=== PATIENT | female | born 1950 | race Caucasian/White ===

== ENCOUNTER → 2017-06-11 | Outpatient (CLI) | payer OTHER ==
[~2017-06-11] MED LIST: BNZ10T PO; CHOL2000 PO; FELO2.5T17 PO; HYDR-3583 PO; INSU100I10 SQ; INSU100I23 SQ; IRON1CAP25 PO; LEVO750T24 PO; LOVA40TA2 PO; LVT.1T PO; METR500T PO; MTF500T PO
--- NOTE | 2017-06-11 19:23 | Diagnostic Imaging Report ---
INDICATION: Routine screening. The current study was also evaluated with a Computer Aided Detection (CAD) system. Comparison is made with prior exams from 02/16/2015 and 02/14/2011. FINDINGS: Moderate parenchymal heterogeneity and increased density is noted, limiting the sensitivity of mammography. There are diffuse bilateral parenchymal and vascular calcifications. No dominant mass or malignant-appearing microcalcifications are seen. The axillae are unremarkable. IMPRESSION: No mammographic features suspicious for malignancy are identified. ACR BI-RADS Category 2: Benign findings. Result letter will be mailed to the patient. Note: At least 10% of breast cancer is not imaged by mammography. Dictated by: Dictated on workstation # [id number]
== END ==
LOC: RAD 13:31
PROVIDERS: ATTEND Internal Medicine
DX: Z12.31 Encounter for screening mammogram for malignant neoplasm of breast (principal)
CPT/HCPCS: 77067

== ENCOUNTER 2018-03-11 06:26 | Outpatient (CLI) | payer MEDICARE ==
[~2018-03-11] VITALS: Ht 160 cm; Wt 113.4 kg
[2018-03-11] MEDS ORDERED: BENA20TA7 PO (13:55)
[2018-03-11] MEDS ORDERED: LEVO125T6 PO (13:55)
[2018-03-11] MEDS ORDERED: IRON150C13 PO (13:55)
[2018-03-11] MEDS ORDERED: CHOL500044 PO (13:55)
[2018-03-11] MEDS ORDERED: ATOR40TA70 PO (13:55)
[2018-03-11] MEDS ORDERED: FELO5TAB3 PO (13:55)
[2018-03-11] MEDS ORDERED: INSU100I10 SQ (13:55)
== END 2018-03-11 13:59 | disposition home or self-care (01) ==
LOC: PREOP 06:26
PROVIDERS: ATTEND Specialist
DX: Z01.818 Encounter for other preprocedural examination (principal)

== ENCOUNTER 2018-03-12 08:49 | Day surgery (SDC) | payer MEDICARE, OTHER ==
[~2018-03-12] VITALS: Ht 160 cm; Wt 113.4 kg
[~2018-03-12 08:49] MED LIST changes: +ATOR40TA70 PO; +BENA20TA7 PO; +CHOL500044 PO; +FELO5TAB3 PO; +IRON150C13 PO; +LEVO125T6 PO
--- OUTSIDE RECORDS SUMMARY | 2018-03-12 08:53 | XMS REPORT | Clinical Summary ---
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 2012 Ariana Quarles Other nondiabetic proliferative retinopathy DIABETES MELLITUS, NONINSULIN DEPENDENT (NIDDM) 250.02 Active Ariana Quarles Diabetes mellitus without mention of complication, type II or unspecified type, uncontrolled HYPERTENSION 401.1 Active Ariana Quarles Benign essential hypertension PROTEINURIA 791.0 Resolved Ariana Quarles Proteinuria HYPERTRIGLYCERIDEMIA 272.1 Active Ariana Quarles Pure hyperglyceridemia HYPOTHYROIDISM, PRIMARY 244.9 Active Ariana Quarles Unspecified hypothyroidism RETINOPATHY OF PREMATURITY STAGE 3 362.25 Resolved Ariana Quarles Retinopathy of prematurity, stage 3 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 Ariana Quarles Proteinuria DIABETIC RETINOPATHY 250.50 Active Ariana Quarles Diabetes mellitus with ophthalmic manifestations, type II or unspecified type, not stated as uncontrolled ABDOMINAL PAIN, RIGHT UPPER QUADRANT 789.01 Resolved Ariana Quarles Abdominal pain, right upper quadrant ANEMIA NOS 285.9 Correction Ariana Quarles Anemia, unspecified ANEMIA, IRON DEFICIENCY NEC 280.8 Active Ariana Quarles Other specified iron deficiency anemias HEALTH SCREENING V70.0 Resolved Ariana Quarles Routine general medical examination at a health care facility HEALTH SCREENING V70.0 Resolved Ariana Quarles Routine general medical examination at a health care facility HEALTH SCREENING V70.0 Active Ariana Quarles Routine general medical examination at a health care facility Medication List Medication Instructions Start Date Stop Date Generic Name NDC Status Provider Patient Instruction FERREX 150 150 MG CAPS 1 PO bid POLYSACCHARIDE IRON COMPLEX 11384998283 Active Chitra Newman SYNTHROID 125 MCG TABS 1 PO daily LEVOTHYROXINE SODIUM 62138066107 Active Chitra Newman FELODIPINE ER 5 MG [id number] 1 PO daily FELODIPINE 71286859593 Active Chitra Newman HUMALOG KWIKPEN 100 UNIT/ML SOLN 5 units SQ before breakfast 2012 INSULIN LISPRO (HUMAN) 26552238686 No Longer Active Ariana Quarles DIALYVITE VITAMIN D 5000 CAPS 1 po daily CHOLECALCIFEROL CAPS 47261001912 Active Ariana Quarles LIPITOR 40 MG TABS 1 PO daily ATORVASTATIN CALCIUM 32014634970 Active Chitra Newman VITAMIN D (ERGOCALCIFEROL) 50032 UNIT CAPS 1 PO daily ERGOCALCIFEROL 43526509331 No Longer Active Ariana Quarles FERROUS SULFATE CR 325 MG TBCR 1 PO daily FERROUS SULFATE No Longer Active Ariana Quarles NORVASC 2.5 MG TAB 1 PO daily AMLODIPINE BESYLATE 60583614447 No Longer Active Chitra Newman VITAMIN D 2000 UNIT TABS 2 PO daily CHOLECALCIFEROL 28112402111 No Longer Active Ariana Quarles LOVASTATIN 40 MG TABS 1 PO daily LOVASTATIN 96179074248 No Longer Active Chitra Newman METFORMIN HCL 500 MG TABS 2 PO BID METFORMIN HCL 40725885308 Active Chitra Newman LOTENSIN 10 MG TAB 1 PO daily to protect kidneys and eyes BENAZEPRIL HCL 26975606985 Active Chitra Newman LANTUS SOLOSTAR 100 UNIT/ML SOLN 17 units SQ QHS INSULIN GLARGINE 93804100036 Active Chitra Newman METANX TABS 1 po BID [id number] TABS 06277209070 No Longer Active Ariana Quarles PEN NEEDLES 08/28" 31G X 8 MM MISC as directed Dx: diabetes INSULIN PEN NEEDLE 00023033361 Active Ariana Quarles FELODIPINE 2.5 MG TB24 1 PO daily for BP FELODIPINE 45599739114 No Longer Active Ariana Quarles Immunizations Vaccine Administration Date Value Standard Description Influenza vaccine given done influenza virus vaccine, unspecified formulation Influenza vaccine given DONE influenza virus vaccine, unspecified formulation Influenza vaccine given Done influenza virus vaccine, unspecified formulation Vital Signs Date Name Value Unit Range Description blood pressure, diastolic - 8462-4 80 mm[Hg] BP santana blood pressure, systolic - 8480-6 135 mm[Hg] BP sys pulse rate E&M - 8867-4 84 /min Heart rate respiratory rate E&M - 9279-1 14 /min Resp rate weight E&M - 3141-9 261 [lb_av] Weight Measured blood pressure, diastolic - 8462-4 84 mm[Hg] BP santana blood pressure, systolic - 8480-6 164 mm[Hg] BP sys pulse rate E&M - 8867-4 80 /min Heart rate respiratory rate E&M - 9279-1 12 /min Resp rate weight E&M - 3141-9 279 [lb_av] Weight Measured blood pressure, diastolic - 8462-4 70 mm[Hg] BP santana blood pressure, systolic - 8480-6 130 mm[Hg] BP sys pulse rate E&M - 8867-4 90 /min Heart rate respiratory rate E&M - 9279-1 14 /min Resp rate temperature E&M 98.6 [degF] Body temperature weight E&M - 3141-9 275 [lb_av] Weight Measured Diagnostic Results Date Name Value Unit Range Description Clinical Lists Update: CBC,CMP,Chol,Trig,Ferritin,TSH,Free T4,HgA1c - Chemistry Estimated Glomerular Filtration Rate (calc) 79 mL/min/1.73m2 thyroxine, serum, free 1.08 ng/dL glucose, plasma fasting 132 mg/dL alkaline phosphatase, serum 84 U/L urea nitrogen, blood 20 mg/dL anion gap, serum 15 calcium, serum 9.5 mg/dL sodium, serum 137 mmol/L chloride, serum 100 mmol/L triglyceride, serum, fasting 202 mg/dL cholesterol, serum 163 mg/dL bilirubin, serum, total 0.4 mg/dL alanine aminotransferase (SGPT), serum 14 U/L aspartate aminotransferase (SGOT), serum 13 U/L protein, total, serum 6.4 g/dL potassium, serum 4.3 mmol/L carbon dioxide, venous blood 26.0 mmol/L creatinine, serum 0.8 mg/dL thyroid stimulating hormone, serum 7.37 u[iU]/mL ferritin, serum 73.9 ng/mL hemoglobin A1C, blood, as % of total hemoglobin 6.0 % albumin, serum 3.9 g/dL Clinical Lists Update: CBC,CMP,Chol,Trig,Ferritin,TSH,Free T4,HgA1c - Hematology hematocrit, blood 37 % hemoglobin, blood 11.1 g/dL platelet count 312 10*3/mm3 erythrocyte (RBC) count 4.06 10*6/mm3 leukocyte count, blood 6.9 10*3/mm3 mean corpuscular volume, RBC 90 fL red blood cell distribution width 17.0 % Clinical Lists Update: CBC,CMP,FLP,HGA1C,FERRITIN,TSH,FREE T4 - Chemistry carbon dioxide, venous blood 26.0 mmol/L HDL cholesterol, serum 43.0 mg/dL cholesterol, serum 153 mg/dL sodium, serum 137 mmol/L chloride, serum 102 mmol/L anion gap, serum 13 calcium, serum 9.2 mg/dL cholesterol/HDL ratio, serum, percent 3.6 urea nitrogen, blood 17 mg/dL glucose, plasma fasting 131 mg/dL Estimated Glomerular Filtration Rate (calc) 82 mL/min/1.73m2 triglyceride, serum, fasting 142 mg/dL thyroxine, serum, free 1.07 ng/dL thyroid stimulating hormone, serum 5.01 u[iU]/mL ferritin, serum 75.6 ng/mL LDL cholesterol, serum 82 mg/dL creatinine, serum 0.8 mg/dL potassium, serum 4.3 mmol/L Clinical Lists Update: CBC,CMP,FLP,HGA1C,FERRITIN,TSH,FREE T4 - Hematology hematocrit, blood 36 % leukocyte count, blood 7.2 10*3/mm3 platelet count 317 10*3/mm3 mean corpuscular volume, RBC 89 fL hemoglobin, blood 10.9 g/dL red blood cell distribution width 16.5 % erythrocyte (RBC) count 4.05 10*6/mm3 Office Visit: Dr Quarles's Check Up: Established Patient Visit - Chemistry Estimated Glomerular Filtration Rate (calc) 86 mL/min/1.73m2 glucose, plasma fasting 120 mg/dL cholesterol/HDL ratio, serum, percent 3.6 anion gap, serum 12 sodium, serum 140 mmol/L triglyceride, serum, fasting 131 mg/dL bilirubin, serum, total 0.4 mg/dL alanine aminotransferase (SGPT), serum 13 U/L aspartate aminotransferase (SGOT), serum 13 U/L protein, total, serum 5.9 g/dL potassium, serum 4.3 mmol/L LDL cholesterol, serum 80 mg/dL thyroid stimulating hormone, serum 3.80 u[iU]/mL hemoglobin A1C, blood, as % of total hemoglobin 5.9 % HDL cholesterol, serum 41.0 mg/dL thyroxine, serum, free 1.13 ng/dL ferritin, serum 68.9 ng/mL creatinine, serum 0.7 mg/dL carbon dioxide, venous blood 28.0 mmol/L cholesterol, serum 147 mg/dL chloride, serum 104 mmol/L calcium, serum 9.5 mg/dL urea nitrogen, blood 14 mg/dL alkaline phosphatase, serum 65 U/L albumin, serum 4.0 g/dL Office Visit: Dr Quarles's Check Up: Established Patient Visit - Hematology red blood cell distribution width 17.6 % mean corpuscular volume, RBC 90 fL leukocyte count, blood 5.5 10*3/mm3 erythrocyte (RBC) count 3.87 10*6/mm3 platelet count 271 10*3/mm3 hemoglobin, blood 10.5 g/dL hematocrit, blood 35 % Office Visit: Dr Quarles's Check Up: Established Patient Visit - Urinalysis microalbumin, urine, semiquantitative 38.3 mg/dL Encounters Code Encounter Date Provider Facility CPT-81215 Ofc Vst, Est Level IV 20:29:48 CDT Arianamarcus Quarles, DO, FACP CPT-67457 Ofc Vst, Est Level IV 16:28:57 CDT Ariana Siria Quarles, DO, FACP CPT-30788 Ofc Vst, Est Level IV 14:47:38 CDT Ariana Quarles, DO, FACP CPT-01284 Ofc Vst, Est Level III 13:43:09 [employer] Ariana Quarles, DO, FACP CPT-30150 Ofc Vst, Est Level IV 13:45:33 CDT Arianamarcus Quarles, DO, FACP CPT-40281 Ofc Vst, Est Level IV 10:19:14 CDT Ariana Quarles, DO, FACP CPT-09421 Ofc Vst, Est Level IV 10:52:40 [employer] Ariana Quarles, DO, FACP CPT-12866 Ofc Vst, Est Level IV 15:52:35 CDT Ariana Quarles, DO, FACP CPT-74259 Ofc Vst, Est Level IV 14:06:04 CDT Ariana Quarles, DO, FACP CPT-56490 Ofc Vst, Est Level IV 10:32:03 [employer] Ariana Quarles, DO, FACP CPT-28488 Ofc Vst, Est Level IV 16:32:36 CDT [facility] CPT-74990 Ofc Vst, Est Level IV 09:43:53 CDT Ariana Ozuna Robina, DO, FACP CPT-63555 Ofc Vst, Est Level IV 10:06:42 [employer] Ariana Ozuna Robina, DO, FACP CPT-22711 Ofc Vst, Est Level V 09:50:31 CDT Arianamarcus Ozuna Robina, DO, FACP CPT-75155 Ofc Vst, Est Level IV 14:59:36 CDT Ariana Ozuna Robina, DO, FACP CPT-37128 Ofc Vst, Est Level V 12:29:58 CDT Ariana Ozuna Robina, DO, FACP CPT-96263 Ofc Vst, Est Level V 11:22:18 CDT Ariana Ozuna Robina, DO, FACP CPT-94718 Ofc Vst, New Level IV 19:50:46 CDT Ariana Ozuna Robina, DO, FACP Procedures Code Procedure Name Date Entry Date Standard Description CPT-73962 Preventive, Est, (40-64) 16:45:15 MO[employer] CPT-91678 Preventive, Est, (40-64) 20:21:37 MO[employer] CPT-61492 Preventive, Est, (40-64) 16:40:52 CDT
--- OUTSIDE RECORDS SUMMARY | 2018-03-12 08:53 | XMS REPORT | Clinical Summary ---
Author Author User, [employer] Organization Ariana Quarles DO, FACP Address Unknown [...] CAPS 1 PO bid POLYSACCHARIDE IRON COMPLEX 25197089872 Active Chitra Newman SYNTHROID 125 MCG TABS 1 PO daily LEVOTHYROXINE SODIUM 29525648153 Active Chitra Newman FELODIPINE ER 5 MG [id number] 1 PO daily FELODIPINE 89138442980 Active Chitra Newman HUMALOG KWIKPEN 100 UNIT/ML SOLN 5 units SQ before breakfast 2012 INSULIN LISPRO (HUMAN) 54454097447 No Longer Active Ariana Quarles DIALYVITE VITAMIN D 5000 CAPS 1 po daily CHOLECALCIFEROL CAPS 42835218579 Active Ariana Quarles LIPITOR 40 MG TABS 1 PO daily ATORVASTATIN CALCIUM 61304578743 Active Chitra Newman VITAMIN D (ERGOCALCIFEROL) 17192 UNIT CAPS 1 PO daily ERGOCALCIFEROL 18397022111 No Longer Active Ariana Quarles FERROUS SULFATE CR 325 MG TBCR 1 PO daily FERROUS SULFATE No Longer Active Ariana Quarles NORVASC 2.5 MG TAB 1 PO daily AMLODIPINE BESYLATE 80304105258 No Longer Active Chitra Newman VITAMIN D 2000 UNIT TABS 2 PO daily CHOLECALCIFEROL 24065179648 No Longer Active Ariana Quarles LOVASTATIN 40 MG TABS 1 PO daily LOVASTATIN 88286244671 No Longer Active Chitra Newman METFORMIN HCL 500 MG TABS 2 PO BID METFORMIN HCL 47454046174 Active Chitra Newman LOTENSIN 10 MG TAB 1 PO daily to protect kidneys and eyes BENAZEPRIL HCL 91464695328 Active Chitra Newman LANTUS SOLOSTAR 100 UNIT/ML SOLN 17 units SQ QHS INSULIN GLARGINE 62600782472 Active Chitra Newman METANX TABS 1 po BID [id number] TABS 30856533824 No Longer Active Ariana Quarles PEN NEEDLES 08/28" 31G X 8 MM MISC as directed Dx: diabetes INSULIN PEN NEEDLE 21266733927 Active Ariana Quarles FELODIPINE 2.5 MG TB24 1 PO daily for BP FELODIPINE 67328417010 No Longer Active Ariana Quarles Immunizations Vaccine [...] mg/dL Encounters Code Encounter Date Provider Facility CPT-02673 Ofc Vst, Est Level IV 20:29:48 CDT Arianamarcus Quarles, DO, FACP CPT-18981 Ofc Vst, Est Level IV 16:28:57 CDT Ariana Siria Quarles, DO, FACP CPT-79701 Ofc Vst, Est Level IV 14:47:38 CDT Ariana Quarles, DO, FACP CPT-13851 Ofc Vst, Est Level III 13:43:09 BULB P[employer] Ariana Quarles, DO, FACP CPT-90143 Ofc Vst, Est Level IV 13:45:33 CDT Arianamarcus Quarles, DO, FACP CPT-61706 Ofc Vst, Est Level IV 10:19:14 CDT Ariana Quarles, DO, FACP CPT-19973 Ofc Vst, Est Level IV 10:52:40 BULB PACKER Ariana Quarles, DO, FACP CPT-35524 Ofc Vst, Est Level IV 15:52:35 CDT Ariana Quarles, DO, FACP CPT-34239 Ofc Vst, Est Level IV 14:06:04 CDT Ariana Quarles, DO, FACP CPT-74691 Ofc Vst, Est Level IV 10:32:03 BULB PACKER Ariana Quarles, DO, FACP CPT-03220 Ofc Vst, Est Level IV 16:32:36 CDT [facility] CPT-27835 Ofc Vst, Est Level IV 09:43:53 CDT Ariana Ozuna Robina, DO, FACP CPT-10844 Ofc Vst, Est Level IV 10:06:42 BULB PACKER Ariana Ozuna Robina, DO, FACP CPT-95897 Ofc Vst, Est Level V 09:50:31 CDT Arianamarcus Ozuna Robina, DO, FACP CPT-33591 Ofc Vst, Est Level IV 14:59:36 CDT Ariana Ozuna Robina, DO, FACP CPT-42205 Ofc Vst, Est Level V 12:29:58 CDT Ariana Ozuna Robina, DO, FACP CPT-39700 Ofc Vst, Est Level V 11:22:18 CDT Ariana Ozuna Robina, DO, FACP CPT-67561 Ofc Vst, New Level IV 19:50:46 CDT Ariana Ozuna Robina, DO, FACP Procedures Code Procedure Name Date Entry Date Standard Description CPT-88128 Preventive, Est, (40-64) 16:45:15 BULB PACKER CPT-10135 Preventive, Est, (40-64) 20:21:37 BULB PACKER CPT-31848 Preventive, Est, (40-64) 16:40:52 CDT
--- OUTSIDE RECORDS SUMMARY | 2018-03-12 08:54 | XMS REPORT | Clinical Summary ---
Author Author User, [employer] Organization Ariana Quarles DO, FACP Address Unknown [...] CAPS 1 PO bid POLYSACCHARIDE IRON COMPLEX 77795505581 Active Chitra Newman SYNTHROID 125 MCG TABS 1 PO daily LEVOTHYROXINE SODIUM 36389411724 Active Chitra Newman FELODIPINE ER 5 MG [id number] 1 PO daily FELODIPINE 85576478175 Active Chitra Newman HUMALOG KWIKPEN 100 UNIT/ML SOLN 5 units SQ before breakfast 2012 INSULIN LISPRO (HUMAN) 29540418351 No Longer Active Ariana Quarles DIALYVITE VITAMIN D 5000 CAPS 1 po daily CHOLECALCIFEROL CAPS 21815224302 Active Ariana Quarles LIPITOR 40 MG TABS 1 PO daily ATORVASTATIN CALCIUM 61479194708 Active Chitra Newman VITAMIN D (ERGOCALCIFEROL) 44445 UNIT CAPS 1 PO daily ERGOCALCIFEROL 78510776037 No Longer Active Ariana Quarles FERROUS SULFATE CR 325 MG TBCR 1 PO daily FERROUS SULFATE No Longer Active Ariana Quarles NORVASC 2.5 MG TAB 1 PO daily AMLODIPINE BESYLATE 48850810600 No Longer Active Chitra Newman VITAMIN D 2000 UNIT TABS 2 PO daily CHOLECALCIFEROL 35286418309 No Longer Active Ariana Quarles LOVASTATIN 40 MG TABS 1 PO daily LOVASTATIN 33120166427 No Longer Active Chitra Newman METFORMIN HCL 500 MG TABS 2 PO BID METFORMIN HCL 88885854653 Active Chitra Newman LOTENSIN 10 MG TAB 1 PO daily to protect kidneys and eyes BENAZEPRIL HCL 85135209681 Active Chitra Newman LANTUS SOLOSTAR 100 UNIT/ML SOLN 17 units SQ QHS INSULIN GLARGINE 57176996269 Active Chitra Newman METANX TABS 1 po BID [id number] TABS 21173831043 No Longer Active Ariana Quarles PEN NEEDLES 08/28" 31G X 8 MM MISC as directed Dx: diabetes INSULIN PEN NEEDLE 84307539495 Active Ariana Quarles FELODIPINE 2.5 MG TB24 1 PO daily for BP FELODIPINE 89227535054 No Longer Active Ariana Quarles Immunizations Vaccine Administration Date Value Standard Description Influenza vaccine given done influenza virus vaccine, unspecified formulation Influenza vaccine given DONE influenza virus vaccine, unspecified formulation Influenza vaccine given Done influenza virus vaccine, unspecified formulation Vital Signs Date Name Value Unit Range Description blood pressure, diastolic - 8462-4 80 mm[Hg] BP santana blood pressure, systolic - 8480-6 140 mm[Hg] BP sys pulse rate E&M - 8867-4 94 /min Heart rate respiratory rate E&M - 9279-1 14 /min Resp rate temperature E&M 98.6 [degF] Body temperature weight E&M - 3141-9 270 [lb_av] Weight Measured blood pressure, diastolic - 8462-4 80 mm[Hg] [...] E&M - 3141-9 279 [lb_av] Weight Measured Diagnostic Results Date Name Value Unit Range Description Clinical Lists Update: CBC,CMP,Chol,Trig,Ferritin,TSH,Free T4,HgA1c - Chemistry albumin, serum 3.9 g/dL sodium, serum 137 mmol/L urea nitrogen, blood 20 mg/dL calcium, serum 9.5 mg/dL chloride, serum 100 mmol/L cholesterol, serum 163 mg/dL carbon dioxide, venous blood 26.0 mmol/L creatinine, serum 0.8 mg/dL ferritin, serum 73.9 ng/mL thyroxine, serum, free 1.08 ng/dL hemoglobin A1C, blood, as % of total hemoglobin 6.0 % thyroid stimulating hormone, serum 7.37 u[iU]/mL potassium, serum 4.3 mmol/L protein, total, serum 6.4 g/dL aspartate aminotransferase (SGOT), serum 13 U/L alanine aminotransferase (SGPT), serum 14 U/L bilirubin, serum, total 0.4 mg/dL triglyceride, serum, fasting 202 mg/dL Estimated Glomerular Filtration Rate (calc) 79 mL/min/1.73m2 glucose, plasma fasting 132 mg/dL anion gap, serum 15 alkaline phosphatase, serum 84 U/L Clinical Lists Update: CBC,CMP,Chol,Trig,Ferritin,TSH,Free T4,HgA1c - Hematology hemoglobin, blood 11.1 g/dL hematocrit, blood 37 % platelet count 312 10*3/mm3 erythrocyte (RBC) count 4.06 10*6/mm3 leukocyte count, blood 6.9 10*3/mm3 mean corpuscular volume, RBC 90 fL red blood cell distribution width 17.0 % Clinical Lists Update: CBC,CMP,FLP,HGA1C,FERRITIN,TSH,FREE T4 - Chemistry thyroxine, serum, free 1.07 ng/dL urea nitrogen, blood 17 mg/dL thyroid stimulating hormone, serum 5.01 u[iU]/mL LDL cholesterol, serum 82 mg/dL potassium, serum 4.3 mmol/L triglyceride, serum, fasting 142 mg/dL sodium, serum 137 mmol/L anion gap, serum 13 cholesterol/HDL ratio, serum, percent 3.6 glucose, plasma fasting 131 mg/dL Estimated Glomerular Filtration Rate (calc) 82 mL/min/1.73m2 HDL cholesterol, serum 43.0 mg/dL calcium, serum 9.2 mg/dL chloride, serum 102 mmol/L cholesterol, serum 153 mg/dL carbon dioxide, venous blood 26.0 mmol/L creatinine, serum 0.8 mg/dL ferritin, serum 75.6 ng/mL Clinical Lists Update: CBC,CMP,FLP,HGA1C,FERRITIN,TSH,FREE T4 - Hematology hematocrit, blood 36 % hemoglobin, blood 10.9 g/dL platelet count 317 10*3/mm3 erythrocyte (RBC) count 4.05 10*6/mm3 leukocyte count, blood 7.2 10*3/mm3 mean corpuscular volume, RBC 89 fL red blood cell distribution width 16.5 % Clinical Lists Update: CBC,CMP,FLP,TSH,FREE T4,HGA1C,FERRITIN,MICROALBUMIN - Chemistry Estimated Glomerular Filtration Rate (calc) 102 mL/min/1.73m2 glucose, plasma fasting 0.6 mg/dL cholesterol/HDL ratio, serum, percent 3.3 anion gap, serum 13 sodium, serum 138 mmol/L triglyceride, serum, fasting 182 mg/dL bilirubin, serum, total 0.4 mg/dL alanine aminotransferase (SGPT), serum 14 U/L aspartate aminotransferase (SGOT), serum 14 U/L protein, total, serum 6.3 g/dL potassium, serum 4.7 mmol/L LDL cholesterol, serum 59 mg/dL thyroid stimulating hormone, serum 3.92 u[iU]/mL hemoglobin A1C, blood, as % of total hemoglobin 5.9 % HDL cholesterol, serum 42.0 mg/dL thyroxine, serum, free 1.14 ng/dL ferritin, serum 63.7 ng/mL creatinine, serum 17 mg/dL carbon dioxide, venous blood 27.0 mmol/L cholesterol, serum 137 mg/dL chloride, serum 103 mmol/L calcium, serum 9.2 mg/dL alkaline phosphatase, serum 85 U/L albumin, serum 3.8 g/dL Clinical Lists Update: CBC,CMP,FLP,TSH,FREE T4,HGA1C,FERRITIN,MICROALBUMIN - Hematology red blood cell distribution width 17.8 % mean corpuscular volume, RBC 87 fL leukocyte count, blood 6.7 10*3/mm3 erythrocyte (RBC) count 4.08 10*6/mm3 platelet count 282 10*3/mm3 hemoglobin, blood 11.0 g/dL hematocrit, blood 35.3 % Clinical Lists Update: CBC,CMP,FLP,TSH,FREE T4,HGA1C,FERRITIN,MICROALBUMIN - Urinalysis microalbumin, urine, semiquantitative 13.3 mg/dL Encounters Code Encounter Date Provider Facility CPT-22008 Ofc Vst, Est Level IV 16:50:06 CDT Ariana Siria Quarles, DO, FACP CPT-93341 Ofc Vst, Est Level IV 20:29:48 CDT Ariana Siria Quarles, DO, FACP CPT-07814 Ofc Vst, Est Level IV 16:28:57 CDT Ariana Siria Quarles, DO, FACP CPT-11282 Ofc Vst, Est Level IV 14:47:38 CDT Ariana Siria Quarles, DO, FACP CPT-88092 Ofc Vst, Est Level III 13:43:09 CARDIOTHORACIC ICU RN Ariana Quarles, DO, FACP CPT-43108 Ofc Vst, Est Level IV 13:45:33 CDT Ariana Quarles, DO, FACP CPT-99892 Ofc Vst, Est Level IV 10:19:14 CDT Arianamarcus Quarles, DO, FACP CPT-52249 Ofc Vst, Est Level IV 10:52:40 CARDIOTHORACIC ICU RN Ariana Quarles, DO, FACP CPT-49293 Ofc Vst, Est Level IV 15:52:35 CDT Ariana Quarles, DO, FACP CPT-56371 Ofc Vst, Est Level IV 14:06:04 CDT Arianamarcus Quarles, DO, FACP CPT-51159 Ofc Vst, Est Level IV 10:32:03 CARDIOTHORACIC ICU RN Ariana Ozuna Quarles, DO, FACP CPT-46846 Ofc Vst, Est Level IV 16:32:36 CDT [facility] CPT-33768 Ofc Vst, Est Level IV 09:43:53 CDT Ariana Ozuna Quarles, DO, FACP CPT-65254 Ofc Vst, Est Level IV 10:06:42 CARDIOTHORACIC ICU RN Ariana Ozuna Quarles, DO, FACP CPT-93723 Ofc Vst, Est Level V 09:50:31 CDT Ariana Ozuna Robina, DO, FACP CPT-81431 Ofc Vst, Est Level IV 14:59:36 CDT Ariana Ozuna Robina, DO, FACP CPT-73488 Ofc Vst, Est Level V 12:29:58 CDT Ariana Ozuna Quarles, DO, FACP CPT-97653 Ofc Vst, Est Level V 11:22:18 CDT Ariana Ozuna Quarles, DO, FACP CPT-51937 Ofc Vst, New Level IV 19:50:46 CDT Ariana Ozuna Quarles, DO, FACP Procedures Code Procedure Name Date Entry Date Standard Description CPT-27029 Preventive, Est, (40-64) 16:45:15 CARDIOTHORACIC ICU RN CPT-97056 Preventive, Est, (40-64) 20:21:37 CARDIOTHORACIC ICU RN CPT-36653 Preventive, Est, (40-64) 16:40:52 CDT
--- OUTSIDE RECORDS SUMMARY | 2018-03-12 08:54 | XMS REPORT | Clinical Summary ---
Author Author User, [employer] Organization Ariana Quarles DO, FACP Address Unknown [...] CAPS 1 PO bid POLYSACCHARIDE IRON COMPLEX 08528783268 Active Chitra Newman SYNTHROID 125 MCG TABS 1 PO daily LEVOTHYROXINE SODIUM 49581042556 Active Chitra Newman FELODIPINE ER 5 MG [id number] 1 PO daily FELODIPINE 35458282296 Active Chitra Newman HUMALOG KWIKPEN 100 UNIT/ML SOLN 5 units SQ before breakfast 2012 INSULIN LISPRO (HUMAN) 46852186979 No Longer Active Ariana Quarles DIALYVITE VITAMIN D 5000 CAPS 1 po daily CHOLECALCIFEROL CAPS 63611528552 Active Ariana Quarles LIPITOR 40 MG TABS 1 PO daily ATORVASTATIN CALCIUM 54747758380 Active Chitra Newman VITAMIN D (ERGOCALCIFEROL) 22333 UNIT CAPS 1 PO daily ERGOCALCIFEROL 59060674601 No Longer Active Ariana Quarles FERROUS SULFATE CR 325 MG TBCR 1 PO daily FERROUS SULFATE No Longer Active Ariana Quarles NORVASC 2.5 MG TAB 1 PO daily AMLODIPINE BESYLATE 03562019269 No Longer Active Chitra Newman VITAMIN D 2000 UNIT TABS 2 PO daily CHOLECALCIFEROL 58264665808 No Longer Active Ariana Quarles LOVASTATIN 40 MG TABS 1 PO daily LOVASTATIN 74843001501 No Longer Active Chitra Newman METFORMIN HCL 500 MG TABS 2 PO BID METFORMIN HCL 53117329991 Active Chitra Newman LOTENSIN 10 MG TAB 1 PO daily to protect kidneys and eyes BENAZEPRIL HCL 14400606223 Active Chitra Newman LANTUS SOLOSTAR 100 UNIT/ML SOLN 17 units SQ QHS INSULIN GLARGINE 45833920638 Active Chitra Newman METANX TABS 1 po BID [id number] TABS 62075838845 No Longer Active Ariana Quarles PEN NEEDLES 08/28" 31G X 8 MM MISC as directed Dx: diabetes INSULIN PEN NEEDLE 64074680040 Active Ariana Quarles FELODIPINE 2.5 MG TB24 1 PO daily for BP FELODIPINE 51095057462 No Longer Active Ariana Quarles Immunizations Vaccine [...] mg/dL Encounters Code Encounter Date Provider Facility CPT-42432 Ofc Vst, Est Level IV 16:50:06 CDT Ariana Siria Quarles, DO, FACP CPT-39960 Ofc Vst, Est Level IV 20:29:48 CDT Ariana Siria Quarles, DO, FACP CPT-09151 Ofc Vst, Est Level IV 16:28:57 CDT Ariana Siria Quarles, DO, FACP CPT-05466 Ofc Vst, Est Level IV 14:47:38 CDT Ariana Siria Quarles, DO, FACP CPT-99396 Ofc Vst, Est Level III 13:43:09 SPINNING LATHE OPERATOR HYDRAULIC Ariana Quarles, DO, FACP CPT-58880 Ofc Vst, Est Level IV 13:45:33 CDT Ariana Quarles, DO, FACP CPT-60826 Ofc Vst, Est Level IV 10:19:14 CDT Arianamarcus Quarles, DO, FACP CPT-55440 Ofc Vst, Est Level IV 10:52:40 SPINNING LATHE OPERATOR HYDRAULIC Ariana Quarles, DO, FACP CPT-94485 Ofc Vst, Est Level IV 15:52:35 CDT Ariana Quarles, DO, FACP CPT-77026 Ofc Vst, Est Level IV 14:06:04 CDT Arianamarcus Quarles, DO, FACP CPT-03729 Ofc Vst, Est Level IV 10:32:03 SPINNING LATHE OPERATOR HYDRAULIC Ariana Ozuna Quarles, DO, FACP CPT-73516 Ofc Vst, Est Level IV 16:32:36 CDT Ariana [facility] OFFICE CPT-79056 Ofc Vst, Est Level IV 09:43:53 CDT Ariana Ozuna Quarles, DO, FACP CPT-89987 Ofc Vst, Est Level IV 10:06:42 SPINNING LATHE OPERATOR HYDRAULIC Ariana Ozuna Quarles, DO, FACP CPT-73578 Ofc Vst, Est Level V 09:50:31 CDT Ariana Ozuna Robina, DO, FACP CPT-03371 Ofc Vst, Est Level IV 14:59:36 CDT Ariana Ozuna Robina, DO, FACP CPT-94567 Ofc Vst, Est Level V 12:29:58 CDT Ariana Ozuna Quarles, DO, FACP CPT-91736 Ofc Vst, Est Level V 11:22:18 CDT Ariana Ozuna Quarles, DO, FACP CPT-00770 Ofc Vst, New Level IV 19:50:46 CDT Ariana Ozuna Quarles, DO, FACP Procedures Code Procedure Name Date Entry Date Standard Description CPT-57252 Preventive, Est, (40-64) 16:45:15 SPINNING LATHE OPERATOR HYDRAULIC CPT-24659 Preventive, Est, (40-64) 20:21:37 SPINNING LATHE OPERATOR HYDRAULIC CPT-24719 Preventive, Est, (40-64) 16:40:52 CDT
--- OUTSIDE RECORDS SUMMARY | 2018-03-12 08:55 | XMS REPORT | Clinical Summary ---
Author Author User, [employer] Organization Ariana Quarles DO, FACP Address Unknown [...] CAPS 1 PO bid POLYSACCHARIDE IRON COMPLEX 91711633615 Active Chitra Newman SYNTHROID 125 MCG TABS 1 PO daily LEVOTHYROXINE SODIUM 18873203682 Active Chitra Newman FELODIPINE ER 5 MG [id number] 1 PO daily FELODIPINE 62241330444 Active Chitra Newman HUMALOG KWIKPEN 100 UNIT/ML SOLN 5 units SQ before breakfast 2012 INSULIN LISPRO (HUMAN) 21208567279 No Longer Active Ariana Quarles DIALYVITE VITAMIN D 5000 CAPS 1 po daily CHOLECALCIFEROL CAPS 01771326141 Active Ariana Quarles LIPITOR 40 MG TABS 1 PO daily ATORVASTATIN CALCIUM 22488316214 Active Chitra Newman VITAMIN D (ERGOCALCIFEROL) 66433 UNIT CAPS 1 PO daily ERGOCALCIFEROL 40098634983 No Longer Active Ariana Quarles FERROUS SULFATE CR 325 MG TBCR 1 PO daily FERROUS SULFATE No Longer Active Ariana Quarles NORVASC 2.5 MG TAB 1 PO daily AMLODIPINE BESYLATE 72352135853 No Longer Active Chitra Newman VITAMIN D 2000 UNIT TABS 2 PO daily CHOLECALCIFEROL 09406659190 No Longer Active Ariana Quarles LOVASTATIN 40 MG TABS 1 PO daily LOVASTATIN 06616486103 No Longer Active Chitra Newman METFORMIN HCL 500 MG TABS 2 PO BID METFORMIN HCL 10657253251 Active Chitra Newman LOTENSIN 10 MG TAB 1 PO daily to protect kidneys and eyes BENAZEPRIL HCL 28332818954 Active Chitra Newman LANTUS SOLOSTAR 100 UNIT/ML SOLN 17 units SQ QHS INSULIN GLARGINE 67431809151 Active Chitra Newman METANX TABS 1 po BID [id number] TABS 23070840040 No Longer Active Ariana Quarles PEN NEEDLES 08/28" 31G X 8 MM MISC as directed Dx: diabetes INSULIN PEN NEEDLE 60096920339 Active Ariana Quarles FELODIPINE 2.5 MG TB24 1 PO daily for BP FELODIPINE 63383094320 No Longer Active Ariana Quarles Immunizations Vaccine [...] fasting 132 mg/dL anion gap, serum 15 sodium, serum 137 mmol/L triglyceride, serum, fasting 202 mg/dL bilirubin, serum, total 0.4 mg/dL alanine aminotransferase (SGPT), serum 14 U/L aspartate aminotransferase (SGOT), serum 13 U/L protein, total, serum 6.4 g/dL potassium, serum 4.3 mmol/L thyroid stimulating hormone, serum 7.37 u[iU]/mL hemoglobin A1C, blood, as % of total hemoglobin 6.0 % thyroxine, serum, free 1.08 ng/dL ferritin, serum 73.9 ng/mL creatinine, serum 0.8 mg/dL carbon dioxide, venous blood 26.0 mmol/L cholesterol, serum 163 mg/dL chloride, serum 100 mmol/L calcium, serum 9.5 mg/dL urea nitrogen, blood 20 mg/dL alkaline phosphatase, serum 84 U/L albumin, serum 3.9 g/dL Clinical Lists Update: CBC,CMP,Chol,Trig,Ferritin,TSH,Free T4,HgA1c - Hematology platelet count 312 10*3/mm3 red blood cell distribution width 17.0 % hematocrit, blood 37 % erythrocyte (RBC) count 4.06 10*6/mm3 hemoglobin, blood 11.1 g/dL mean corpuscular volume, RBC 90 fL leukocyte count, blood 6.9 10*3/mm3 Clinical Lists Update: CBC,CMP,FLP,HGA1C,FERRITIN,TSH,FREE T4 - Chemistry urea nitrogen, blood 17 mg/dL potassium, serum 4.3 mmol/L creatinine, serum 0.8 mg/dL sodium, serum 137 mmol/L ferritin, serum 75.6 ng/mL glucose, plasma fasting 131 mg/dL thyroxine, serum, free 1.07 ng/dL cholesterol/HDL ratio, serum, percent 3.6 carbon dioxide, venous blood 26.0 mmol/L thyroid stimulating hormone, serum 5.01 u[iU]/mL calcium, serum 9.2 mg/dL triglyceride, serum, fasting 142 mg/dL chloride, serum 102 mmol/L LDL cholesterol, serum 82 mg/dL cholesterol, serum 153 mg/dL Estimated Glomerular Filtration Rate (calc) 82 mL/min/1.73m2 HDL cholesterol, serum 43.0 mg/dL anion gap, serum 13 Clinical Lists Update: CBC,CMP,FLP,HGA1C,FERRITIN,TSH,FREE T4 - Hematology hematocrit, blood 36 % platelet count 317 10*3/mm3 red blood cell distribution width 16.5 % erythrocyte (RBC) count 4.05 10*6/mm3 leukocyte count, blood 7.2 10*3/mm3 mean corpuscular volume, RBC 89 fL hemoglobin, blood 10.9 g/dL Clinical Lists Update: CBC,CMP,FLP,TSH,FREE T4,HGA1C,FERRITIN,MICROALBUMIN - Chemistry albumin, serum 3.8 g/dL alkaline phosphatase, serum 85 U/L calcium, serum 9.2 mg/dL chloride, serum 103 mmol/L cholesterol, serum 137 mg/dL carbon dioxide, venous blood 27.0 mmol/L creatinine, serum 17 mg/dL ferritin, serum 63.7 ng/mL thyroxine, serum, free 1.14 ng/dL HDL cholesterol, serum 42.0 mg/dL hemoglobin A1C, blood, as % of total hemoglobin 5.9 % thyroid stimulating hormone, serum 3.92 u[iU]/mL LDL cholesterol, serum 59 mg/dL potassium, serum 4.7 mmol/L protein, total, serum 6.3 g/dL aspartate aminotransferase (SGOT), serum 14 U/L alanine aminotransferase (SGPT), serum 14 U/L bilirubin, serum, total 0.4 mg/dL triglyceride, serum, fasting 182 mg/dL sodium, serum 138 mmol/L anion gap, serum 13 cholesterol/HDL ratio, serum, percent 3.3 glucose, plasma fasting 0.6 mg/dL Estimated Glomerular Filtration Rate (calc) 102 mL/min/1.73m2 Clinical Lists Update: CBC,CMP,FLP,TSH,FREE T4,HGA1C,FERRITIN,MICROALBUMIN - Hematology platelet count 282 10*3/mm3 leukocyte count, blood 6.7 10*3/mm3 mean corpuscular volume, RBC 87 fL hemoglobin, blood 11.0 g/dL red blood cell distribution width 17.8 % hematocrit, blood 35.3 % erythrocyte (RBC) count 4.08 10*6/mm3 Clinical Lists Update: CBC,CMP,FLP,TSH,FREE T4,HGA1C,FERRITIN,MICROALBUMIN - Urinalysis microalbumin, urine, semiquantitative 13.3 mg/dL Encounters Code Encounter Date Provider Facility CPT-93126 Ofc Vst, Est Level IV 16:50:06 CDT Ariana Siria Quarles, DO, FACP CPT-38160 Ofc Vst, Est Level IV 20:29:48 CDT Ariana Siria Quarles, DO, FACP CPT-72954 Ofc Vst, Est Level IV 16:28:57 CDT Ariana Siria Quarles, DO, FACP CPT-90544 Ofc Vst, Est Level IV 14:47:38 CDT Ariana Siria Quarles, DO, FACP CPT-74636 Ofc Vst, Est Level III 13:43:09 PRINTED CIRCUIT BOARDS CONTACT PRINTER Ariana Quarles, DO, FACP CPT-39975 Ofc Vst, Est Level IV 13:45:33 CDT Ariana Quarles, DO, FACP CPT-20535 Ofc Vst, Est Level IV 10:19:14 CDT Arianamarcus Quarles, DO, FACP CPT-20794 Ofc Vst, Est Level IV 10:52:40 PR[employer]ED CIRCUIT BOAR[employer] CONTACT PRINTER Ariana Quarles, DO, FACP CPT-86783 Ofc Vst, Est Level IV 15:52:35 CDT Ariana Quarles, DO, FACP CPT-16130 Ofc Vst, Est Level IV 14:06:04 CDT Arianamarcus Quarles, DO, FACP CPT-75548 Ofc Vst, Est Level IV 10:32:03 PRINTED CIRCUIT BOAR[employer] CONTACT PRINTER Ariana Ozuna Quarles, DO, FACP CPT-45789 Ofc Vst, Est Level IV 16:32:36 CDT Ariana [facility] OFFICE CPT-51492 Ofc Vst, Est Level IV 09:43:53 CDT Ariana Ozuna Quarles, DO, FACP CPT-36951 Ofc Vst, Est Level IV 10:06:42 PRINTED CIRCUIT BOAR[employer] CONTACT PRINTER Ariana Ozuna Quarles, DO, FACP CPT-53444 Ofc Vst, Est Level V 09:50:31 CDT Ariana Ozuna Robina, DO, FACP CPT-28275 Ofc Vst, Est Level IV 14:59:36 CDT Ariana Ozuna Robina, DO, FACP CPT-50040 Ofc Vst, Est Level V 12:29:58 CDT Ariana Ozuna Quarles, DO, FACP CPT-95251 Ofc Vst, Est Level V 11:22:18 CDT Ariana Ozuna Quarles, DO, FACP CPT-41095 Ofc Vst, New Level IV 19:50:46 CDT Ariana Ozuna Quarles, DO, FACP Procedures Code Procedure Name Date Entry Date Standard Description CPT-76513 Preventive, Est, (40-64) 16:45:15 PRINTED CIRCUIT BOARDS CONTACT PRINTER CPT-48295 Preventive, Est, (40-64) 20:21:37 PRINTED CIRCUIT BOARDS CONTACT PRINTER CPT-80444 Preventive, Est, (40-64) 16:40:52 CDT
--- OUTSIDE RECORDS SUMMARY | 2018-03-12 08:55 | XMS REPORT | Clinical Summary ---
Author Author User, [employer] Organization Ariana Quarles DO, FACP Address Unknown [...] right upper quadrant ANEMIA NOS 285.9 Correction Ariaan Quarles Anemia, unspecified ANEMIA, IRON DEFICIENCY NEC [...] CAPS 1 PO bid POLYSACCHARIDE IRON COMPLEX 99952625426 Active Chitra Newman SYNTHROID 125 MCG TABS 1 PO daily LEVOTHYROXINE SODIUM 39411289794 Active Chitra Newman FELODIPINE ER 5 MG [id number] 1 PO daily FELODIPINE 15525416722 Active Chitra Newman HUMALOG KWIKPEN 100 UNIT/ML SOLN 5 units SQ before breakfast 2012 INSULIN LISPRO (HUMAN) 28563838431 No Longer Active Ariana Quarles DIALYVITE VITAMIN D 5000 CAPS 1 po daily CHOLECALCIFEROL CAPS 88684228657 Active Ariana Quarles LIPITOR 40 MG TABS 1 PO daily ATORVASTATIN CALCIUM 02285663847 Active Chitra Newman VITAMIN D (ERGOCALCIFEROL) 54057 UNIT CAPS 1 PO daily ERGOCALCIFEROL 77383646071 No Longer Active Ariana Quarles FERROUS SULFATE CR 325 MG TBCR 1 PO daily FERROUS SULFATE No Longer Active Ariana Quarles NORVASC 2.5 MG TAB 1 PO daily AMLODIPINE BESYLATE 12846178537 No Longer Active Chitra Newman VITAMIN D 2000 UNIT TABS 2 PO daily CHOLECALCIFEROL 41607824368 No Longer Active Ariana Quarles LOVASTATIN 40 MG TABS 1 PO daily LOVASTATIN 42370681307 No Longer Active Chitra Newman METFORMIN HCL 500 MG TABS 2 PO BID METFORMIN HCL 93918904185 Active Chitra Newman LOTENSIN 10 MG TAB 1 PO daily to protect kidneys and eyes BENAZEPRIL HCL 22337952209 Active Chitra Newman LANTUS SOLOSTAR 100 UNIT/ML SOLN 17 units SQ QHS INSULIN GLARGINE 28383999005 Active Chitra Newman METANX TABS 1 po BID [id number] TABS 72203183085 No Longer Active Ariana Quarles PEN NEEDLES 08/28" 31G X 8 MM MISC as directed Dx: diabetes INSULIN PEN NEEDLE 95846553285 Active Ariana Quarles FELODIPINE 2.5 MG TB24 1 PO daily for BP FELODIPINE 54331964571 No Longer Active Ariana Quarles Immunizations Vaccine [...] mg/dL Encounters Code Encounter Date Provider Facility CPT-37964 Ofc Vst, Est Level IV 16:50:06 CDT Ariana Siria Quarles, DO, FACP CPT-92010 Ofc Vst, Est Level IV 20:29:48 CDT Ariana Siria Quarles, DO, FACP CPT-31877 Ofc Vst, Est Level IV 16:28:57 CDT Ariana Siria Quarles, DO, FACP CPT-44157 Ofc Vst, Est Level IV 14:47:38 CDT Ariana Siria Quarles, DO, FACP CPT-29506 Ofc Vst, Est Level III 13:43:09 CUSTOMER COUNTER REPRESENTATIVE Ariana Quarles, DO, FACP CPT-06959 Ofc Vst, Est Level IV 13:45:33 CDT Ariana Quarles, DO, FACP CPT-04859 Ofc Vst, Est Level IV 10:19:14 CDT Arianamarcus Quarles, DO, FACP CPT-50080 Ofc Vst, Est Level IV 10:52:40 CUSTOMER COUNTER REPRESENTATIVE Ariana Quarles, DO, FACP CPT-29911 Ofc Vst, Est Level IV 15:52:35 CDT Ariana Quarles, DO, FACP CPT-74256 Ofc Vst, Est Level IV 14:06:04 CDT Arianamarcus Quarles, DO, FACP CPT-80201 Ofc Vst, Est Level IV 10:32:03 CUSTOMER COUNTER REPRESENTATIVE Ariana Ozuna Quarles, DO, FACP CPT-65051 Ofc Vst, Est Level IV 16:32:36 CDT Ariana [facility] OFFICE CPT-27601 Ofc Vst, Est Level IV 09:43:53 CDT Ariana Ozuna Quarles, DO, FACP CPT-91306 Ofc Vst, Est Level IV 10:06:42 CUSTOMER COUNTER REPRESENTATIVE Ariana Ozuna Quarles, DO, FACP CPT-12620 Ofc Vst, Est Level V 09:50:31 CDT Ariana Ozuna Robina, DO, FACP CPT-77075 Ofc Vst, Est Level IV 14:59:36 CDT Ariana Ozuna Robina, DO, FACP CPT-48428 Ofc Vst, Est Level V 12:29:58 CDT Ariana Ozuna Quarles, DO, FACP CPT-69437 Ofc Vst, Est Level V 11:22:18 CDT Ariana Ozuna Quarles, DO, FACP CPT-53210 Ofc Vst, New Level IV 19:50:46 CDT Ariana Ozuna Quarles, DO, FACP Procedures Code Procedure Name Date Entry Date Standard Description CPT-45494 Preventive, Est, (40-64) 16:45:15 CUSTOMER COUNTER REPRESENTATIVE CPT-10466 Preventive, Est, (40-64) 20:21:37 CUSTOMER COUNTER REPRESENTATIVE CPT-99218 Preventive, Est, (40-64) 16:40:52 CDT
--- OUTSIDE RECORDS SUMMARY | 2018-03-12 08:56 | XMS REPORT | Clinical Summary ---
Author Author jossy wesley [place], [place] [address] Phone Unavailable Allergies, Adverse Reactions, Alerts Allergy Name Reaction Description Start Date Severity Status Provider No Known Allergies Bree Yanez Conditions or Problems Problem Name Problem Code Onset Date Status Entry Date Provider Comment Standard Description Annotate HYPERCHOLESTEROLEMIA 272.0 Active Ariana Quarles PURE HYPERCHOLESTEROLEMIA DIABETES MELLITUS, NONINSULIN DEPENDENT (NIDDM) 250.02 Active Ariana Quarles DIABETES MELLITUS WITHOUT MENTION OF COMPLICATION, TYPE II OR UNSPECIFIED TYPE, UNCONTROLLED HYPERTENSION 401.1 Active Ariana Quarles ESSENTIAL HYPERTENSION, BENIGN HYPERTRIGLYCERIDEMIA 272.1 Active Ariana Quarles PURE HYPERGLYCERIDEMIA HYPOTHYROIDISM, PRIMARY 244.9 Active Ariana Quarles UNSPECIFIED HYPOTHYROIDISM 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 Ariana Quarles PROTEINURIA DIABETIC RETINOPATHY 250.50 Active Ariana Quarles DIABETES WITH OPHTHALMIC MANIFESTATIONS, TYPE II OR UNSPECIFIED TYPE , NOT STATED UNCONTROLLED ANEMIA, IRON DEFICIENCY NEC 280.8 Active Ariana Quarles OTHER SPECIFIED IRON DEFICIENCY ANEMIAS Medication List Medication Instructions Start Date Stop Date Generic Name NDC Status Provider Patient Instruction PEN NEEDLES 5/16" 31G X 8 MM MISC as directed Dx: diabetes INSULIN PEN NEEDLE 09542265324 Active Ariana Quarles LANTUS SOLOSTAR 100 UNIT/ML SOLN 17 units SQ QHS INSULIN GLARGINE 25712364674 Active Chitra Newman LOTENSIN 10 MG TAB 1 PO daily to protect kidneys and eyes BE[place]PR[place] HCL 83421969719 Active Chitra Newman METFORMIN HCL 500 MG TABS 2 PO BID METFORMIN HCL 99603699874 Active Chitra Newman LIPITOR 40 MG TABS 1 PO daily ATORVASTATIN CALCIUM 28310698417 Active Chitra G[place]is DIALYVITE VITAMIN D 5000 CAPS 1 po daily CHOLECALCIFEROL CAPS 74799513854 Active Ariana Quarles FERREX 150 150 MG CAPS 1 PO daily POLYSACCHARIDE IRON COMPLEX 85178614598 Active Chitra Trent FELODIPINE ER 5 MG [id number] 1 PO daily FELODIPINE 57767596581 Active Ariana Quarles SYNTHROID 125 MCG TABS 1 PO daily LEVOTHYROXINE SODIUM 37513563072 Active Ariana Quarles Immunizations Vaccine Administration Date Value Standard Description Influenza vaccine DONE influenza virus vaccine, unspecified formulation Influenza vaccine Done influenza virus vaccine, unspecified formulation Vital Signs Date Name Value Unit Range Description blood pressure, diastolic 84 mm[Hg] BP santana blood pressure, systolic 164 mm[Hg] BP sys pulse rate E&M 80 /min Heart rate respiratory rate E&M 12 /min Resp rate weight E&M 279 [lb_av] Weight Measured blood pressure, diastolic 70 mm[Hg] BP santana blood pressure, systolic 130 mm[Hg] BP sys pulse rate E&M 90 /min Heart rate respiratory rate E&M 14 /min Resp rate temperature E&M 98.6 [degF] Body temperature weight E&M 275 [lb_av] Weight Measured blood pressure, diastolic 90 mm[Hg] BP santana blood pressure, systolic 160 mm[Hg] BP sys pulse rate E&M 80 /min Heart rate respiratory rate E&M 16 /min Resp rate weight E&M 277 [lb_av] Weight Measured Diagnostic Results Date Name Value Unit Range Description Clinical Lists Update: CBC,CMP,Chol,Trig,Ferritin,TSH,Free T4,HgA1c - Chemistry albumin, serum 3.9 g/dL thyroid stimulating hormone, serum 7.37 u[iU]/mL alkaline phosphatase, serum 84 U/L glucose, plasma fasting 132 mg/dL urea nitrogen, blood 20 mg/dL calcium, serum 9.5 mg/dL anion gap, serum 15 chloride, serum 100 mmol/L sodium, serum 137 mmol/L cholesterol, serum 163 mg/dL triglyceride, serum, fasting 202 mg/dL carbon dioxide, venous blood 26.0 mmol/L bilirubin, serum, total 0.4 mg/dL creatinine, serum 0.8 mg/dL alanine aminotransferase (SGPT), serum 14 U/L ferritin, serum 73.9 ng/mL aspartate aminotransferase (SGOT), serum 13 U/L thyroxine, serum, free 1.08 ng/dL protein, total, serum 6.4 g/dL hemoglobin A1C, blood, as % of total hemoglobin 6.0 % potassium, serum 4.3 mmol/L Estimated Glomerular Filtration Rate (calc) 79 mL/min/1.73m2 Clinical Lists Update: CBC,CMP,Chol,Trig,Ferritin,TSH,Free T4,HgA1c - Hematology hemoglobin, blood 11.1 g/dL hematocrit, blood 37 % platelet count 312 10*3/mm3 erythrocyte (RBC) count 4.06 10*6/mm3 leukocyte count, blood 6.9 10*3/mm3 mean corpuscular volume, RBC 90 fL red blood cell distribution width 17.0 % Clinical Lists Update: CMP,FLP,TSH,Free T4,HgA1c - Chemistry aspartate aminotransferase (SGOT), serum 14 U/L thyroid stimulating hormone, serum 2.88 u[iU]/mL alanine aminotransferase (SGPT), serum 14 U/L carbon dioxide, venous blood 23.0 mmol/L bilirubin, serum, total 0.4 mg/dL cholesterol, serum 152 mg/dL triglyceride, serum, fasting 177 mg/dL chloride, serum 105 mmol/L sodium, serum 139 mmol/L calcium, serum 9.2 mg/dL anion gap, serum 16 urea nitrogen, blood 22 mg/dL cholesterol/HDL ratio, serum 3.9 alkaline phosphatase, serum 73 U/L glucose, plasma fasting 136 mg/dL albumin, serum 4.0 g/dL Estimated Glomerular Filtration Rate (calc) 75 mL/min/1.73m2 protein, total, serum 6.4 g/dL thyroxine, serum, free 1.14 ng/dL HDL cholesterol, serum 39.0 mg/dL potassium, serum 4.8 mmol/L hemoglobin A1C, blood, as % of total hemoglobin 5.8 % LDL cholesterol, serum 78 mg/dL creatinine, serum 0.8 mg/dL Office Visit: Dr Quarles's Check Up: Established Patient Visit - Chemistry Estimated Glomerular Filtration Rate (calc) 86 mL/min/1.73m2 glucose, plasma fasting 120 mg/dL cholesterol/HDL ratio, serum 3.6 anion gap, serum 12 sodium, serum [...] hematocrit, blood 35 % Office Visit: Dr Quarles'josefina Check Up: Established Patient Visit - Urinalysis microalbumin, urine, semiquantitative 38.3 mg/dL
--- OUTSIDE RECORDS SUMMARY | 2018-03-12 08:56 | XMS REPORT | Clinical Summary ---
Author Author User, [employer] Organization Ariana Quarles DO, FACP Address Unknown [...] CAPS 1 PO bid POLYSACCHARIDE IRON COMPLEX 83760255488 Active Chitra Newman SYNTHROID 125 MCG TABS 1 PO daily LEVOTHYROXINE SODIUM 49233007018 Active Chitra Newman FELODIPINE ER 5 MG [id number] 1 PO daily FELODIPINE 05003726029 Active Chitra Newman HUMALOG KWIKPEN 100 UNIT/ML SOLN 5 units SQ before breakfast 2012 INSULIN LISPRO (HUMAN) 74168365365 No Longer Active Ariana Quarles DIALYVITE VITAMIN D 5000 CAPS 1 po daily CHOLECALCIFEROL CAPS 49036490638 Active Ariana Quarles LIPITOR 40 MG TABS 1 PO daily ATORVASTATIN CALCIUM 51673877005 Active Chitra Newman VITAMIN D (ERGOCALCIFEROL) 26299 UNIT CAPS 1 PO daily ERGOCALCIFEROL 40733937301 No Longer Active Ariana Quarles FERROUS SULFATE CR 325 MG TBCR 1 PO daily FERROUS SULFATE No Longer Active Ariana Quarles NORVASC 2.5 MG TAB 1 PO daily AMLODIPINE BESYLATE 30767327135 No Longer Active Chitra Newman VITAMIN D 2000 UNIT TABS 2 PO daily CHOLECALCIFEROL 82538646151 No Longer Active Ariana Quarles LOVASTATIN 40 MG TABS 1 PO daily LOVASTATIN 54614555422 No Longer Active Chitra Newman METFORMIN HCL 500 MG TABS 2 PO BID METFORMIN HCL 05584265896 Active Chitra Newman LOTENSIN 10 MG TAB 1 PO daily to protect kidneys and eyes BE[place]PR[place] HCL 93137424987 Active Chitra Newman LANTUS SOLOSTAR 100 UNIT/ML SOLN 17 units SQ QHS INSULIN GLARGINE 72576820235 Active Chitra Newman METANX TABS 1 po BID [id number] TABS 22722261058 No Longer Active Ariana Quarles PEN NEEDLES 08/28" 31G X 8 MM MISC as directed Dx: diabetes INSULIN PEN NEEDLE 40027733553 Active Ariana Quarles FELODIPINE 2.5 MG TB24 1 PO daily for BP FELODIPINE 31425395280 No Longer Active Ariana Quarles Immunizations Vaccine [...] mg/dL Encounters Code Encounter Date Provider Facility CPT-33508 Ofc Vst, Est Level IV 16:50:06 CDT Ariana Siria Quarles, DO, FACP CPT-17447 Ofc Vst, Est Level IV 20:29:48 CDT Ariana Siria Quarles, DO, FACP CPT-69108 Ofc Vst, Est Level IV 16:28:57 CDT Ariana Siria Quarles, DO, FACP CPT-96958 Ofc Vst, Est Level IV 14:47:38 CDT Ariana Siria Quarles, DO, FACP CPT-39447 Ofc Vst, Est Level III 13:43:09 CARDIAC REHAB NURSE Ariana Quarles, DO, FACP CPT-52562 Ofc Vst, Est Level IV 13:45:33 CDT Ariana Quarles, DO, FACP CPT-37593 Ofc Vst, Est Level IV 10:19:14 CDT Arianamarcus Quarles, DO, FACP CPT-51948 Ofc Vst, Est Level IV 10:52:40 CARDIAC REHAB NURSE Ariana Quarles, DO, FACP CPT-70911 Ofc Vst, Est Level IV 15:52:35 CDT Ariana Quarles, DO, FACP CPT-34677 Ofc Vst, Est Level IV 14:06:04 CDT Arianamarcus Quarles, DO, FACP CPT-94395 Ofc Vst, Est Level IV 10:32:03 CARDIAC REHAB NURSE Ariana Ozuna Quarles, DO, FACP CPT-59898 Ofc Vst, Est Level IV 16:32:36 CDT Ariana [facility] OFFICE CPT-84908 Ofc Vst, Est Level IV 09:43:53 CDT Ariana Ozuna Quarles, DO, FACP CPT-51257 Ofc Vst, Est Level IV 10:06:42 CARDIAC REHAB NURSE Ariana Ozuna Quarles, DO, FACP CPT-35910 Ofc Vst, Est Level V 09:50:31 CDT Ariana Ozuna Robina, DO, FACP CPT-12098 Ofc Vst, Est Level IV 14:59:36 CDT Ariana Ozuna Robina, DO, FACP CPT-09823 Ofc Vst, Est Level V 12:29:58 CDT Ariana Ozuna Quarles, DO, FACP CPT-87500 Ofc Vst, Est Level V 11:22:18 CDT Ariana Ozuna Quarles, DO, FACP CPT-11314 Ofc Vst, New Level IV 19:50:46 CDT Ariana Ozuna Quarles, DO, FACP Procedures Code Procedure Name Date Entry Date Standard Description CPT-46784 Preventive, Est, (40-64) 16:45:15 CARDIAC REHAB NURSE CPT-83745 Preventive, Est, (40-64) 20:21:37 CARDIAC REHAB NURSE CPT-64798 Preventive, Est, (40-64) 16:40:52 CDT
--- OUTSIDE RECORDS SUMMARY | 2018-03-12 08:56 | XMS REPORT | Clinical Summary ---
Author Author User, [employer] Organization Ariana Quarles DO, FACP Address Unknown [...] ABDOMINAL PAIN, RIGHT UPPER QUADRANT 789.01 Resolved rAiana Quarles Abdominal pain, right upper quadrant ANEMIA [...] CAPS 1 PO bid POLYSACCHARIDE IRON COMPLEX 39892444271 Active Chitra Newman SYNTHROID 125 MCG TABS 1 PO daily LEVOTHYROXINE SODIUM 46626331272 Active Chitra Newman FELODIPINE ER 5 MG [id number] 1 PO daily FELODIPINE 13301279454 Active Chitra Newman HUMALOG KWIKPEN 100 UNIT/ML SOLN 5 units SQ before breakfast 2012 INSULIN LISPRO (HUMAN) 43611700958 No Longer Active Ariana Quarles DIALYVITE VITAMIN D 5000 CAPS 1 po daily CHOLECALCIFEROL CAPS 79091632516 Active Ariana Quarles LIPITOR 40 MG TABS 1 PO daily ATORVASTATIN CALCIUM 32793777722 Active Chitra Newman VITAMIN D (ERGOCALCIFEROL) 31030 UNIT CAPS 1 PO daily ERGOCALCIFEROL 01081948806 No Longer Active Ariana Quarles FERROUS SULFATE CR 325 MG TBCR 1 PO daily FERROUS SULFATE No Longer Active Ariana Quarles NORVASC 2.5 MG TAB 1 PO daily AMLODIPINE BESYLATE 54526279065 No Longer Active Chitra Newman VITAMIN D 2000 UNIT TABS 2 PO daily CHOLECALCIFEROL 90329013681 No Longer Active Ariana Quarles LOVASTATIN 40 MG TABS 1 PO daily LOVASTATIN 38943695904 No Longer Active Chitra Newman METFORMIN HCL 500 MG TABS 2 PO BID METFORMIN HCL 03275848141 Active Chitra Newman LOTENSIN 10 MG TAB 1 PO daily to protect kidneys and eyes BENAZEPRIL HCL 02586262693 Active Chitra Newman LANTUS SOLOSTAR 100 UNIT/ML SOLN 17 units SQ QHS INSULIN GLARGINE 70269486283 Active Chitra Newman METANX TABS 1 po BID [id number] TABS 57601184667 No Longer Active Ariana Quarles PEN NEEDLES 08/28" 31G X 8 MM MISC as directed Dx: diabetes INSULIN PEN NEEDLE 19905869729 Active Ariana Quarles FELODIPINE 2.5 MG TB24 1 PO daily for BP FELODIPINE 17798201061 No Longer Active Ariana Quarles Immunizations Vaccine [...] mg/dL Encounters Code Encounter Date Provider Facility CPT-64308 Ofc Vst, Est Level IV 16:50:06 CDT Ariana Siria Quarles, DO, FACP CPT-77720 Ofc Vst, Est Level IV 20:29:48 CDT Ariana Siria Quarles, DO, FACP CPT-41356 Ofc Vst, Est Level IV 16:28:57 CDT Ariana Siria Quarles, DO, FACP CPT-11724 Ofc Vst, Est Level IV 14:47:38 CDT Ariana Siria Quarles, DO, FACP CPT-22230 Ofc Vst, Est Level III 13:43:09 NURSING SERVICE DIRECTOR Ariana Quarles, DO, FACP CPT-37532 Ofc Vst, Est Level IV 13:45:33 CDT Ariana Quarles, DO, FACP CPT-45970 Ofc Vst, Est Level IV 10:19:14 CDT Arianamarcus Quarles, DO, FACP CPT-65326 Ofc Vst, Est Level IV 10:52:40 NURSING SERVICE DIRECTOR Ariana Quarles, DO, FACP CPT-24236 Ofc Vst, Est Level IV 15:52:35 CDT Ariana Quarles, DO, FACP CPT-90937 Ofc Vst, Est Level IV 14:06:04 CDT Arianamarcus Quarles, DO, FACP CPT-36835 Ofc Vst, Est Level IV 10:32:03 NURSING SERVICE DIRECTOR Ariana Ozuna Quarles, DO, FACP CPT-93927 Ofc Vst, Est Level IV 16:32:36 CDT Ariana ARTHUR OFFICE CPT-63965 Ofc Vst, Est Level IV 09:43:53 CDT Ariana Ozuna Quarles, DO, FACP CPT-57396 Ofc Vst, Est Level IV 10:06:42 NURSING SERVICE DIRECTOR Ariana Ozuna Quarles, DO, FACP CPT-42575 Ofc Vst, Est Level V 09:50:31 CDT Ariana Ozuna Robina, DO, FACP CPT-48370 Ofc Vst, Est Level IV 14:59:36 CDT Ariana Ozuna Robina, DO, FACP CPT-23923 Ofc Vst, Est Level V 12:29:58 CDT Ariana Ozuna Quarles, DO, FACP CPT-00148 Ofc Vst, Est Level V 11:22:18 CDT Ariana Ozuna Quarles, DO, FACP CPT-44861 Ofc Vst, New Level IV 19:50:46 CDT Ariana Ozuna Quarles, DO, FACP Procedures Code Procedure Name Date Entry Date Standard Description CPT-20116 Preventive, Est, (40-64) 16:45:15 NURSING SERVICE DIRECTOR CPT-88314 Preventive, Est, (40-64) 20:21:37 NURSING SERVICE DIRECTOR CPT-03031 Preventive, Est, (40-64) 16:40:52 CDT
--- OUTSIDE RECORDS SUMMARY | 2018-03-12 08:57 | XMS REPORT | Clinical Summary ---
Author Author jossy wesley DO, [place] [id number] Phone Unavailable Allergies, Adverse Reactions, Alerts Allergy [...] as directed Dx: diabetes INSULIN PEN NEEDLE 63259809030 Active Ariana Quarles LANTUS SOLOSTAR 100 UNIT/ML SOLN 17 units SQ QHS INSULIN GLARGINE 35840050619 Active Chitra Newman LOTENSIN 10 MG TAB 1 PO daily to protect kidneys and eyes BENAZEPRIL HCL 47665729082 Active Chitra Newman METFORMIN HCL 500 MG TABS 2 PO BID METFORMIN HCL 27049683082 Active Chitra Newman LIPITOR 40 MG TABS 1 PO daily ATORVASTATIN CALCIUM 51326554668 Active Chitra Gipsontis DIALYVITE VITAMIN D 5000 CAPS 1 po daily CHOLECALCIFEROL CAPS 97665908252 Active Ariana Quarles FERREX 150 150 MG CAPS 1 PO daily POLYSACCHARIDE IRON COMPLEX 38821810569 Active Chitra Trent FELODIPINE ER 5 MG [id number] 1 PO daily FELODIPINE 88864147014 Active Ariana Quarles SYNTHROID 125 MCG TABS 1 PO daily LEVOTHYROXINE SODIUM 54708763655 Active Ariana Quarles Immunizations Vaccine Administration Date [...]
--- OUTSIDE RECORDS SUMMARY | 2018-03-12 08:57 | XMS REPORT | Clinical Summary ---
Author Author jossy wesley DO, [place] [address] Phone Unavailable Allergies, Adverse Reactions, Alerts Allergy [...] OR UNSPECIFIED TYPE , NOT STATED UNCONTROLLED ANEMIA NOS 285.9 Active Ariana Quarles UNSPECIFIED ANEMIA HEALTH SCREENING V70.0 Active Ariana Quarles ROUTINE GENERAL MEDICAL EXAMINATION AT HEALTH CARE FACILITY Medication List Medication Instructions Start Date Stop Date Generic Name NDC Status Provider Patient Instruction PEN NEEDLES /16" 31G X 8 MM MISC as directed Dx: diabetes INSULIN PEN NEEDLE 92547312678 Active Chitra Newman LANTUS SOLOSTAR 100 UNIT/ML SOLN 17 units SQ Q INSULIN GLARGINE 60487221262 Active Chitra Newman LOTENSIN 10 MG TAB 1 PO daily to protect kidneys and eyes BENAZEPRIL HCL 58339714933 Active Chitra Newman METFORMIN HCL 500 MG TABS 2 PO BID METFORMIN HCL 48616039492 Active Chitra Newman FELODIPINE 2.5 MG [id number] 1 po daily FELODIPINE 26307311611 Active Arianamarcus Quarles SYNTHROID 0.112 MG TAB 1 PO daily LEVOTHYROXINE SODIUM 84872080958 Active Chitra Newman FERROUS SULFATE CR 325 MG TBCR 1 PO daily FERROUS SULFATE Active Ariana Quarles LIPITOR 40 MG TABS 1 PO daily ATORVASTATIN CALCIUM 38336783765 Active Chitra Newman DIALYVITE VITAMIN D 5000 CAPS 1 po daily CHOLECALCIFEROL CAPS 60816287582 Active Ariana Quarles Immunizations Vaccine Administration Date Value Standard Description Influenza vaccine DONE influenza virus vaccine, unspecified formulation Influenza vaccine Done influenza virus vaccine, unspecified formulation Vital Signs Date Name Value Unit Range Description blood pressure, diastolic 90 mm[Hg] BP santana blood pressure, systolic 160 mm[Hg] BP sys pulse rate E&M 80 /min Heart rate respiratory rate E&M 16 /min Respiratory rate weight E&M 277 [lb_av] Weight Measured blood pressure, diastolic 70 mm[Hg] BP santana blood pressure, systolic 110 mm[Hg] BP sys pulse rate E&M 84 /min Heart rate respiratory rate E&M 14 /min Respiratory rate temperature E&M 98.6 [degF] Bdy temp weight E&M 270 [lb_av] Weight Measured Diagnostic Results Date Name Value Unit Range Description Clinical Lists Update: CMP,FLP,TSH,Free T4,HgA1c - Chemistry Estimated Glomerular Filtration Rate (calc) 75 mL/min/1.73m2 triglyceride, serum, fasting 177 mg/dL potassium, serum 4.8 mmol/L urea nitrogen, blood 22 mg/dL sodium, serum 139 mmol/L calcium, serum 9.2 mg/dL protein, total, serum 6.4 g/dL chloride, serum 105 mmol/L glucose, plasma fasting 136 mg/dL cholesterol, serum 152 mg/dL aspartate aminotransferase (SGOT), serum 14 U/L carbon dioxide, venous blood 23.0 mmol/L anion gap, serum 16 creatinine, serum 0.8 mg/dL alanine aminotransferase (SGPT), serum 14 U/L thyroxine, serum, free 1.14 ng/dL albumin, serum 4.0 g/dL HDL cholesterol, serum 39.0 mg/dL bilirubin, serum, total 0.4 mg/dL hemoglobin A1C, blood, as % of total hemoglobin 5.8 % cholesterol/HDL ratio, serum 3.9 thyroid stimulating hormone, serum 2.88 u[iU]/mL LDL cholesterol, serum 78 mg/dL alkaline phosphatase, serum 73 U/L Office Visit: Dr Quarles's Check Up: Established Patient Visit - Chemistry albumin, serum 3.9 g/dL alkaline phosphatase, serum 85 U/L urea nitrogen, blood 16 mg/dL calcium, serum 9.0 mg/dL chloride, serum 110 mmol/L cholesterol, serum 144 mg/dL carbon dioxide, venous blood 23.0 mmol/L creatinine, serum 0.6 mg/dL thyroxine, serum, free 1.03 ng/dL HDL cholesterol, serum 38.0 mg/dL hemoglobin A1C, blood, as % of total hemoglobin 5.7 % thyroid stimulating hormone, serum 3.08 u[iU]/mL LDL cholesterol, serum 72 mg/dL potassium, serum 4.6 mmol/L protein, total, serum 6.4 g/dL aspartate aminotransferase (SGOT), serum 14 U/L alanine aminotransferase (SGPT), serum 14 U/L bilirubin, serum, total 0.4 mg/dL triglyceride, serum, fasting 172 mg/dL sodium, serum 142 mmol/L anion gap, serum 14 cholesterol/HDL ratio, serum 3.8 glucose, plasma fasting 99 mg/dL Office Visit: Dr Quarles's Check Up: Established Patient Visit - Hematology red blood cell distribution width 17.2 % mean corpuscular volume, RBC 89 fL leukocyte count, blood 5.8 10*3/mm3 erythrocyte (RBC) count 4.24 10*6/mm3 platelet count 244 10*3/mm3 hemoglobin, blood 11.5 g/dL hematocrit, blood 38 %
--- OUTSIDE RECORDS SUMMARY | 2018-03-12 08:57 | XMS REPORT | Clinical Summary ---
Author Author jossy wesley DO, [place] [address] Phone Unavailable Allergies, Adverse Reactions, Alerts Allergy [...] NOS 285.9 Active Ariana Quarles UNSPECIFIED ANEMIA Medication List Medication Instructions Start Date Stop Date Generic Name NDC Status Provider Patient Instruction PEN NEEDLES 08/28" 31G X 8 MM MISC as directed Dx: diabetes INSULIN PEN NEEDLE 21750319161 Active Chitra Newman LANTUS SOLOSTAR 100 UNIT/ML SOLN 17 units SQ QHS INSULIN GLARGINE 74013947247 Active Chitra Newman LOTENSIN 10 MG TAB 1 PO daily to protect kidneys and eyes BENAZEPRIL HCL 54480838294 Active Chitra Trent METFORMIN HCL 500 MG TABS 2 PO BID METFORMIN HCL 26113043859 Active Chitra Gipsontis FELODIPINE 2.5 MG [id number] 1 po daily FELODIPINE 78446563024 Active Ariana Quarles SYNTHROID 0.112 MG TAB 1 PO daily LEVOTHYROXINE SODIUM 38092407525 Active Chitra Trent LIPITOR 40 MG TABS 1 PO daily ATORVASTATIN CALCIUM 33790879916 Active Chitragene Newman DIALYVITE VITAMIN D 5000 CAPS 1 po daily CHOLECALCIFEROL CAPS 79364789291 Active Ariana Quarles FERREX 150 150 MG CAPS 1 PO daily POLYSACCHARIDE IRON COMPLEX 79152266403 Active Ariana Quarles Immunizations Vaccine Administration Date Value Standard Description Influenza vaccine DONE influenza virus vaccine, unspecified formulation Influenza vaccine Done influenza virus vaccine, unspecified formulation Vital Signs Date Name Value Unit Range Description blood pressure, diastolic 70 mm[Hg] BP santana blood pressure, systolic 130 mm[Hg] BP sys pulse rate E&M 90 /min Heart rate respiratory rate E&M 14 /min Respiratory rate temperature E&M 98.6 [degF] Bdy temp weight E&M 275 [lb_av] Weight Measured blood [...] Estimated Glomerular Filtration Rate (calc) 75 mL/min/1.73m2 albumin, serum 4.0 g/dL cholesterol/HDL ratio, serum 3.9 anion gap, serum 16 sodium, serum 139 mmol/L triglyceride, serum, fasting 177 mg/dL bilirubin, serum, total 0.4 mg/dL alanine aminotransferase (SGPT), serum 14 U/L aspartate aminotransferase (SGOT), serum 14 U/L protein, total, serum 6.4 g/dL potassium, serum 4.8 mmol/L LDL cholesterol, serum 78 mg/dL thyroid stimulating hormone, serum 2.88 u[iU]/mL hemoglobin A1C, blood, as % of total hemoglobin 5.8 % HDL cholesterol, serum 39.0 mg/dL thyroxine, serum, free 1.14 ng/dL creatinine, serum 0.8 mg/dL carbon dioxide, venous blood 23.0 mmol/L cholesterol, serum 152 mg/dL chloride, serum 105 mmol/L calcium, serum 9.2 mg/dL urea nitrogen, blood 22 mg/dL alkaline phosphatase, serum 73 U/L glucose, plasma fasting 136 mg/dL Office Visit: Dr Quarles's Check Up: Established Patient Visit - Chemistry Estimated Glomerular Filtration Rate (calc) 86 mL/min/1.73m2 glucose, plasma fasting 99 mg/dL glucose, plasma fasting 120 mg/dL cholesterol/HDL ratio, serum 3.8 cholesterol/HDL ratio, serum 3.6 anion gap, serum 14 anion gap, serum 12 sodium, serum 142 mmol/L sodium, serum 140 mmol/L triglyceride, serum, fasting 172 mg/dL triglyceride, serum, fasting 131 mg/dL bilirubin, serum, total 0.4 mg/dL bilirubin, serum, total 0.4 mg/dL alanine aminotransferase (SGPT), serum 14 U/L alanine aminotransferase (SGPT), serum 13 U/L aspartate aminotransferase (SGOT), serum 14 U/L aspartate aminotransferase (SGOT), serum 13 U/L protein, total, serum 6.4 g/dL protein, total, serum 5.9 g/dL potassium, serum 4.6 mmol/L potassium, serum 4.3 mmol/L LDL cholesterol, serum 72 mg/dL LDL cholesterol, serum 80 mg/dL thyroid stimulating hormone, serum 3.08 u[iU]/mL thyroid stimulating hormone, serum 3.80 u[iU]/mL hemoglobin A1C, blood, as % of total hemoglobin 5.7 % hemoglobin A1C, blood, as % of total hemoglobin 5.9 % HDL cholesterol, serum 38.0 mg/dL HDL cholesterol, serum 41.0 mg/dL thyroxine, serum, free 1.03 ng/dL thyroxine, serum, free 1.13 ng/dL ferritin, serum 68.9 ng/mL creatinine, serum 0.6 mg/dL creatinine, serum 0.7 mg/dL carbon dioxide, venous blood 23.0 mmol/L carbon dioxide, venous blood 28.0 mmol/L cholesterol, serum 144 mg/dL cholesterol, serum 147 mg/dL chloride, serum 110 mmol/L chloride, serum 104 mmol/L calcium, serum 9.0 mg/dL calcium, serum 9.5 mg/dL urea nitrogen, blood 16 mg/dL urea nitrogen, blood 14 mg/dL alkaline phosphatase, serum 85 U/L alkaline phosphatase, serum 65 U/L albumin, serum 3.9 g/dL albumin, serum 4.0 g/dL Office Visit: Dr Quarles's Check Up: Established Patient Visit - Hematology red blood cell distribution width 17.2 % red blood cell distribution width 17.6 % mean corpuscular volume, RBC 89 fL mean corpuscular volume, RBC 90 fL leukocyte count, blood 5.8 10*3/mm3 leukocyte count, blood 5.5 10*3/mm3 erythrocyte (RBC) count 4.24 10*6/mm3 erythrocyte (RBC) count 3.87 10*6/mm3 platelet count 244 10*3/mm3 platelet count 271 10*3/mm3 hemoglobin, blood 11.5 g/dL hemoglobin, blood 10.5 g/dL hematocrit, blood 38 % hematocrit, blood 35 % Office Visit: Dr Quarles's Check Up: Established Patient Visit - Urinalysis microalbumin, urine, semiquantitative 38.3 mg/dL
--- OUTSIDE RECORDS SUMMARY | 2018-03-12 08:57 | XMS REPORT | Continuity of Care Document ---
Author Author [facility] Organization [facility] Address Unknown Phone Unavailable Allergies Active Description Code Type Severity Reaction Onset Reported/Identified Relationship to Patient Clinical Status Yes No Known Drug Allergies [id number] Drug Allergy Mild N/A 08/06/2008 Medications There is no data. Problems Date Dx Coded Attending Type Code Diagnosis Diagnosed By 04/12/2015 BHAVYA BABB DOI Ot Z12.31 04/28/2015 HOLLEY SMITH SHANTEL Ot Z12.31 02/08/2017 HOLLEY SMITH SHANTEL Ot Z12.31 ENCNTR SCREEN MAMMOGRAM FOR MALIGNANT NE 06/11/2017 HOLLEY SMITH SHANTEL Ot Z12.31 ENCNTR SCREEN MAMMOGRAM FOR MALIGNANT NE 06/12/2017 HOLLEY SMITH SHANTEL Ot Z12.31 ENCNTR SCREEN MAMMOGRAM FOR MALIGNANT NE 03/05/2018 HOLLEY SMITH SHANTEL Ot Z12.31 ENCNTR SCREEN MAMMOGRAM FOR MALIGNANT NE 03/05/2018 HOLLEY SMITH SHANTEL Ot Z12.31 ENCNTR SCREEN MAMMOGRAM FOR MALIGNANT NE Procedures There is no data. Results There is no data. Encounters ACCT No. Visit Date/Time Discharge Status Pt. Type Provider Facility Loc./Unit Complaint [id number] 06/11/2017 13:31:00 06/11/2017 23:59:59 CLS Outpatient BABB DO, SHANTEL [facility] RAD SCREENING [id number] 02/13/2017 15:30:00 02/13/2017 23:59:59 CLS Preadmit BABB DO, SHANTEL [facility] RAD Z12.31 [id number] 02/16/2015 09:22:00 02/16/2015 23:59:59 CLS Outpatient BABB DO, SHANTEL [facility] RAD SCREENING [id number] 03/12/2018 12:00:00 PEN Preadmit JARRED SHARP MD [facility] CATARACT LEFT EYE
[2018-03-12] MEDS ORDERED: MOXIFLOXACIN OPHTH SOLN 5 MG/ML 0.3 ML SYRINGE OP ONE (09:15)
[2018-03-12] MEDS ORDERED: LIDOCAINE PF 1% 2 ML AMP IR PRN (09:15)
[2018-03-12] MEDS ORDERED: TIMOLOL MALEATE 0.5% 5 ML (TIMOPTIC) BTL OU PRN (09:15)
[2018-03-12] MEDS ORDERED: POVIDONE (BETADINE) OPHTH SOLN 5% 30 ML OP ONE (09:15)
[2018-03-12 09:19] VITALS: BP 148/68
[2018-03-12] MEDS: TETRACAINE 0.5% OPHTH SOLN 4 ML BTL (SINGLE DOSE ONLY) OU PRN ×4 (09:23→09:52)
[2018-03-12] MEDS: CYCLOPENTOLATE 1% (CYCLOGYL) 2 ML DROPS OP SCH ×3 (09:34→09:52)
[2018-03-12] MEDS: PHENYLEPHRINE 10% OPHTH (NEO-SYN) 5 ML BTL OU SCH ×3 (09:34→09:52)
[2018-03-12] MEDS ORDERED: MIDAZOLAM 2 MG/2 ML (VERSED) VIAL ONE (10:03)
[2018-03-12] MEDS ORDERED: acetaZOLAMIDE ER 500 MG CAP (DIAMOX SEQUELS) PO ONE (10:30)
--- NOTE | 2018-03-12 10:37 | Ophthalmologist Pre-Op Note ---
Pre-Operative Progress Note H&P Reviewed The H&P was reviewed, patient examined and no changes noted. Date H&P Reviewed: Mar 12, 2018 Time H&P Reviewed: 10:15 Pre-Op Dx Cataract, Left Eye JARRED SHARP MD Mar 12, 2018 10:37
--- NOTE | 2018-03-12 10:37 | Ophthalmology Operative Report ---
Cataract removal/placement IOL PREOPERATIVE DIAGNOSIS: Cataract Left Eye POSTOPERATIVE DIAGNOSIS: Cataract Left Eye PROCEDURE: Cataract removal and placement of posterior chamber implant, left eye SURGEON: Vimal Sharp ANESTHESIA: Topical with sedation COMPLICATIONS: None ESTIMATED BLOOD LOSS: Minimal DESCRIPTION OF PROCEDURE: After proper informed consent was obtained, the patient, a 67 female, was taken to the Operating Room and the left eye was anesthetized with tetracaine. The left eye was then prepped and draped in the usual manner. A wire lid speculum was placed. A paracentesis was made at the left hand position. Preservative free lidocaine was injected into the anterior chamber followed by viscoelastic. A clear corneal incision was made in the temporal position. A capsulorrhexis was preformed and the central nuclear and cortical material were removed. The posterior capsule was polished and an Shahriar [id number] 27.0was placed into the capsular bag. The residual viscoelastic was aspirated and balanced saline solution was injected into the anterior chamber. Moxifloxacin was injected into the anterior chamber. The wound was checked and found to be water tight. The patient tolerated the procedure well without complications. VIMAL SHARP MD Mar 12, 2018 10:37
[2018-03-12 10:47] VITALS: BP 143/67
--- NOTE | 2018-03-12 10:48 | Anesthesia-General Post-Op ---
MAC Patient Condition Mental Status/LOC: Same as Preop Cardiovascular: Satisfactory Nausea/Vomiting: Absent Respiratory: Satisfactory Pain: Controlled Complications: Absent Post Op Complications Complications None Follow Up Care/Instructions Patient Instructions None needed. Anesthesiology Discharge Order Discharge Order Patient is doing well, no complaints, stable vital signs, no apparent adverse anesthesia problems. No complications reported per nursing. JACKSON DELONG CRNA Mar 12, 2018 10:48
== END 2018-03-12 10:47 | disposition home or self-care (01) ==
LOC: SDC 08:49
PROVIDERS: ATTEND Specialist
DX: H25.12 Age-related nuclear cataract, left eye (principal); I10 Essential (primary) hypertension; E11.9 Type 2 diabetes mellitus without complications; E78.00 Pure hypercholesterolemia, unspecified; E66.01 Morbid (severe) obesity due to excess calories; Z87.891 Personal history of nicotine dependence; Z79.4 Long term (current) use of insulin; Z79.899 Other long term (current) drug therapy; Z68.41 Body mass index [BMI] 40.0-44.9, adult
CPT/HCPCS: 82962

== ENCOUNTER 2018-03-17 05:42 | Outpatient (CLI) | payer MEDICARE | END 2018-03-17 12:54 | disposition home or self-care (01) | LOC: PREOP 05:42 | PROVIDERS: ATTEND Specialist | DX: Z01.818 Encounter for other preprocedural examination (principal) ==

== ENCOUNTER 2018-03-19 09:55 | Day surgery (SDC) | payer MEDICARE ==
[~2018-03-19] VITALS: Ht 160 cm; Wt 113.4 kg
[2018-03-19 10:00] VITALS: BP 172/89
[2018-03-19] MEDS ORDERED: POVIDONE (BETADINE) OPHTH SOLN 5% 30 ML OP ONE (10:15)
[2018-03-19] MEDS ORDERED: TIMOLOL MALEATE 0.5% 5 ML (TIMOPTIC) BTL OU PRN (10:15)
[2018-03-19] MEDS ORDERED: LIDOCAINE PF 1% 2 ML AMP IR PRN (10:15)
[2018-03-19] MEDS ORDERED: MOXIFLOXACIN OPHTH SOLN 5 MG/ML 0.3 ML SYRINGE OP ONE (10:15)
[2018-03-19] MEDS: TETRACAINE 0.5% OPHTH SOLN 4 ML BTL (SINGLE DOSE ONLY) OU PRN ×4 (10:20→10:48)
[2018-03-19] MEDS: CYCLOPENTOLATE 1% (CYCLOGYL) 2 ML DROPS OP SCH ×3 (10:34→10:48)
[2018-03-19] MEDS: PHENYLEPHRINE 10% OPHTH (NEO-SYN) 5 ML BTL OU SCH ×3 (10:34→10:48)
[2018-03-19] MEDS ORDERED: MIDAZOLAM 2 MG/2 ML (VERSED) VIAL ONE (10:50)
--- NOTE | 2018-03-19 11:01 | Ophthalmologist Pre-Op Note ---
Pre-Operative Progress Note H&P Reviewed The H&P was reviewed, patient examined and no changes noted. Date H&P Reviewed: Mar 19, 2018 Time H&P Reviewed: 11:01 Pre-Op Dx Cataract, Right Eye JARRED SHARP MD Mar 19, 2018 11:01
--- NOTE | 2018-03-19 11:29 | Ophthalmology Operative Report ---
Cataract removal/placement IOL PREOPERATIVE DIAGNOSIS: Cataract Right Eye POSTOPERATIVE DIAGNOSIS: Cataract Right Eye PROCEDURE: Cataract removal and placement of posterior chamber implant, right eye SURGEON: Vimal Sharp ANESTHESIA: Topical with sedation COMPLICATIONS: None ESTIMATED BLOOD LOSS: Minimal DESCRIPTION OF PROCEDURE: After proper informed consent was obtained, the patient, a 67 female, was taken to the Operating Room and the right eye was anesthetized with tetracaine. The right eye was then prepped and draped in the usual manner. A wire lid speculum was placed. A paracentesis was made at the left hand position. Preservative free lidocaine was injected into the anterior chamber followed by viscoelastic. A clear corneal incision was made in the temporal position. A capsulorrhexis was preformed and the central nuclear and cortical material were removed. The posterior capsule was polished and Shahriar AU00T0 27.0 IOL was placed into the capsular bag. The residual viscoelastic was aspirated and balanced saline solution was injected into the anterior chamber. Moxifloxacin was injected into the anterior chamber. The wound was checked and found to be water tight. The patient tolerated the procedure well without complications. VIMAL SHARP MD Mar 19, 2018 11:29
[2018-03-19] MEDS ORDERED: acetaZOLAMIDE ER 500 MG CAP (DIAMOX SEQUELS) PO ONE (11:30)
--- OUTSIDE RECORDS SUMMARY | 2018-03-19 11:33 | XMS REPORT | Continuity of Care Document ---
Author Author [facility] Organization [facility] Address Unknown Phone Unavailable Allergies Active Description Code Type Severity Reaction Onset Reported/Identified Relationship to Patient Clinical Status Yes No Known Drug Allergies [id number] Drug Allergy Mild N/A 08/06/2008 Medications There is no data. Problems Date Dx Coded Attending Type Code Diagnosis Diagnosed By 04/12/2015 SHANTEL BABB DO Ot Z12.31 04/28/2015 BHAVYA BABB DOI Ot Z12.31 02/08/2017 BHAVYA BABB DOI Ot Z12.31 ENCNTR SCREEN MAMMOGRAM FOR MALIGNANT NE 06/11/2017 BHAVYA BABB DOI Ot Z12.31 ENCNTR SCREEN MAMMOGRAM FOR MALIGNANT NE 06/12/2017 BHAVYA BABB DOI Ot Z12.31 ENCNTR SCREEN MAMMOGRAM FOR MALIGNANT NE 03/05/2018 HOLLEY SMITH SHANTEL Ot Z12.31 ENCNTR SCREEN MAMMOGRAM FOR MALIGNANT NE 03/05/2018 HOLLEY SMITH SHANTEL Ot Z12.31 ENCNTR SCREEN MAMMOGRAM FOR MALIGNANT NE 03/11/2018 HOLLEY SMITH SHANTEL Ot Z12.31 ENCNTR SCREEN MAMMOGRAM FOR MALIGNANT NE 03/11/2018 BHAVYA BABB DOI Ot Z12.31 ENCNTR SCREEN MAMMOGRAM FOR MALIGNANT NE 03/11/2018 JARRED SHARP MD Ot Z01.818 ENCOUNTER FOR OTHER PREPROCEDURAL EXAMIN 03/12/2018 JARRED SHARP MD Ot Z01.818 ENCOUNTER FOR OTHER PREPROCEDURAL EXAMIN 03/12/2018 HOLLEY SMITH SHANTEL Ot Z12.31 ENCNTR SCREEN MAMMOGRAM FOR MALIGNANT NE 03/12/2018 HOLLEY SMITH SHANTEL Ot Z12.31 ENCNTR SCREEN MAMMOGRAM FOR MALIGNANT NE 03/13/2018 HOLLEY SMITH SHANTEL Ot Z12.31 ENCNTR SCREEN MAMMOGRAM FOR MALIGNANT NE 03/13/2018 HOLLEY SMITH SHANTEL Ot Z12.31 ENCNTR SCREEN MAMMOGRAM FOR MALIGNANT NE 03/13/2018 JARRED SHARP MD Ot E11.9 TYPE 2 DIABETES MELLITUS WITHOUT COMPLIC 03/13/2018 JARRED SHARP MD Ot E66.01 MORBID (SEVERE) OBESITY DUE TO EXCESS CA 03/13/2018 JARRED SHARP MD, Ot E78.00 PURE HYPERCHOLESTEROLEMIA, UNSPECIFIED 03/13/2018 JARRED SHARP MD, Ot H25.12 AGE-RELATED NUCLEAR CATARACT, LEFT EYE 03/13/2018 JARRED SHARP MD, Ot I10 ESSENTIAL (PRIMARY) HYPERTENSION 03/13/2018 JARRED SHARP MD, Ot Z68.41 BODY MASS INDEX (BMI) 40.0-44.9, ADULT 03/13/2018 JARRED SHARP MD, Ot Z79.4 SENIOR CARE (CURRENT) USE OF INSULIN 03/13/2018 JARRED SHARP MD, Ot 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 Results Test Result Range Capillary blood glucose measurement by glucometer (mass/volume) - 03/12/18 09: 14 Capillary blood glucose measurement by glucometer (mass/volume) 200 mg/dL 70-110 Capillary blood glucose measurement by glucometer (mass/volume) - 03/19/18 10: 12 Capillary blood glucose measurement by glucometer (mass/volume) 189 mg/dL 70-110 Encounters ACCT No. Visit Date/Time Discharge Status Pt. Type Provider Facility Loc./Unit Complaint [id number] 03/17/2018 05:42:00 03/17/2018 12:54:00 DIS Outpatient JARRED SHARP MD [facility] PREOP CATARACT RIGHT EYE [id number] 03/12/2018 08:49:00 03/12/2018 10:47:00 DIS Outpatient JARRED SHARP MD [facility] SDC CATARACT LEFT EYE [id number] 03/11/2018 06:26:00 03/11/2018 13:59:00 DIS Outpatient JARRED SHARP MD [facility] PREOP CATARACT LEFT [id number] 06/11/2017 13:31:00 06/11/2017 23:59:59 CLS Outpatient BABB DO, SHANTEL [facility] RAD SCREENING [id number] 02/13/2017 15:30:00 02/13/2017 23:59:59 CLS Preadmit BABB DO, SHANTEL [facility] RAD Z12.31 [id number] 02/16/2015 09:22:00 02/16/2015 23:59:59 CLS Outpatient BABB DO, SHANTEL [facility] RAD SCREENING [id number] 03/19/2018 10:00:00 PEN Preadmit JARRED SHARP MD [facility] SD CATARACT RIGHT EYE
[2018-03-19 11:35] VITALS: BP 145/83
--- NOTE | 2018-03-19 13:34 | Anesthesia-General Post-Op ---
MAC Patient Condition Mental Status/LOC: Same as Preop Cardiovascular: Satisfactory Nausea/Vomiting: Absent Respiratory: Satisfactory Pain: Controlled Complications: Absent Post Op Complications Complications None Follow Up Care/Instructions Patient Instructions None needed. Anesthesiology Discharge Order Discharge Order Patient is doing well, no complaints, stable vital signs, no apparent adverse anesthesia problems. JUAN C IGLESIAS DO Mar 19, 2018 13:34
== END 2018-03-19 11:40 | disposition home or self-care (01) ==
LOC: SDC 09:55
PROVIDERS: ATTEND Specialist
DX: H25.11 Age-related nuclear cataract, right eye (principal); E11.36 Type 2 diabetes mellitus with diabetic cataract; I10 Essential (primary) hypertension; E78.00 Pure hypercholesterolemia, unspecified; E66.01 Morbid (severe) obesity due to excess calories; Z68.41 Body mass index [BMI] 40.0-44.9, adult; Z79.4 Long term (current) use of insulin; Z79.899 Other long term (current) drug therapy
CPT/HCPCS: 82962

== ENCOUNTER 2018-12-24 14:48 | Inpatient (IN) | payer MEDICARE ==
[~2018-12-24] VITALS: Ht 160 cm; Wt 127.0 kg
[2018-12-24] VITALS (7 sets, daily range): BP systolic 127–183; BP diastolic 82–115
[2018-12-24] MEDS ORDERED: ASPIRIN 81 MG CHEW (CHILDREN'S ASA) PO ONE (15:45)
--- NOTE | 2018-12-24 16:43 | NUR ---
IV ATTEMPT X 2, UNSUCCESSFUL
--- NOTE | 2018-12-24 16:59 | ED Respiratory ---
General Chief Complaint: Respiratory Problems Stated Complaint: SOA Nursing Triage Note: HAS BEEN HAVING SOB WITH EXERTION, SEEN HER PCP YESTERDAY, COMES TO ED TODAY WITH CONCERNS OF THE SOB AND NEEDS IT RESOLVED BEFORE GOING ON VACATION History of Present Illness Date Seen by Provider: Dec 24, 2018 Time Seen by Provider: 15:15 Initial Comments 68 year old female reports for the last week she's been having intermittent shortness of air. Approximately 2 weeks ago she had an episode of vomiting that lasted 2 days and she associated the chest and abdominal discomfort from multiple vomiting and wretching episodes. She denies chest pain at this time. However she has persistent shortness of air, worsening with exertion. She has no previous history of respiratory or cardiac health problems. She is not on anticoagulants or aspirin. She has persistent left knee pain, no injuries. She is diabetic and sees her primary care provider every 3-4 months. She last saw Dr. Babb in mid November for her DM follow up. She has no known risk factors for DVT or PE, no hx of taking Hormones, extensive bed rest, recent surgeries, or coagulopathies. Timing/Duration: intermittent Prior Episodes/Possible Cause: no prior episodes Modifying Factors: Improves With Rest Associated Symptoms: No chest pain/soreness; cough; No fever/chills, No headache, No lightheadedness, No nasal congestion, No nasal drainage; shortness of breath; No sinus infection, No sore throat, No wheezing Allergies and Home Medications Allergies Coded Allergies: No Known Drug Allergies (Unverified , 08/06/08) Home Medications Atorvastatin Calcium 40 Mg Tablet, 40 MG PO DAILY, (Reported) Benazepril HCl 20 Mg Tablet, 20 MG PO DAILY, (Reported) Cholecalciferol (Vitamin D3) 5,000 Unit Tablet, 5,000 UNIT PO DAILY, (Reported) Felodipine 5 Mg Tab.er.24h, 5 MG PO DAILY, (Reported) Insulin Glargine,Hum.rec.anlog 100 Unit/1 Ml Insuln.pen, 17 UNIT SQ HS, (Reported) Iron Polysaccharide Complex 150 Mg Capsule, 150 MG PO BID, (Reported) Levothyroxine Sodium 125 Mcg Tablet, 125 MCG PO DAILY, (Reported) Patient Home Medication List Home Medication List Reviewed: Yes Review of Systems Review of Systems Constitutional: no symptoms reported Respiratory: see HPI, short of breath Cardiovascular: no symptoms reported, see HPI; No chest pain Gastrointestinal: no symptoms reported, see HPI; No diarrhea, No nausea, No vomiting Genitourinary: no symptoms reported, see HPI Musculoskeletal: see HPI, joint pain (left knee, chronic) Skin: no symptoms reported, see HPI All Other Systems Reviewed Negative Unless Noted: Yes Past Jpowrkz-Rlopbb-Bgdoxi Hx Past Med/Social Hx: Reviewed Nursing Past Med/Soc Hx Patient Social History Alcohol Use: Denies Use Recreational Drug Use: No 2nd Hand Smoke Exposure: No Recent Foreign Travel: No Contact w/Someone Who Travel: No Recent Infectious Disease Expo: No Physical Abuse: No Sexual Abuse: No Mistreated: No Fear: No Past Medical History Reproductive Disorders: No Physical Exam Vital Signs - First Documented 12/24/18 15:00 Temp 37.4 Pulse 103 Resp 18 B/P (MAP) 168/96 (120) Capillary Refill : Less Than 3 Seconds Height: 5'3.00" Weight: 250lbs. 0.0oz. 113.481585to; 46.00 BMI Method: General Appearance: WD/WN, no apparent distress Eyes: Bilateral Eye Normal Inspection, Bilateral Eye PERRL, Bilateral Eye EOMI HEENT: PERRL/EOMI, normal ENT inspection, TMs normal, pharynx normal Neck: non-tender, full range of motion, supple, normal inspection Respiratory: chest non-tender, lungs clear, normal breath sounds Cardiovascular: normal peripheral pulses, regular rate, rhythm Gastrointestinal: normal bowel sounds, non tender, soft Extremities: normal range of motion, non-tender, normal capillary refill, other (trace effusion left knee, no instability and full range of motion.) Neurologic/Psychiatric: no motor/sensory deficits, alert, normal mood/affect, oriented x 3 Skin: normal color, warm/dry Lymphatic: no adenopathy Progress/Results/Core Measures Suspected Sepsis Recent Fever Within 48 Hours: No Infection Criteria Present: None New/Unexplained Altered Menta: No Sepsis Screen: No Definite Risk SIRS Temperature: Pulse: 103 Respiratory Rate: 18 Laboratory Tests 12/24/18 17:02: White Blood Count 8.3 Blood Pressure 168 /96 Mean: 120 Laboratory Tests 12/24/18 17:02: Creatinine 1.05, INR Comment 1.0, Platelet Count 303, Total Bilirubin 0.4 Results/Orders Lab Results Laboratory Tests Test 12/24/18 16:39 12/24/18 17:02 Range/Units Urine Color YELLOW Urine Clarity CLEAR Urine pH 6 5-9 Urine Specific Mallie 1.010 L 1.016-1.022 Urine Protein 2+ H NEGATIVE Urine Glucose (UA) NEGATIVE NEGATIVE Urine Ketones NEGATIVE NEGATIVE Urine Nitrite NEGATIVE NEGATIVE Urine Bilirubin NEGATIVE NEGATIVE Urine Urobilinogen NORMAL NORMAL MG/DL Urine Leukocyte Esterase NEGATIVE NEGATIVE Urine RBC (Auto) 1+ H NEGATIVE Urine RBC RARE /HPF Urine WBC NONE /HPF Urine Squamous Epithelial Cells 5-10 /HPF Urine Crystals NONE /LPF Urine Bacteria TRACE /HPF Urine Casts NONE /LPF Urine Mucus NEGATIVE /LPF Urine Culture Indicated NO White Blood Count 8.3 4.3-11.0 10^3/uL Red Blood Count 3.51 L 4.35-5.85 10^6/uL Hemoglobin 9.7 L 11.5-16.0 G/DL Hematocrit 32 L 35-52 % Mean Corpuscular Volume 91 80-99 FL Mean Corpuscular Hemoglobin 28 25-34 PG Mean Corpuscular Hemoglobin Concent 31 L 32-36 G/DL Red Cell Distribution Width 15.9 H 10.0-14.5 % Platelet Count 303 130-400 10^3/uL Mean Platelet Volume 9.8 7.4-10.4 FL Neutrophils (%) (Auto) 72 42-75 % Lymphocytes (%) (Auto) 21 12-44 % Monocytes (%) (Auto) 6 0-12 % Eosinophils (%) (Auto) 1 0-10 % Basophils (%) (Auto) 0 0-10 % Neutrophils # (Auto) 6.0 1.8-7.8 X 10^3 Lymphocytes # (Auto) 1.7 1.0-4.0 X 10^3 Monocytes # (Auto) 0.5 0.0-1.0 X 10^3 Eosinophils # (Auto) 0.1 0.0-0.3 10^3/uL Basophils # (Auto) 0.0 0.0-0.1 10^3/uL Prothrombin Time 14.0 12.2-14.7 SEC INR Comment 1.0 0.8-1.4 Activated Partial Thromboplast Time 28 24-35 SEC D-Dimer 2.95 H 0.00-0.49 UG/ML Sodium Level 139 135-145 MMOL/L Potassium Level 4.5 3.6-5.0 MMOL/L Chloride Level 103 98-107 MMOL/L Carbon Dioxide Level 25 21-32 MMOL/L Anion Gap 11 5-14 MMOL/L Blood Urea Nitrogen 12 7-18 MG/DL Creatinine 1.05 0.60-1.30 MG/DL Estimat Glomerular Filtration Rate 52 BUN/Creatinine Ratio 11 Glucose Level 133 H 70-105 MG/DL Calcium Level 9.6 8.5-10.1 MG/DL Corrected Calcium 9.7 8.5-10.1 MG/DL Total Bilirubin 0.4 0.1-1.0 MG/DL Aspartate Amino Transf (AST/SGOT) 13 5-34 U/L Alanine Aminotransferase (ALT/SGPT) 13 0-55 U/L Alkaline Phosphatase 100 40-136 U/L Total Protein 7.1 6.4-8.2 GM/DL Albumin 3.9 3.2-4.5 GM/DL Micro Results Microbiology 12/24/18 Influenza Types A,B Antigen (PRABHU) - Final, Complete My Orders Orders - AMALIA MENDEZ Ct Angio Chest W (12/24/18 15:56) Cbc With Automated Diff (12/24/18 15:56) Comprehensive Metabolic Panel (12/24/18 15:56) Fibrin Degradation Products (12/24/18 15:56) Protime With Inr (12/24/18 15:56) Partial Thromboplastin Time (12/24/18 15:56) Ua Culture If Indicated (12/24/18 15:56) Ed Iv/Invasive Line Start (12/24/18 16:00) Ekg Tracing (12/24/18 17:12) Influenza A And B Antigens (12/24/18 17:12) Iohexol Injection (Omnipaque 350 Mg/Ml 1 (12/24/18 18:15) Received Contrast (Hold Metformin- Contr (12/24/18 18:15) Ns (Ivpb) (Sodium Chloride 0.9% Ivpb Bag (12/24/18 18:15) Accucheck Stat ONCE (12/24/18 19:47) Ed Iv/Invasive Line Start (12/24/18 19:47) Ns Iv 1000 Ml (Sodium Chloride 0.9%) (12/24/18 19:47) Medications Given in ED Current Medications Medications Dose Ordered Sig/Geo Route Start Time Stop Time Status Last Admin Dose Admin Iohexol 100 ml ONCE ONCE IV 12/24/18 18:15 12/24/18 18:16 DC 12/24/18 19:29 100 ML Sodium Chloride 100 ml ONCE ONCE IV 12/24/18 18:15 12/24/18 18:16 DC 12/24/18 19:30 100 ML Vital Signs/I&O 12/24/18 15:00 Temp 37.4 Pulse 103 Resp 18 B/P (MAP) 168/96 (120) Capillary Refill : Less Than 3 Seconds Blood Pressure Mean: 120 Progress Note : Time: 15:15 Progress Note Patient seen and evaluated, will obtain labs and reevaluate. 1600 reviewed lab results, discussed with the patient the need for a CT angios. They've had difficulty obtaining venous access. We'll attempt to secure an IV for the CT study. 164 continuing having difficulty obtaining IV access, patient frustrated with process, explained to her with an elevated d-dimer and her symptoms a CT angiography is indicated. He will have anesthesia come in for IV access. 1744 anesthesia here, will await IV access for CT. she has no complaints at this time. 1829 IV access obtained, awaiting CT for trauma patient. Patient eating peanut butter and crackers. 1944 CT positive for extensive bilateral PEs. Discussed with patient.Accucheck [address] Simmons, for additional coagulopathy studies and starting patient on Xarelto. Spoke to Dr. De La Rosa, agreed with admission. Will consult Dr. Green in the morning, let message for him. Will hold metformin and she had dye study, will give Levemir this evening. Diagnostic Imaging Diagonstic Imaging: CT Plain Films/CT/US/NM/MRI: chest Comments NAME: [facility] REC#: [id number] PT STATUS: REG ER : 1950 PHYSICIAN: AMALIA MENDEZ ADMIT DATE: 12/24/18/ER Signed Date of Exam: 12/24/18 CT ANGIO CHEST W PROCEDURE: CT angiography of the chest with contrast. TECHNIQUE: Multiple contiguous axial images were obtained through the chest after uneventful bolus administration of intravenous contrast. 3D reconstructed CTA MIP acquisitions were also performed. Auto Exposure Controls were utilized during the CT exam to meet ALARA standards for radiation dose reduction. INDICATION: Shortness of air, elevated d-dimer. COMPARISON: None available. FINDINGS: Vasculature: Large burden of acute bilateral PE. The dominant burden is within the distal right main pulmonary artery extending into the right upper and lower lobe lobar and segmental arteries. Emboli are also present within the left upper and lower lobe segmental bronchi. The pulmonary trunk is dilated measuring 4.0 cm. There is also flattening of the intraventricular septum. Thoracic aorta is normal in caliber. No aortic dissection or pseudoaneurysm. Heart and mediastinum: Visualized thyroid is normal. No supraclavicular, axillary, or intra-thoracic lymphadenopathy. No pericardial effusion. Pleura: No pleural effusion or pneumothorax. Lungs and airway: No endoluminal lesion in the trachea or central bronchi. No pulmonary mass, nodule or consolidation. Upper abdomen: Allowing for the phase of contrast, no acute abnormality in the upper abdomen is seen. Cholecystectomy. Musculoskeletal: No concerning osseous lesion. IMPRESSION: 1. Large burden of extensive bilateral pulmonary emboli. There are features of pulmonary hypertension and potential right ventricular strain. 2. Findings were called to Amalia in the emergency department at 7:39 PM on 12/24/2018. Dictated by: Dictated on workstation # [id number] Reviewed: Reviewed by Me, Discussed w/Radiologist Departure Impression Primary Impression: Bilateral pulmonary embolism Disposition: ADMITTED INPATIENT Condition: Stable Admissions Decision to Admit Reason: Admit from ER (General) Decision to Admit/Date: Dec 24, 2018 Time/Decision to Admit Time: 20:30 Departure-Patient Inst. Referrals: SHANTEL BABB DO (PCP/Family) Primary Care Physician AMALIA MENDEZ Dec 24, 2018 16:59
[2018-12-24 17:01] LABS: BILIRUBIN,URINE NEGATIVE (NEGATIVE); CLARITY,URINE CLEAR; COLOR,URINE YELLOW; GLUCOSE, URINE (UA) NEGATIVE (NEGATIVE); KETONES,URINE NEGATIVE (NEGATIVE); LEUKOCYTE ESTERASE ,URINE NEGATIVE (NEGATIVE); NITRITE,URINE NEGATIVE (NEGATIVE); PH,URINE 6 (5-9); PROTEIN,URINE 2+ (NEGATIVE); UROBILINOGEN,URINE NORMAL (NORMAL)
[2018-12-24 17:13] LABS: BACTERIA,URINE TRACE /HPF; RBC,URINE RARE /HPF
[2018-12-24 17:22] LABS: FIBRIN DEGRADATION PRODUCTS 2.95 UG/ML (0.00-0.49)
[2018-12-24 17:24] LABS: BASOPHILS % (AUTO) 0 % (0-10); EOSINOPHILS # (AUTO) 0.1 10^3/uL (0.0-0.3); EOSINOPHILS % (AUTO) 1 % (0-10); HEMATOCRIT 32 % (35-52); HEMOGLOBIN 9.7 G/DL (11.5-16.0); LYMPHOCYTES # (AUTO) 1.7 X 10^3 (1.0-4.0); LYMPHOCYTES % (AUTO) 21 % (12-44); MEAN CORPUSCULAR HEMOGLOBIN 28 PG (25-34); MEAN CORPUSCULAR HGB CONC 31 G/DL (32-36); MEAN CORPUSCULAR VOLUME 91 FL (80-99); MEAN PLATELET VOLUME 9.8 FL (7.4-10.4); MONOCYTES # (AUTO) 0.5 X 10^3 (0.0-1.0); MONOCYTES % (AUTO) 6 % (0-12); NEUTROPHILS % (AUTO) 72 % (42-75); PLATELET COUNT 303 10^3/uL (130-400); RED CELL DISTRIBUTION WIDTH 15.9 % (10.0-14.5); WHITE BLOOD COUNT 8.3 10^3/uL (4.3-11.0)
--- NOTE | 2018-12-24 17:30 | NUR ---
pt sitting in ED bed quietly with family at side, pt shows no s/s of distress, pt denies any needs or c/o at this time, will continue to monitor
[2018-12-24 17:38] LABS: ALBUMIN 3.9 GM/DL (3.2-4.5); BILIRUBIN,TOTAL 0.4 MG/DL (0.1-1.0); CALCIUM 9.6 MG/DL (8.5-10.1); CREATININE SERUM 1.05 MG/DL (0.60-1.30); POTASSIUM 4.5 MMOL/L (3.6-5.0); TOTAL PROTEIN 7.1 GM/DL (6.4-8.2)
[2018-12-24] MEDS ORDERED: HOLD METFORMIN - RECEIVED CONTRAST 20 ML VIAL IV SCH (18:15)
[2018-12-24] MEDS ORDERED: NS 100 ML (IVPB) BAG IV ONE (18:15)
[2018-12-24] MEDS ORDERED: IOHEXOL 350 MG/ML 100 ML (OMNIPAQUE 350) VIAL IV ONE (18:15)
--- NOTE | 2018-12-24 18:54 | NUR ---
CELL TENDER HELPER in room to attempt IV placement
--- NOTE | 2018-12-24 19:06 | Anesthesia-Procedure Note ---
Procedures/Interventions Procedure Start/Stop/Diagnosis Date of Procedure: Dec 24, 2018 Start Time: 18:35 Referring Physician: Munira Preprocedural Diagnosis: JESSE Brief History Called by warehouse administrator for difficult IV start. Pt was stuck multiple times in ER without success. I attempted 3 times and was able to place 22g Rt forearm with good blood return flushing easily. U/S guided attempted left AC without success. Report to RN. Pt needs CT angiogram. ASA 3 Stop Time: 19:00 Postprocedural Diagnosis: SHIRLENE VEGA CRNA Dec 24, 2018 19:06
[2018-12-24] MEDS ORDERED: NS IV 1000 ML 1,000 ML IV SCH ×2 (19:47→21:45)
--- NOTE | 2018-12-24 19:50 | Diagnostic Imaging Report ---
PROCEDURE: CT angiography of the chest with contrast. TECHNIQUE: Multiple contiguous axial images were obtained through the chest after uneventful bolus administration of intravenous contrast. 3D reconstructed CTA MIP acquisitions were also performed. Auto Exposure Controls were utilized during the CT exam to meet ALARA standards for radiation dose reduction. INDICATION: Shortness of air, elevated d-dimer. COMPARISON: None available. FINDINGS: Vasculature: Large burden of acute bilateral PE. The dominant burden is within the distal right main pulmonary artery extending into the right upper and lower lobe lobar and segmental arteries. Emboli are also present within the left upper and lower lobe segmental bronchi. The pulmonary trunk is dilated measuring 4.0 cm. There is also flattening of the intraventricular septum. Thoracic aorta is normal in caliber. No aortic dissection or pseudoaneurysm. Heart and mediastinum: Visualized thyroid is normal. No supraclavicular, axillary, or intra-thoracic lymphadenopathy. No pericardial effusion. Pleura: No pleural effusion or pneumothorax. Lungs and airway: No endoluminal lesion in the trachea or central bronchi. No pulmonary mass, nodule or consolidation. Upper abdomen: Allowing for the phase of contrast, no acute abnormality in the upper abdomen is seen. Cholecystectomy. Musculoskeletal: No concerning osseous lesion. IMPRESSION: 1. Large burden of extensive bilateral pulmonary emboli. There are features of pulmonary hypertension and potential right ventricular strain. 2. Findings were called to Amalia in the emergency department at 7:39 PM on 12/24/2018. Dictated by: Dictated on workstation # [id number]
[2018-12-24] MEDS ORDERED: RIVAROXABAN 15 MG TABLET (XARELTO) PO ONE (20:30)
[2018-12-24] MEDS ORDERED: ONDANSETRON 4 MG/2 ML (SDV) Z0FRAN IV PRN (21:45)
[2018-12-24] MEDS ORDERED: ACETAMINOPHEN 325 MG TABLET PO PRN (21:45)
[2018-12-24] MEDS ORDERED: HEParin DRIP 25000 UNIT/500ML 500 ML IV SCH (23:05)
--- NOTE | 2018-12-24 23:08 | NUR ---
orders received from dr. hardin to stop oral anticoagulant and begin full heparin protocol
[2018-12-24] MEDS ORDERED: RT-ALBUTEROL SULF 2.5 MG/3 ML PRE-MIX VIAL INH PRN (23:15)
[2018-12-24] MEDS ORDERED: HEParin 1000 UNIT/ML (10ML VIAL) FOR BOLUS IV SCH (23:15)
[2018-12-24 23:27] LABS: HEMOGLOBIN 9.6 G/DL (11.5-16.0); MEAN PLATELET VOLUME 9.3 FL (7.4-10.4); RED CELL DISTRIBUTION WIDTH 15.9 % (10.0-14.5); WHITE BLOOD COUNT 8.4 10^3/uL (4.3-11.0)
[2018-12-24 23:41] LABS: INR 1.7 (0.8-1.4)
[2018-12-25] VITALS (22 sets, daily range): BP systolic 133–189; BP diastolic 65–109
[2018-12-25 04:03] LABS: BASOPHILS % (AUTO) 0 % (0-10); EOSINOPHILS # (AUTO) 0.1 10^3/uL (0.0-0.3); EOSINOPHILS % (AUTO) 2 % (0-10); HEMATOCRIT 29 % (35-52); HEMOGLOBIN 8.6 G/DL (11.5-16.0); LYMPHOCYTES # (AUTO) 1.9 X 10^3 (1.0-4.0); LYMPHOCYTES % (AUTO) 25 % (12-44); MEAN CORPUSCULAR HEMOGLOBIN 27 PG (25-34); MEAN CORPUSCULAR HGB CONC 30 G/DL (32-36); MEAN CORPUSCULAR VOLUME 91 FL (80-99); MEAN PLATELET VOLUME 8.8 FL (7.4-10.4); MONOCYTES # (AUTO) 0.5 X 10^3 (0.0-1.0); MONOCYTES % (AUTO) 7 % (0-12); NEUTROPHILS # (AUTO) 4.9 X 10^3 (1.8-7.8); NEUTROPHILS % (AUTO) 66 % (42-75); PLATELET COUNT 269 10^3/uL (130-400); RED CELL DISTRIBUTION WIDTH 15.8 % (10.0-14.5); WHITE BLOOD COUNT 7.4 10^3/uL (4.3-11.0)
[2018-12-25 04:23] LABS: ALANINE AMINOTRANSFERASE 8 U/L (0-55); ALBUMIN 3.3 GM/DL (3.2-4.5); ALKALINE PHOSPHATASE 96 U/L (40-136); BILIRUBIN,TOTAL 0.3 MG/DL (0.1-1.0); BUN/CREATININE RATIO 9; CALCIUM 8.6 MG/DL (8.5-10.1); CARBON DIOXIDE 23 MMOL/L (21-32); CHLORIDE 106 MMOL/L (98-107); CREATININE SERUM 0.88 MG/DL (0.60-1.30); GFR ESTIMATED > 60; GLUCOSE 134 MG/DL (70-105); MAGNESIUM 1.6 MG/DL (1.6-2.4); PHOSPHORUS 3.6 MG/DL (2.3-4.7); POTASSIUM 3.9 MMOL/L (3.6-5.0); SODIUM 140 MMOL/L (135-145); TOTAL PROTEIN 6.1 GM/DL (6.4-8.2)
[2018-12-25] MEDS ORDERED: hydrALAZINE (APESOLINE) 20 MG/ML VIAL IV PRN (05:00)
[2018-12-25] MEDS: lisINopril 20 MG (PRINIVIL) TABLET PO SCH (05:01)
[2018-12-25] MEDS: meTOprolol TARTRATE 25 MG (LOPRESSOR) TABLET PO SCH ×2 (05:01→20:13)
[2018-12-25] MEDS: POTASSIUM CL 10MEQ/50ML IVPB 50 ML IV SCH (06:13)
[2018-12-25] MEDS: MAGNESIUM 1 GM/100 ML IVPB 100 ML IV SCH (06:14)
[2018-12-25] MEDS: KCL 20 MEQ TAB (K-DUR) PO SCH (06:14)
[2018-12-25] MEDS: RIVAROXABAN 15 MG TABLET (XARELTO) PO SCH ×2 (06:18→20:13)
--- NOTE | 2018-12-25 06:23 | Pulmonary Consultation ---
MATEO PÉREZ,MED STUDENT 12/25/18 0623: History of Present Illness History of Present Illness Date of Consultation 12/25/18 06:07 Time Seen by Provider: 06:07 Date of Admission Reason for Visit: progressive worsening of SOB History of Present Illness Patient is a 68 y/o female that presented the ED with intermittent SOB for the past week that has not improved. She says that she was sick (nausea, vomiting, fever, chills, malaise, dizziness, sternal chest pain) approximately 2wks ago. At time of admission she admitted to having SOB that worsened with exertion, malaise, dizziness, chest pain, cough, and numbness in her Left foot. She denies nausea, vomiting, headache, stomach pain, changes in vision or hearing, fever, chills, and tingling. She has no history of respiratory or cardiac problems but does have HTN, high cholesterol, diabetes (IDDMII), and hypothyroidism. She denies being on anticoagulants, aspirin, hormonal therapies, EtOH use in the past 10yrs, and smoking. She mentioned that her left leg is swollen and hurts when walking, and persistent pain in the back of her Left knee when she stands. Allergies and Home Medications Allergies Coded Allergies: No Known Drug Allergies (Unverified , 08/06/08) Home Medications Amlodipine Besylate 5 Mg Tablet, 5 MG PO DAILY, (Reported) Atorvastatin Calcium 40 Mg Tablet, 40 MG PO DAILY, (Reported) Benazepril HCl 20 Mg Tablet, 20 MG PO DAILY, (Reported) Cholecalciferol (Vitamin D3) 5,000 Unit Tablet, 5,000 UNIT PO DAILY, (Reported) Insulin Detemir 100 Unit/1 Ml Insuln.pen, 30 UNITS SC HS, (Reported) Iron Polysaccharide Complex 150 Mg Capsule, 150 MG PO BID, (Reported) Levothyroxine Sodium 125 Mcg Tablet, 125 MCG PO DAILY, (Reported) Metformin HCl 500 Mg Tablet, 500 MG PO BID, (Reported) Past Cqvaajl-Tggvkt-Pizlkd Hx Past Med/Social Hx: Reviewed Nursing Past Med/Soc Hx Patient Social History Alcohol Use: Denies Use Recreational Drug Use: No 2nd Hand Smoke Exposure: No Recent Foreign Travel: No Contact w/Someone Who Travel: No Recent Infectious Disease Expo: No Physical Abuse: No Sexual Abuse: No Mistreated: No Fear: No Past Medical History Bowel Surgery, Eye Surgery, Gallbladder Heart Murmur, High Cholesterol, Hypertension Reproductive Disorders: No Review of Systems Date Seen by Provider: Dec 25, 2018 Time Seen by Provider: 06:07 Constitutional: Weakness; No: Fever, Chills Eyes: No: Vision change ENT: No: Ear pain Respiratory: Cough, Dry, Shortness of breath, SOB with excertion Cardiovascular: Chest Pain, Edema; No: Palpitations Gastrointestinal: No: Nausea, Vomiting, Abdominal Pain Musculoskeletal: leg pain (L leg) Neurological: Numbness (L foot ) Sepsis Event Evaluation Height, Weight, BMI Height: 5'3.00" Weight: 250lbs. 0.0oz. 113.294511oq; 46.00 BMI Method: Exam Exam Vital Signs Date Time Temp Pulse Resp B/P (MAP) Pulse Ox O2 Delivery O2 Flow Rate FiO2 12/25/18 05:00 84 20 189/89 (122) 97 Nasal Cannula 2.00 12/25/18 04:00 Nasal Cannula 2.00 12/25/18 04:00 36.7 12/25/18 04:00 85 165/94 (117) 96 Nasal Cannula 2.00 12/25/18 03:00 80 23 150/79 (102) 97 Nasal Cannula 2.00 12/25/18 02:00 82 18 158/85 (109) 98 Nasal Cannula 2.00 12/25/18 01:00 86 12/25/18 01:00 86 21 175/109 (131) 99 Nasal Cannula 2.00 12/25/18 00:33 Nasal Cannula 2.00 12/25/18 00:00 92 21 163/71 (101) 92 Room Air 12/25/18 00:00 Nasal Cannula 2.00 12/24/18 23:03 Nasal Cannula 2.00 12/24/18 23:00 90 22 160/82 (108) 93 Room Air 12/24/18 22:54 36.4 93 93 21 12/24/18 22:15 93 22 154/84 (107) 93 Room Air 12/24/18 22:00 96 14 167/89 (115) 95 Room Air 12/24/18 21:45 95 19 172/85 (114) 95 Room Air 12/24/18 21:30 93 20 127/115 (119) 95 Room Air 12/24/18 21:18 102 12/24/18 21:17 36.4 98 18 183/98 (126) 97 Room Air 12/24/18 21:17 97 Room Air 12/24/18 21:10 37.4 95 18 162/82 (120) 97 12/24/18 15:00 37.4 103 18 168/96 (120) I & O 12/25/18 07:00 Intake Total 1270 ml Balance 1270 ml Height & Weight Height: 5'3.00" Weight: 250lbs. 0.0oz. 113.425128lp; 46.00 BMI Method: General Appearance: No Apparent Distress, WD/WN, Obese Respiratory: Chest Non Tender, Lungs Clear, Normal Breath Sounds, No Accessory Muscle Use, No Respiratory Distress Cardiovascular: Regular Rate, Rhythm, No Gallop, No JVD, Normal Peripheral Pulses, Diastolic Murmur Capillary Refill: Less Than 3 Seconds Peripheral Pulses: 2+ Dorsalis Pedis (R), 2+ Left Dors-Pedis (L), 2+ Radial Pulses (R), 2+ Radial Pulses (L) Gastrointestinal: normal bowel sounds, non tender, soft Extremity: Pedal Edema (L foot ), Swelling (L leg) Neurologic/Psychiatric: Alert, Oriented x3, Normal Mood/Affect Skin: Normal Color, Warm/Dry Lymphatic: No Adenopathy Results Lab Laboratory Tests 12/24/18 17:02 12/24/18 23:20 12/25/18 04:01 Assessment/Plan Assessment/Plan Acute respiratory distress - likely d/t unprovoked PEs - Chest CT with contrast = showed b/l PEs - Xarelto - strongly recommend life time anticoagulation b/c patient's hx suggests unprovoked PEs - DC Heparin drip - b/l Doppler US of Lower extremities - Place on 2L O2 - stats in mid to high 90s - consult cardiology about - IS CHANA - follow with outpatient sleep study IDDMII HTN - given metoprolol, hydralazine, and lisinopril high cholesterol hypothyroidism FENGIPPx - D/C fluids - diabetic diet KHANG GREEN DO 12/26/18 0544: History of Present Illness History of Present Illness Time Seen by Provider: 05:27 Allergies and Home Medications Allergies Coded Allergies: No Known Drug Allergies (Unverified , 08/06/08) Home Medications Amlodipine Besylate 5 Mg Tablet, 5 MG PO DAILY, (Reported) Atorvastatin Calcium 40 Mg Tablet, 40 MG PO DAILY, (Reported) Benazepril HCl 20 Mg Tablet, 20 MG PO DAILY, (Reported) Cholecalciferol (Vitamin D3) 5,000 Unit Tablet, 5,000 UNIT PO DAILY, (Reported) Insulin Detemir 100 Unit/1 Ml Insuln.pen, 30 UNITS SC HS, (Reported) Iron Polysaccharide Complex 150 Mg Capsule, 150 MG PO BID, (Reported) Levothyroxine Sodium 125 Mcg Tablet, 125 MCG PO DAILY, (Reported) Metformin HCl 500 Mg Tablet, 500 MG PO BID, (Reported) Exam Exam General Appearance: No Apparent Distress, WD/WN, Obese Respiratory: Chest Non Tender, Normal Breath Sounds, No Accessory Muscle Use, No Respiratory Distress Cardiovascular: Regular Rate, Rhythm, No Gallop, No JVD, Normal Peripheral Pulses, Diastolic Murmur Extremity: Pedal Edema (L foot ), Swelling (L leg) Neurologic/Psychiatric: Alert, Oriented x3, Normal Mood/Affect Skin: Normal Color, Warm/Dry Lymphatic: No Adenopathy Assessment/Plan Assessment/Plan Acute respiratory distress - likely d/t unprovoked PEs - Xarelto - Unprovoked PEs - At least 6 mo of treatment and strong recommendation for life long anticoagulation unless contraindicated. - DC Heparin drip - b/l Doppler US of Lower extremities - Place on 2L O2 - stats in mid to high 90s - consult cardiology about - IS probable CHANA - out pt PSG HTN - given metoprolol, hydralazine, and lisinopril high cholesterol hypothyroidism Supervisory-Addendum Brief Verification & Attestation Participated in pt care: history Personally performed: exam, history Care discussed with: Medical Student Procedures: n/a Verification and Attestation of Medical Student E/M Service A medical student performed and documented this service in my presence. I reviewed and verified all information documented by the medical student and made modifications to such information, when appropriate. I personally performed the physical exam and medical decision making. Khang Green, Dec 26, 2018,05:45 MATEO PÉREZ,MED STUDENT Dec 25, 2018 06:23 KHANG GREEN DO Dec 26, 2018 05:44
--- NOTE | 2018-12-25 07:00 | NUR ---
pt will not have scd they are contraindicated until bilateral lower extremity Doppler is completed. pt currently has bilateral PE.
--- NOTE | 2018-12-25 08:38 | History & Physical-Hospitalist ---
History of Present Illness HPI/Chief Complaint Pt is a 68yoCF with a PMH of HTN, IDDMII, HLD who presented to the ER with a CC of shortness of breath. She states her symptoms started 1 1/2 weeks ago when she awoke in the night with chest pain, diaphoretic, and vomited. She states since then she has had dyspnea on exertion and chest soreness. She attributed the sore ness to vomited. She called was seen by urgent care on 12/23 and they advised her to seek care in the ER to evaluate her heart. She went home and then presented the next day (yesterday) when symptoms did not improve as she has a scheduled vacation for 12/28. D-dimer was found to be elevated and she underwent CTA which revealed massive bilateral pulmonary emboli. She was admitted to the ICU on a heparin gtt. This morning she states she is feeling well. She has noticed bilateral leg swelling with left worse than right. Otherwise she denies any complaints. She denies a history of cancer, she does not smoke or take hormones. She has no history of VTE nor any family history of VTE. Source: patient Date Seen 12/25/18 Time Seen by a Provider: 08:10 Attending Physician Ariana Quarles DO PCP Ariana Quarles DO Referring Physician Date of Admission Dec 24, 2018 at 8:20 pm Home Medications & Allergies Home Medications Reviewed patient Home Medication Reconciliation performed by pharmacy medication reconciliations filter changing technician and/or nursing. Patients Allergies have been reviewed. Allergies Allergies Coded Allergies No Known Drug Allergies (Unverified08/06/08) Past Qippwwi-Nmcnyl-Htaqjb Hx Past Med/Social Hx: Reviewed Nursing Past Med/Soc Hx Patient Social History Alcohol Use: Denies Use Recreational Drug Use: No Smoking Status: Never a Smoker 2nd Hand Smoke Exposure: No Recent Foreign Travel: No Contact w/other who traveled: No Recent Infectious Disease Expo: No Past Medical History Surgeries: Bowel Surgery, Eye Surgery, Gallbladder Cardiac: Heart Murmur, High Cholesterol, Hypertension Reproductive: No Endocrine: Diabetes, Insulin dep, Hypothyroidsim Family History Reviewed Nursing Family Hx Diabetes Review of Systems Constitutional: diaphoresis EENTM: no symptoms reported Respiratory: see HPI, cough (slight), dyspnea on exertion; No hemoptysis, No phlegm; short of breath Cardiovascular: chest pain; No Hx of Intervention Gastrointestinal: see HPI; No abdominal pain, No constipation, No diarrhea, No hematemesis; nausea, vomiting Genitourinary: no symptoms reported Musculoskeletal: no symptoms reported Skin: no symptoms reported Psychiatric/Neurological: No Symptoms Reported Physical Exam Physical Exam Vital Signs Vital Signs - First Documented 12/24/18 12/24/18 12/24/18 12/24/18 15:00 21:10 22:54 23:03 Temp 37.4 Pulse 103 Resp 18 B/P (MAP) 168/96 (120) Pulse Ox 97 O2 Flow Rate 2.00 FiO2 21 Capillary Refill : Less Than 3 Seconds Height, Weight, BMI Height: 5'3.00" Weight: 280lbs. 0.0oz. [id number]; 46.00 BMI Method: General Appearance: No Apparent Distress, WD/WN, Obese HEENT: Moist Mucous Membranes; No Scleral Icterus (L), No Scleral Icterus (R) Neck: Supple; No JVD, No Thyromegaly Respiratory: Lungs Clear, No Accessory Muscle Use, No Respiratory Distress Cardiovascular: Regular Rate, Rhythm, No Murmur Gastrointestinal: Normal Bowel Sounds, Non Tender, Soft Extremity: Calf Tenderness (mild on left), Swelling (L>R, non pitting) Neurologic/Psychiatric: Alert, Oriented x3, Normal Mood/Affect; No Aphasia, No Facial Droop Skin: Normal Color, Warm/Dry Results Results/Procedures Labs Laboratory Tests 12/24/18 17:02 12/24/18 23:20 12/25/18 04:01 Patient resulted labs reviewed. Imaging: Reviewed Imaging Report Assessment/Plan Admission Diagnosis Bilateral PE Admission Status: Inpatient Order (span 2 midnights) Reason for Inpatient Admission: On heparin gtt, evidence of right heart strain Assessment and Plan Bilateral Pulmonary Emboli Possible Right heart Strain Started on heparin gtt overnight Transitioned to Xarelto this AM Discussed with Dr Green- given no hypotension or significant oxygen requirement no indication for TPA Hematology consulted, appreciate recs HTN Elevated overnight but improving this AM with hydralazine Trend IDDMII Hold metformin due to contrast Continue Levemir Diagnosis/Problems Diagnosis/Problems (1) Bilateral pulmonary embolism Status: Acute (2) Essential (primary) hypertension Status: Chronic (3) Pulmonary hypertension Status: Acute (4) Diabetes mellitus Status: Chronic Qualifiers: Diabetes mellitus type: type 2 Diabetes mellitus long-term insulin use: with long-term use Diabetes mellitus complication status: with ophthalmic complications Diabetes mellitus complication detail: with cataract Qualified Codes: E11.36 - Type 2 diabetes mellitus with diabetic cataract; Z79.4 - middle or intermediate school principal (current) use of insulin Clinical Quality Measures DVT/VTE Risk/Contraindication: Risk Factor Score Per Nursin RFS Level Per Nursing on Admit: 4+=Very High JANNETH MURPHY MD Dec 25, 2018 08:38
--- NOTE | 2018-12-25 08:45 | NUR ---
Report received from Loraine POOL. patient sitting in chair in room, call light within reach. Patient oriented to room and call light. Patient verbalizes understanding. Denies any pain or discomfort at this time. Will assume care of patient at this time.
--- NOTE | 2018-12-25 08:50 | NUR ---
pt to room 424 via wheel chair. introduced to room and call system. bedside report given to Lisset POOL.
[2018-12-25] MEDS ORDERED: RIVAROXABAN 15 MG TABLET (XARELTO) PO SCH (09:00)
[2018-12-25] MEDS ORDERED: AMLO5TAB9 PO (09:49)
[2018-12-25] MEDS ORDERED: INSU100I29 SC (09:49)
[2018-12-25] MEDS ORDERED: METF-397 PO (09:49)
[2018-12-25] MEDS ORDERED: IRON150C13 PO (09:52)
--- NOTE | 2018-12-25 10:03 | NUR ---
SPOKE WITH THE PATIENT ABOUT HER MEDICATIONS. WE WENT OVER THE EXT MED HX AND SHE VERIFIED HOW SHE TAKES HER MEDICATIONS. SHE STATES SHE TAKES VITAMIN D 5,000 UNITS DAILY AND POLY IRON BID OTC. HER LEVEMIR WAS FILLED 20 UNITS HS BUT SHE STATES IT HAS SINCE BEEN INCREASED TO 30 UNITS HS.
--- NOTE | 2018-12-25 10:31 | Diagnostic Imaging Report ---
Portable erect AP chest AT 3:06. Indication: Respiratory distress. There are no prior plain film examinations of the chest available for comparison. CT chest exam performed on 12/24/2018 did note large bilateral pulmonary emboli. On this study the heart is enlarged but stable when compared to prior exam. The right hilum is prominent but similar to the previous study. The lungs are generally clear. There is no evidence for failure, pneumonia or for pleural effusion. The mediastinum is not widened. The osseous structures are intact. Impression: The heart is enlarged but stable when compared to the prior exam. There is no acute cardiopulmonary abnormality evident. Dictated by: Dictated on workstation # [id number]
--- NOTE | 2018-12-25 11:57 | Diagnostic Imaging Report ---
PROCEDURE: US Venous Lower Ext Huan. TECHNIQUE: Multiple real-time grayscale images were obtained over the lower extremities in various projections, bilaterally. Additional duplex Doppler and color Doppler images were also obtained. INDICATION: Leg pain and swelling. Pulmonary emboli. COMPARISON: There are no prior studies available for comparison. FINDINGS: There is generally good blood flow and compressibility throughout the deep venous system of the right lower extremity. There is no sign of a deep venous thrombosis. However there does appear to be thrombus formation within the greater saphenous vein on the right near the junction of the common femoral and greater saphenous veins. There is also an extensive thrombus formation in the left leg. There is thrombus formation within the distal superficial femoral vein, the popliteal veins and the anterior and posterior tibial veins. IMPRESSION: 1. There is extensive thrombosis of the left lower extremity. There is also an isolated thrombus in the greater saphenous vein on the right. 2. There is no other evidence for a deep venous thrombosis. Dictated by: Dictated on workstation # [id number]
--- NOTE | 2018-12-25 13:27 | Consultation-Cardiology ---
HPI-Cardiology Cardiology Consultation: Date of Consultation 12/25/18 Date of Admission Attending Physician Ariana Quarles DO Admitting Physician Ariana Quarles DO Consulting Physician Catalina MAGUIRE MD HPI: Time Seen by a Provider: 09:30 Chief Complaint: shortness of breath this is a 68-year-old lady who has history of hypertension, hyperlipidemia, diabetes, hypothyroidism. She denies any significant cardiac symptoms. She presents with worsening shortness of breath in the last one week. She's been sick for the last 2 weeks. She also complains of numbness in her left foot. She was found to have large occlusive right pulmonary artery embolism and also significant embolism in the left main artery. Left popliteal DVT as well. Review of Systems-Cardiology Review of Systems Constitutional: As described under HPI; No As described under HPI, No no symptoms reported, No chills, No fever, No lightheadedness Eyes: No As described under HPI, No no symptoms reported, No blindness, No blurred vision, No contact lenses, No drainage, No decreased acuity, No foreign body sensation, No pain, No vision change Ears/Nose/Throat: No As described under HPI, No no symptoms reported, No chronic hearing loss, No ear discharge, No ear pain, No nasal drainage, No ulcerations Respiratory: No no symptoms reported; As described under HPI; No As described under HPI, No cough; orthopnea; No shortness of breath, No SOB with excertion Cardiovascular: No no symptoms reported; As described under HPI; No As described under HPI, No chest pain, No edema, No irregular heart rate, No lightheadedness, No palpitations Gastrointestinal: No no symptoms reported, No As described under HPI, No abdomen distended, No abdominal pain, No blood streaked bowels, No constipation, No diarrhea, No nausea, No vomiting, No stool coloration changes Genitourinary: No As described under HPI, No burning, No dysuria, No discharge, No frequency, No flank pain, No hematuria, No urgency : Yes : No Skin: No rash, No skin related problems, No ulcerations Psychiatric/Neurological: No anxiety, No depression, No seizure, No focal weakness, No syncope Hematologic: No bleeding abnormalities All Other Systems Reviewed Negative Unless Noted: Yes ZJX-Hkavti-Eqlesd Hx Patient Social History Alcohol Use: Denies Use Recreational Drug Use: No Smoking Status: Never a Smoker 2nd Hand Smoke Exposure: No Recent Foreign Travel: No Recent Infectious Disease Expo: No Hospitalization with Isolation: Denies Past Medical History PMH As described under Assessment. Allergies and Home Medications Allergies Coded Allergies: No Known Drug Allergies (Unverified , 08/06/08) Home Medications Amlodipine Besylate 5 Mg Tablet, 5 MG PO DAILY, (Reported) Atorvastatin Calcium 40 Mg Tablet, 40 MG PO DAILY, (Reported) Benazepril HCl 20 Mg Tablet, 20 MG PO DAILY, (Reported) Cholecalciferol (Vitamin D3) 5,000 Unit Tablet, 5,000 UNIT PO DAILY, (Reported) Insulin Detemir 100 Unit/1 Ml Insuln.pen, 30 UNITS SC HS, (Reported) Iron Polysaccharide Complex 150 Mg Capsule, 150 MG PO BID, (Reported) Levothyroxine Sodium 125 Mcg Tablet, 125 MCG PO DAILY, (Reported) Metformin HCl 500 Mg Tablet, 500 MG PO BID, (Reported) Patient Home Medication List Home Medication List Reviewed: Yes Physical Exam-Cardiology Physical Exam Vital Signs/I&O 12/25/18 12/25/18 12/25/18 12/25/18 05:00 06:00 07:00 07:00 Temp 36.0 Pulse 84 75 81 Resp 20 22 B/P (MAP) 189/89 (122) 137/67 (90) Pulse Ox 97 98 O2 Delivery Nasal Cannula Nasal Cannula O2 Flow Rate 2.00 2.00 12/25/18 12/25/18 12/25/18 12/25/18 07:00 07:57 08:00 08:45 Temp 37.5 Pulse 81 90 Resp 22 20 B/P (MAP) 133/70 (91) 148/65 (92) Pulse Ox 94 94 93 O2 Delivery Nasal Cannula Room Air Nasal Cannula Room Air O2 Flow Rate 2.00 2.00 12/25/18 12/25/18 12/25/18 11:35 13:00 16:00 Temp 37.6 37.0 Pulse 90 87 91 Resp 20 18 B/P (MAP) 158/74 (102) 160/89 (112) Pulse Ox 94 97 O2 Delivery Room Air Room Air 12/25/18 00:00 Intake Total 1120 ml Balance 1120 ml Capillary Refill : Less Than 3 Seconds Constitutional: appears stated age, AAO x 3; No apparent distress; well- developed, well-nourished HEENT: PERRL; No normal ENT inspection, No TMs normal, No pharynx normal, No scleral icterus (R), No scleral icterus (L), No pale conjunctivae (R), No pale conjunctivae (L), No photophobia, No TM abnormal (R), No TM abnormal (L), No pharyngeal erythema, No tonsillar exudate, No other, No discharge, No EOMI; hearing is well preserved; No hard of hearing; oral hygience is good; No ulceration, No xanthelasmas are seen Neck: No carotid bruit; carotid pulses are 2 + bilaterally Respiratory: No accessory muscle use, No respiratory distress, No chest tender, No chest expansion is symmetric; chest is bilaterally symmetric; No lungs clear to percussion; lungs clear to auscultation; No crackles, No rhonchi, No rales, No stridor, No wheezing, No pleural rub, No other Cardiovascular: regular rate-rhythm, S1 and S2 Gastrointestinal: soft, audible bowel sounds; No spleenomegaly Rectal: deferred Extremities: other (Left lower extremity swelling.); No clubbing, No cyanosis, No significant edema Neurologic/Psychiatric: no motor/sensory deficits, alert, normal mood/affect, oriented x 3, power is 5/5 both on sides Skin: No rash, No ulcerations Lymphatic: no adenopathy Data Review Labs Laboratory Tests 12/24/18 17:02: White Blood Count 8.3, Red Blood Count 3.51L, Hemoglobin 9.7L, Hematocrit 32L, Mean Corpuscular Volume 91, Mean Corpuscular Hemoglobin 28, Mean Corpuscular Hemoglobin Concent 31L, Red Cell Distribution Width 15.9H, Platelet Count 303, Mean Platelet Volume 9.8, Neutrophils (%) (Auto) 72, Lymphocytes (%) (Auto) 21, Monocytes (%) (Auto) 6, Eosinophils (%) (Auto) 1, Basophils (%) (Auto) 0, Neutrophils # (Auto) 6.0, Lymphocytes # (Auto) 1.7, Monocytes # (Auto) 0.5, Eosinophils # (Auto) 0.1, Basophils # (Auto) 0.0, Prothrombin Time 14.0, INR Comment 1.0, Activated Partial Thromboplast Time 28, D-Dimer 2.95H, Sodium Level 139, Potassium Level 4.5, Chloride Level 103, Carbon Dioxide Level 25, Anion Gap 11, Blood Urea Nitrogen 12, Creatinine 1.05, Estimat Glomerular Filtration Rate 52, BUN/Creatinine Ratio 11, Glucose Level 133H, Calcium Level 9.6, Corrected Calcium 9.7, Total Bilirubin 0.4, Aspartate Amino Transf (AST/SGOT) 13, Alanine Aminotransferase (ALT/SGPT) 13, Alkaline Phosphatase 100, Total Protein 7.1, Albumin 3.9 12/24/18 20:21: Glucometer 137H 12/24/18 20:33: 12/24/18 23:20: White Blood Count 8.4, Red Blood Count 3.46L, Hemoglobin 9.6L, Hematocrit 31L, Mean Corpuscular Volume 91, Mean Corpuscular Hemoglobin 28, Mean Corpuscular Hemoglobin Concent 31L, Red Cell Distribution Width 15.9H, Platelet Count 283, Mean Platelet Volume 9.3, Prothrombin Time 21.0H, INR Comment 1.7H, Activated Partial Thromboplast Time 38H 12/25/18 04:01: White Blood Count 7.4, Red Blood Count 3.14L, Hemoglobin 8.6L, Hematocrit 29L, Mean Corpuscular Volume 91, Mean Corpuscular Hemoglobin 27, Mean Corpuscular Hemoglobin Concent 30L, Red Cell Distribution Width 15.8H, Platelet Count 269, Mean Platelet Volume 8.8, Neutrophils (%) (Auto) 66, Lymphocytes (%) (Auto) 25, Monocytes (%) (Auto) 7, Eosinophils (%) (Auto) 2, Basophils (%) (Auto) 0, Neutrophils # (Auto) 4.9, Lymphocytes # (Auto) 1.9, Monocytes # (Auto) 0.5, Eosinophils # (Auto) 0.1, Basophils # (Auto) 0.0, Activated Partial Thromboplast Time 112H, Sodium Level 140, Potassium Level 3.9, Chloride Level 106, Carbon Dioxide Level 23, Anion Gap 11, Blood Urea Nitrogen 8, Creatinine 0.88, Estimat Glomerular Filtration Rate > 60, BUN/Creatinine Ratio 9, Glucose Level 134H, Calcium Level 8.6, Corrected Calcium 9.2, Phosphorus Level 3.6, Magnesium Level 1.6, Total Bilirubin 0.3, Aspartate Amino Transf (AST/SGOT) 11, Alanine Aminotransferase (ALT/SGPT) 8, Alkaline Phosphatase 96, Total Protein 6.1L, Albumin 3.3 12/25/18 11:37: Glucometer 155H Microbiology 12/24/18 Influenza Types A,B Antigen (PRABHU) - Final, Complete ECG Impression ECG Initial ECG Rhythm: Normal Sinus A/P-Cardiology Assessment/Admission Diagnosis bilateral large pulmonary embolism, RV dysfunction, RV dilatation, pulmonary hypertension, tachycardia, Left lower extremity DVT Plan this is a 68-year-old lady who presents with large pulmonary embolism with large occlusive thrombus in the main right pulmonary artery and moderate thrombus in the left pulmonary artery with evidence of RV strain including dilated RV with moderate to severe RV dysfunction. Acute pulmonary hypertension and evidence of pressure and volume overload with septal flattening and hyperdynamic LV. Sinus tachycardia. Although normal blood pressure; all of the above suggest significant pulmonary embolism. I spoke at length with the patient and recommended catheter directed thrombolytics as well as possible pulmonary intervention. There is also acute left lower extremity DVT and likely intervention is recommended. I discussed at length with the patient and all risks and complication were explained including the risk of fatal complication of 0.5 percent including intracranial bleeding. The patient understood and consented to the procedure. Thank you for your consultation. Please call me if you have any questions. Rosemarie Maguire MD, FACP, FACC, FSCAI, FHRS, CCDS Interventional Cardiology Cardiac Electrophysiology Vascular Medicine and Endovascular Interventions Clinical Quality Measures DVT/VTE Risk/Contraindication: Risk Factor Score Per Nursin RFS Level Per Nursing on Admit: 4+=Very High Catalina MAGUIRE MD Dec 25, 2018 13:27
[2018-12-25] MEDS ORDERED: TENECTEPLASE 5 MG in SYRINGE-IVPB 0 SYRINGE, WATER (STERILE) FOR INJECTION 4 ML IV ONE ×12 (14:45→15:15)
[2018-12-25] MEDS ORDERED: LIDOCAINE 1% INJ 20 ML 20 ML VIAL ONE (16:20)
[2018-12-25] MEDS ORDERED: HEParin (CATH LAB) 2,000 ML IV ONE (16:21)
[2018-12-25] MEDS ORDERED: fentaNYL INJECTION 100 MCG/2 ML AMP ONE ×2 (16:26→17:55)
[2018-12-25] MEDS ORDERED: MIDAZOLAM 5 MG/5 ML (VERSED) VIAL ONE (16:26)
--- NOTE | 2018-12-25 16:43 | NUR ---
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
[2018-12-25] MEDS ORDERED: NS IV 1000 ML 1,000 ML ONE (16:52)
[2018-12-25] MEDS ORDERED: NS IV 1000 ML 1,000 ML IV SCH ×2 (17:30→18:31)
[2018-12-25] MEDS ORDERED: MIDAZOLAM 2 MG/2 ML (VERSED) VIAL ONE (17:55)
--- NOTE | 2018-12-25 18:31 | Coronary Angiography & PCI ---
Peripheral Angio & Interv DATE OF SERVICE: 12/25/18 OPERATIVE REPORT - PULMONARY CATHETER DIRECTED THROMBOLYTICS HOSPITALIST: Dr. Jaclyn Davis MACHINE MAINTENANCE: Dr. Yinka Green PERFORMING INTERVENTIONALIST: Dr. Rosemarie Maguire INDICATION: large pulmonary embolism with significant RV strain. Large left lower extremity DVT. PREOPERATIVE INDICATION: large pulmonary embolism with significant RV strain. Large left lower extremity DVT. POSTOPERATIVE DIAGNOSIS: successful catheter directed thrombolytics into the right pulmonary artery. Right pulmonary artery balloon angioplasty Successful catheter directed, latex into the left popliteal vein. HISTORY: this is a 68-year-old lady who presented with worsening shortness of breath and was found to have large pulmonary embolism. Occlusive right pulmonary artery thrombus and also moderate thrombus in the left pulmonary artery. Significant RV strain demonstrated by dilated RV and moderate to severe dysfunction with evidence of pressure and volume overload on the LV with hyperdynamic LV function and tachycardia. Systolic blood pressure stable. Ultrasound demonstrated left lower extremity DVT. PROCEDURE PERFORMED: 1. Right femoral venogram. 2. IVC angiogram. 3. Right heart catheterization. 4. RV angiogram. 5. Selective left PA angiogram. 6. Main pulmonary artery angiogram. 7. Selective right pulmonary artery angiogram. 8. Catheter directed thrombolytics in the right pulmonary artery. 9. Balloon angioplasty of the right pulmonary artery. 10. Selective angiogram of the left femoral vein. 11. Selective angiogram of the left popliteal vein. 12. Catheter directed thrombolysis of the left popliteal and femoral vein. 13. Minx closure of the right femoral vein. SPECIMENS: None. ANESTHESIA: Conscious sedation. BLOOD LOSS: 20 mL. COMPLICATIONS: None. CONTRAST USED: 175 ml. FLUOROSCOPY DOSE: 398 Mgy. FLUOROSCOPY TIME: 19.9 minutes. ANTICOAGULATION: on Xarelto. DESCRIPTION OF PROCEDURE: The patient was brought to the medical laboratory technician after informed consent was taken. All the risks and complications were explained in detail. The patient was draped and prepped in the usual sterile fashion. Access was gained in the right femoral vein with a 7 [place]orran sheath. We advanced a pigtail catheter on the J-tipped wire and were able to advance into the left pulmonary artery. The wire was taken out and a selective left pulmonary angiogram was done which showed moderate burden off thrombus. The pigtail catheter was then placed in the right pulmonary artery and a selective angiogram was done which showed large occlusive PE. 10 mg of TNKase was given over 30 seconds. We then took an exchange length wire and placed the tip of the wire in the right pulmonary artery and the pigtail catheter was taken out. We then advanced an MP guide catheter into the right pulmonary artery. A Storq wire was placed in the mid branch of the right pulmonary artery. We then took a 6.0 x 40 mm balloon and did 1 balloon inflation at 6 sunil for 29 seconds. Post-angiogram showed some recanalization however large pulmonary embolism was still present. Post-angiogram was done which showed no vascular complication. We then placed the catheter in the main pulmonary artery and angiogram was done. Right heart catheterization was pe rformed. We then placed a pigtail catheter in the distal IVC and an angiogram was done. We then took the rim catheter and performed a crossover into the left iliac vein. We then advanced a rim catheter still the common femoral vein. The rim catheter was taken out and we took a straight 100 cm catheter. With the wire we were able to advance the straight tipped catheter into the left popliteal vein. We performed selective angiogram of the left femoral vein. Once the catheter was advanced into the popliteal vein and another selective angiogram was done. Angiogram showed almost occlusive DVT starting from the distal femoral vein into the popliteal vein. We then gradually injected 10 mg of TNKase while pulling back the straight catheter from the popliteal vein into the femoral vein. We waited for 5 minutes and post-angiogram showed some recanalization. We then of the straight tipped catheter out and took a selective angiogram of the right femoral vein with follow-through into the IVC. No DVT was noted in the right femoral vein and the IVC. Minx closure was done of the right femoral vein. FINDINGS: large occlusive thrombus in the right pulmonary artery. Moderate thrombus in the left pulmonary artery. No DVT in the right femoral vein and the IVC. Large occlusive DVT in the left femoral vein and the popliteal vein. Left PA pressure 60/28 mmHg. Right PA pressure 66/13 mmHg. RV pressure 63/11 mmHg. RVEDP 21 mmHg. Right atrial pressure 17 mmHg. RV angiogram showed dilated RV with decreased RV systolic function. CONCLUSION: 1. Large occlusive thrombus in the right pulmonary artery and moderate thrombus in the left pulmonary artery, status post catheter directed thrombolytics in the right pulmonary artery and balloon angioplasty. 2. Catheter directed thrombolytics in the left popliteal and femoral vein. 3. Continue high dose Xarelto as per Dr. Green and Dr. Davis. Rosemarie Maguire MD, FACP, FACC, [facility] Vascular Medicine and Endovascular Interventions Catalina MAGUIRE MD Dec 25, 2018 18:31
--- NOTE | 2018-12-25 18:31 | Cardiac Procedure Note-CS/ASA ---
Pre-Procedure Note Pre-Op Procedure Note H&P Reviewed The H&P was reviewed, patient examined and no changes noted. Date H&P Reviewed: Dec 25, 2018 Time H&P Reviewed: 14:00 Conscious Sedation Pre-Proced Time 14:00 ASA Score 3 For ASA 3 and 4: Consider anesthesia and medical clearance. Also, for patients with a history of failed moderate sedation consider anesthesia. Airway Lungs Heart ASA score ASA 1: a normal healthy patient ASA 2: a patient with a mild systemic disease (mid diabetes, controlled hypertension, obesity ASA 3: a patient with a severe systemic disease that limits activity (angina, COPD, prior Myocardial infarction) ASA 4: a patient with an incapacitating disease that is a constant threat to life (CHF, renal failure) ASA 5: a moribund patient not expected to survive 24 hrs. (ruptured aneurysm) ASA 6: a declared brain- patient whose organs are being harvested. For emergent operations, add the letter E after the classification Mallampati Classification Grade 1 Sedation Plan Analgesia, Amnesia, Plan communicated to team members, Discussed options with patient/fam, Discussed risks with patient/fam The patient is an appropriate candidate to undergo the planned procedure, sedation, and anesthesia. The patient immediately re-assessed prior to indication. Catalina LANZA MD Dec 25, 2018 18:31
[2018-12-25] MEDS ORDERED: PATIENT MAY USE OWN MEDS, ALL PO SCH (18:45)
[2018-12-26] VITALS (11 sets, daily range): BP systolic 137–169; BP diastolic 72–90
--- NOTE | 2018-12-26 04:04 | Pulmonary Progress Note ---
Subjective Time Seen by a Provider: 05:50 Subjective/Events-last exam PT feels improved s/p thrombolysis. Sepsis Event Evaluation Height, Weight, BMI Height: 5'3.00" Weight: 280lbs. 0.0oz. 127.372798rg; 46.00 BMI Method: Exam Exam Vital Signs Date Time Temp Pulse Resp B/P (MAP) Pulse Ox O2 Delivery O2 Flow Rate FiO2 12/26/18 03:21 87 16 161/90 (113) 95 Nasal Cannula 2.00 12/26/18 03:17 Room Air 12/26/18 02:00 71 21 137/72 (93) 98 Nasal Cannula 2.00 12/26/18 01:02 80 152/75 (100) 90 Nasal Cannula 2.00 12/26/18 01:00 80 12/26/18 00:00 84 15 145/74 (97) 93 Nasal Cannula 2.00 12/26/18 00:00 36.4 12/26/18 00:00 Room Air 12/25/18 23:00 94 22 152/80 (104) 96 Nasal Cannula 2.00 12/25/18 22:25 85 17 96 Nasal Cannula 2.00 12/25/18 22:00 86 10 144/74 (97) 90 Room Air 12/25/18 21:00 75 11 138/72 (94) 93 Room Air 12/25/18 20:45 78 11 167/81 (109) 94 Room Air 12/25/18 20:30 84 21 165/83 (110) 95 Room Air 12/25/18 20:15 85 17 166/80 (108) 96 Room Air 12/25/18 20:00 80 24 158/79 (105) 95 Room Air 12/25/18 20:00 Room Air 12/25/18 19:45 81 17 149/77 (101) 91 Room Air 12/25/18 19:30 86 14 145/77 (99) 91 Room Air 12/25/18 19:15 86 21 156/82 (106) 90 Room Air 12/25/18 19:01 87 12/25/18 19:00 36.8 85 19 149/99 (116) 93 Room Air 12/25/18 16:00 37.0 91 18 160/89 (112) 97 Room Air 12/25/18 13:00 87 12/25/18 11:35 37.6 90 20 158/74 (102) 94 Room Air 12/25/18 08:45 37.5 90 20 148/65 (92) 93 Room Air 12/25/18 08:00 Nasal Cannula 2.00 12/25/18 07:57 94 Room Air 12/25/18 07:00 81 22 133/70 (91) 94 Nasal Cannula 2.00 12/25/18 07:00 81 12/25/18 07:00 36.0 12/25/18 06:00 75 22 137/67 (90) 98 Nasal Cannula 2.00 12/25/18 05:00 84 20 189/89 (122) 97 Nasal Cannula 2.00 I & O 12/26/18 07:00 Intake Total 1920 ml Output Total 600 ml Balance 1320 ml Height & Weight Height: 5'3.00" Weight: 280lbs. 0.0oz. 127.860771ta; 46.00 BMI Method: General Appearance: No Apparent Distress, WD/WN, Obese HEENT: Moist Mucous Membranes; No Scleral Icterus (L), No Scleral Icterus (R) Neck: Supple; No JVD, No Thyromegaly Respiratory: Lungs Clear, No Accessory Muscle Use, No Respiratory Distress, Decreased Breath Sounds Cardiovascular: Regular Rate, Rhythm, No Murmur Capillary Refill: Less Than 3 Seconds Peripheral Pulses: 2+ Dorsalis Pedis (R), 2+ Left Dors-Pedis (L), 2+ Radial Pulses (R), 2+ Radial Pulses (L) Gastrointestinal: normal bowel sounds, non tender, soft Extremity: Calf Tenderness (mild on left), Swelling (L>R, non pitting) Neurologic/Psychiatric: Alert, Oriented x3, Normal Mood/Affect; No Aphasia, No Facial Droop Skin: Normal Color, Warm/Dry Lymphatic: No Adenopathy Results Lab Laboratory Tests 12/24/18 17:02 12/24/18 23:20 12/25/18 04:01 Assessment/Plan Assessment/Plan unprovoked PEs with LLE DVT s/p intravascular TPA with mild hypoxia without hypotension on admission - Chest CT with contrast = showed b/l PEs -Labs pending - Xarelto - - Unprovoked PEs - At least 6 mo of treatment and strong recommendation for life long anticoagulation unless contraindicated. CHANA - follow with outpatient sleep study HTN -monitor hypothyroidism KHANG ABBASI DO Dec 26, 2018 04:04
[2018-12-26 04:57] LABS: BASOPHILS % (AUTO) 0 % (0-10); EOSINOPHILS # (AUTO) 0.1 10^3/uL (0.0-0.3); EOSINOPHILS % (AUTO) 1 % (0-10); HEMATOCRIT 32 % (35-52); HEMOGLOBIN 9.7 G/DL (11.5-16.0); LYMPHOCYTES % (AUTO) 22 % (12-44); MEAN CORPUSCULAR HEMOGLOBIN 28 PG (25-34); MEAN CORPUSCULAR HGB CONC 30 G/DL (32-36); MEAN CORPUSCULAR VOLUME 91 FL (80-99); MEAN PLATELET VOLUME 9.3 FL (7.4-10.4); MONOCYTES # (AUTO) 0.7 X 10^3 (0.0-1.0); MONOCYTES % (AUTO) 8 % (0-12); NEUTROPHILS # (AUTO) 6.1 X 10^3 (1.8-7.8); NEUTROPHILS % (AUTO) 68 % (42-75); PLATELET COUNT 298 10^3/uL (130-400)
[2018-12-26 05:16] LABS: CALCIUM 9.4 MG/DL (8.5-10.1); CREATININE SERUM 1.17 MG/DL (0.60-1.30); MAGNESIUM 1.9 MG/DL (1.6-2.4); POTASSIUM 4.1 MMOL/L (3.6-5.0)
[2018-12-26] MEDS: RIVAROXABAN 15 MG TABLET (XARELTO) PO SCH ×2 (06:12→20:49)
[2018-12-26] MEDS: POTASSIUM CL 10MEQ/50ML IVPB 50 ML IV SCH (06:14)
[2018-12-26] MEDS: KCL 20 MEQ TAB (K-DUR) PO SCH (06:15)
[2018-12-26] MEDS: MAGNESIUM 1 GM/100 ML IVPB 100 ML IV SCH (06:15)
--- NOTE | 2018-12-26 07:15 | Diagnostic Imaging Report ---
Indication: Shortness of air. Followup. Comparison: 12/25/2018 Findings: Single frontal radiographic view of the chest was obtained and demonstrates stable moderate cardiomegaly. Pulmonary vasculature is within normal limits. Lungs are clear. There is no focal consolidation, large effusion, nor pneumothorax. Osseous structures show no gross acute abnormalities. Impression: 1. Cardiomegaly, but no evidence of overt failure. Dictated by: Dictated on workstation # [id number]
[2018-12-26] MEDS: lisINopril 20 MG (PRINIVIL) TABLET PO SCH (07:54)
[2018-12-26] MEDS: meTOprolol TARTRATE 25 MG (LOPRESSOR) TABLET PO SCH ×2 (07:54→20:49)
--- NOTE | 2018-12-26 09:37 | Progress Note - Hospitalist ---
Subjective HPI/CC On Admission Date Seen by Provider: Dec 26, 2018 Time Seen by Provider: 08:00 Pt is a 68yoCF with a PMH of HTN, IDDMII, HLD who presented to the ER with a CC of shortness of breath. She states her symptoms started 1 1/2 weeks ago when she awoke in the night with chest pain, diaphoretic, and vomited. She states since then she has had dyspnea on exertion and chest soreness. She attributed the soreness to vomited. She called was seen by urgent care on 12/23 and they advised her to seek care in the ER to evaluate her heart. She went home and then presented the next day (yesterday) when symptoms did not improve as she has a scheduled vacation for 12/28. D-dimer was found to be elevated and she underwent CTA which revealed massive bilateral pulmonary emboli. She was admitted to the ICU on a heparin gtt. This morning she states she is feeling well. She has noticed bilateral leg swelling with left worse than right. Otherwise she denies any complaints. She denies a history of cancer, she does not smoke or take hormones. She has no history of VTE nor any family history of VTE. Subjective/Events-last exam Pt reports feeling better today. Breathing improved. Doing well follow cath yesterday. Objective Exam Vital Signs Vital Signs Date Time Temp Pulse Resp B/P (MAP) Pulse Ox O2 Delivery O2 Flow Rate FiO2 12/26/18 13:00 36.7 81 20 162/76 (104) 94 Room Air 12/26/18 10:00 2.00 12/24/18 22:54 21 Capillary Refill : Less Than 3 Seconds General Appearance: No Apparent Distress, WD/WN Respiratory: Lungs Clear, No Respiratory Distress Cardiovascular: Regular Rate, Rhythm, No Murmur Gastrointestinal: Normal Bowel Sounds, Non Tender, Soft Extremity: Swelling (left lower extremity) Neurologic/Psychiatric: Alert, Oriented x3 Results/Procedures Lab Laboratory Tests 12/26/18 04:40 Patient resulted labs reviewed. Imaging: Reviewed Imaging Report Assessment/Plan Assessment and Plan Assess & Plan/Chief Complaint Bilateral Pulmonary Emboli Right heart Strain on echo s/p CDT 12/25 Pulmonology and Cardiology consulted, appreciate recs Continue Xarelto Repeat Echo tomorrow Thrombolytic precautions Discussed with Dr Maguire who recommends continued admission given late a dministration of thrombolytics HTN Resume home medications IDDMII Hold metformin due to contrast Continue Levemir Diagnosis/Problems Diagnosis/Problems (1) Bilateral pulmonary embolism Status: Acute (2) Essential (primary) hypertension Status: Chronic (3) Pulmonary hypertension Status: Acute (4) Diabetes mellitus Status: Chronic Qualifiers: Diabetes mellitus type: type 2 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 Diabetes mellitus complication status: with ophthalmic complications Diabetes mellitus complication detail: with cataract Qualified Codes: E11.36 - Type 2 diabetes mellitus with diabetic cataract; Z79.4 - MCC (current) use of insulin (5) Right ventricular dysfunction Status: Acute (6) DVT (deep venous thrombosis) Status: Acute Qualifiers: DVT location: lower extremity Affected thrombotic vein of extremity: femoral Chronicity: acute Laterality: left Qualified Codes: I82.412 - Acute embolism and thrombosis of left femoral vein (7) Anemia Status: Acute Qualifiers: Anemia type: iron deficiency Iron deficiency anemia type: unspecified iron deficiency Qualified Codes: D50.9 - Iron deficiency anemia, unspecified Clinical Quality Measures DVT/VTE Risk/Contraindication: Risk Factor Score Per Nursin RFS Level Per Nursing on Admit: 4+=Very High JANNETH MURPHY MD Dec 26, 2018 9:37 am
--- NOTE | 2018-12-26 11:39 | NUR ---
Report called to YRN JARRELL who will assume pt care on arrival. Pt VSS at time of transfer. Personal belongings with pt at time of transfer. Pt transported via wheelchair by HERMINIO Cooley. Family at bedside at time of transfer.
--- NOTE | 2018-12-26 13:05 | Cardiology Progress Note ---
Cardiology SOAP Progress Note Subjective: significantly improved shortness of breath. Objective: I&O/Vital Signs 12/27/18 12/27/18 12/27/18 12/27/18 01:00 04:00 07:00 08:00 Temp 36.6 36.4 Pulse 75 73 80 76 Resp 18 20 B/P (MAP) 167/80 (109) 150/80 (103) Pulse Ox 97 97 O2 Delivery Room Air Room Air 12/27/18 12/27/18 08:00 10:02 Pulse Ox 95 O2 Delivery Room Air Room Air 12/27/18 00:00 Intake Total 900 ml Balance 900 ml Weight (Pounds): 280 Weight (Ounces): 0.0 Weight (Calculated Kilograms): 127.357365 Constitutional: appears stated age, AAO x 3; No apparent distress; well- developed, well-nourished Respiratory: No accessory muscle use, No respiratory distress, No chest tender, No chest expansion is symmetric; chest is bilaterally symmetric; No lungs clear to percussion; lungs clear to auscultation; No crackles, No rhonchi, No rales, No stridor, No wheezing, No pleural rub, No other Cardiovascular: regular rate-rhythm, S1 and S2 Gastrointestional: soft, audible bowel sounds; No spleenomegaly Extremities: other (Left lower extremity swelling.); No clubbing, No cyanosis, No significant edema Neurologic/Psychiatric: no motor/sensory deficits, alert, normal mood/affect, oriented x 3, power is 5/5 both on sides Skin: No rash, No ulcerations Results/Procedures: Labs Laboratory Tests 12/26/18 16:32: Glucometer 133H 12/26/18 22:05: Glucometer 171H 12/27/18 05:21: White Blood Count 6.3, Red Blood Count 3.35L, Hemoglobin 9.1L, Hematocrit 31L, Mean Corpuscular Volume 92, Mean Corpuscular Hemoglobin 27, Mean Corpuscular Hemoglobin Concent 30L, Red Cell Distribution Width 16.0H, Platelet Count 284, Mean Platelet Volume 9.4, Neutrophils (%) (Auto) 67, Lymphocytes (%) (Auto) 23, Monocytes (%) (Auto) 8, Eosinophils (%) (Auto) 2, Basophils (%) (Auto) 0, Neutrophils # (Auto) 4.2, Lymphocytes # (Auto) 1.4, Monocytes # (Auto) 0.5, Eosinophils # (Auto) 0.1, Basophils # (Auto) 0.0, Sodium Level 141, Potassium Level 3.8, Chloride Level 105, Carbon Dioxide Level 25, Anion Gap 11, Blood Urea Nitrogen 10, Creatinine 0.96, Estimat Glomerular Filtration Rate 58, BUN/Creatinine Ratio 10, Glucose Level 105, Calcium Level 9.2, Phosphorus Level 3.9, Magnesium Level 1.8 12/27/18 05:30: Glucometer 121H 12/27/18 11:17: Glucometer 168H Microbiology 12/24/18 MRSA Screen - Final, Complete MRSA not isolated A/P: Assessment/Dx: bilateral large pulmonary embolism, RV dysfunction, RV dilatation, pulmonary hypertension, tachycardia, Left lower extremity DVT Plan: this is a 68-year-old lady who presents with large pulmonary embolism with large occlusive thrombus in the main right pulmonary artery and moderate thrombus in the left pulmonary artery with evidence of RV strain including dilated RV with moderate to severe RV dysfunction. Acute pulmonary hypertension and evidence of pressure and volume overload with septal flattening and hyperdynamic LV. Sinus tachycardia. Although normal blood pressure; all of the above suggest significant pulmonary embolism. I spoke at length with the patient and recommended catheter directed thrombolytics as well as possible pulmonary intervention. There is also acute left lower extremity DVT and likely intervention is recommended. I discussed at length with the patient and all risks and complication were explained including the risk of fatal complication of 0.5 percent including intracranial bleeding. The patient understood and con sented to the procedure. catheter directed thrombolysis done on 12/25/2018 with right pulmonary artery angioplasty as well. Left deep femoral vein/popliteal vein catheter directed thrombolysis done as well. Patient has improved significantly clinically with significantly improved shortness of breath. Will repeat an echocardiogram tomorrow. Continue high dose oral anticoagulation. I also spoke to the family and patient and discussed that since it is unprovoked DVT and PE we will need workup for hypercoagulability and likely require long-term oral anti- coagulation. Thank you for your consultation. Please call me if you have any questions. Rosemarie Maguire MD, FACP, FACC, FSCAI, FHRS, CCDS Interventional Cardiology Cardiac Electrophysiology Vascular Medicine and Endovascular Interventions Catalina MAGUIRE MD Dec 26, 2018 13:05
--- NOTE | 2018-12-26 13:50 | NUR ---
Report received from Josie POOL. Patient sitting in chair in room at this time, call light within reach. Will assume care of patient.
--- NOTE | 2018-12-26 16:03 | Physical Therapy Progress Note ---
Therapy Progress Note Patient is up independently in hallway with family and declined PT intervention. Dr. Davis notified. Thank you for this referral. 1 visit ELISEO YOUNG PT Dec 26, 2018 16:03
[2018-12-26] MEDS: inSUlin ASPART (NovoLOG) 1 UNIT/0.01 ML (CHARGE PER UNIT) SC SCH ×2 (16:53→22:08)
--- NOTE | 2018-12-26 22:47 | CONSULTATION REPORT ---
DATE OF SERVICE: 12/26/2018 REFERRING PHYSICIAN: Ariana Quarles DO The patient is admitted to room 411. IMPRESSION: 1. A 68-year-old female with extensive left lower extremity DVT as well as bilateral PE with right heart strain. 2. Status post catheter-directed thrombolysis of bilateral pulmonary arteries as well as left lower extremity. 3. Currently on anticoagulation with Xarelto. RECOMMENDATIONS: 1. Continue higher dose of rivaroxaban for 3 weeks and switched to regular dose. 2. Agree with factor V and factor II mutation analysis. 3. [facility] approximately 1 month to review the pending lab work. 4. Continue anticoagulation for 6 months. Based on the pending results and other risk factors, we will decide whether the patient needs prolonged anticoagulation. BRIEF HISTORY: The patient is a 68-year-old female who started feeling sick during the Day weekend. She was out all day Saturday at [facility] in [facility] and ambulated more than usual. That night, she started becoming sick with shortness of breath, nausea and vomiting. By Saturday, she also complained of left lower extremity swelling. She took rest for the next several days, but as her symptoms continued to worsen, she contacted her primary physician and was instructed further evaluation. She waited a few days before getting to the emergency room and was found to have extensive bilateral PEs with right heart strain as well as left lower extremity extensive DVT. She was admitted to the hospital and underwent catheter-directed thrombolysis both pulmonary arteries as well as left lower extremity. Hematology consultation was requested for further evaluation for thrombophilia. The patient is a known smoker. She is not taking any hormone replacement therapy. She denied taking any [id number] supplements within the past month. PAST MEDICAL HISTORY: Significant for hypertension since last 10 years and has been on treatment diabetes mellitus type 2 insulin requiring since the last few years. Hypercholesterolemia for which she is on treatment. PAST SURGICAL HISTORY: Include cholecystectomy a few years ago. 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 She is not and has no children. She lives by herself in [place], [place], but has several siblings who live close by who check on her regularly. She is a nonsmoker. She has not used alcohol regularly or other recreational drugs. FAMILY HISTORY: Significant for maternal grandfather with CVA in his 50s. No other history of thrombosis that the patient knows of. No malignancies in the family that the patient knows of. PHYSICAL EXAMINATION: GENERAL: Today showed an elderly female, obese, awake and oriented, in no acute distress. VITAL SIGNS: Temperature was 36.7 degrees centigrade, pulse rate of 84, respirations 20, blood pressure 162/76 with oxygen saturation of 94% on room air. HEENT: Normocephalic, extraocular muscles intact, conjunctivae pink, oral mucosa moist. NECK: Supple, with no JVD. No cervical, supraclavicular or axillary lymphadenopathy palpable. CHEST: Symmetrical. LUNGS: Fairly clear to auscultation without wheezes or rales. CARDIOVASCULAR: Regular in rate and rhythm with a grade II early systolic murmur. ABDOMEN: Obese, soft, nontender with no hepatosplenomegaly or other masses palpable. EXTREMITIES: Showed 2+ edema of the left lower extremity with mild tenderness in the calf. Rest of the extremities with no edema. NEUROLOGIC: Grossly intact without focal motor deficits. LABORATORY DATA: CBC done today showed WBC 9.0, hemoglobin 9.7, MCV 91, platelet count 298,000 with neutrophil count 6.1 and lymphocyte count 2.0. BMP done today showed normal electrolytes. BUN was 10 and creatinine 1.17 with GFR [address] angiogram of chest done on 12/24/2018 showed large burden of extensive bilateral pulmonary emboli with features of pulmonary hypertension and right ventricular strain. Venous Doppler studies done on 12/25/2018 showed extensive thrombosis of left lower extremity within superficial femoral vein, popliteal vein anterior and posterior tibial veins on the left as well as within the greater saphenous vein on the right. Thank you for allowing me to participate in this patient's care. I will follow the patient with you and make appropriate recommendations. Job ID: [id number] DocumentID: [id number] Dictated Date: 12/26/2018 16:07:17 Boarding Kennel Or Cattery Operator Date: 12/26/2018 22:46:42 Dictated By: DESTINEE VALDEZ MD [facility] CENTERBertin
[2018-12-27] VITALS: BP 155/72
[2018-12-27 04:00] VITALS: BP 167/80
[2018-12-27] MEDS: RIVAROXABAN 15 MG TABLET (XARELTO) PO SCH (06:26)
[2018-12-27] MEDS: POTASSIUM CL 10MEQ/50ML IVPB 50 ML IV SCH ×2 (06:26→08:08)
[2018-12-27] MEDS: MAGNESIUM 1 GM/100 ML IVPB 100 ML IV SCH ×2 (06:27→08:08)
[2018-12-27] MEDS ORDERED: LEVOTHYROXINE 125 MCG (LEVOTHROID) TABLET PO SCH (06:30)
[2018-12-27] MEDS: inSUlin ASPART (NovoLOG) 1 UNIT/0.01 ML (CHARGE PER UNIT) SC SCH ×2 (07:36→11:43)
[2018-12-27 07:37] LABS: BASOPHILS % (AUTO) 0 % (0-10); EOSINOPHILS # (AUTO) 0.1 10^3/uL (0.0-0.3); EOSINOPHILS % (AUTO) 2 % (0-10); HEMATOCRIT 31 % (35-52); HEMOGLOBIN 9.1 G/DL (11.5-16.0); LYMPHOCYTES # (AUTO) 1.4 X 10^3 (1.0-4.0); LYMPHOCYTES % (AUTO) 23 % (12-44); MEAN CORPUSCULAR HEMOGLOBIN 27 PG (25-34); MEAN CORPUSCULAR HGB CONC 30 G/DL (32-36); MEAN CORPUSCULAR VOLUME 92 FL (80-99); MEAN PLATELET VOLUME 9.4 FL (7.4-10.4); MONOCYTES # (AUTO) 0.5 X 10^3 (0.0-1.0); MONOCYTES % (AUTO) 8 % (0-12); NEUTROPHILS # (AUTO) 4.2 X 10^3 (1.8-7.8); NEUTROPHILS % (AUTO) 67 % (42-75); PLATELET COUNT 284 10^3/uL (130-400); WHITE BLOOD COUNT 6.3 10^3/uL (4.3-11.0)
[2018-12-27 08:00] VITALS: BP 150/80
[2018-12-27 08:07] LABS: CALCIUM 9.2 MG/DL (8.5-10.1); CREATININE SERUM 0.96 MG/DL (0.60-1.30); MAGNESIUM 1.8 MG/DL (1.6-2.4); PHOSPHORUS 3.9 MG/DL (2.3-4.7); POTASSIUM 3.8 MMOL/L (3.6-5.0)
[2018-12-27] MEDS: KCL 20 MEQ TAB (K-DUR) PO SCH (08:09)
--- NOTE | 2018-12-27 08:21 | Pulmonary Progress Note ---
Subjective Time Seen by a Provider: 08:20 Subjective/Events-last exam PT complains of only mild back pain. She relates this to the bed. Sepsis Event Evaluation Height, Weight, BMI Height: 5'3.00" Weight: 280lbs. 0.0oz. 127.901132pi; 46.00 BMI Method: Exam Exam Vital Signs Date Time Temp Pulse Resp B/P (MAP) Pulse Ox O2 Delivery O2 Flow Rate FiO2 12/27/18 04:00 36.6 73 18 167/80 (109) 97 Room Air 12/27/18 01:00 75 12/27/18 00:00 37.0 80 16 155/72 (99) 95 Room Air 12/26/18 20:50 Room Air 12/26/18 19:00 88 12/26/18 15:53 36.9 91 18 169/81 (110) 97 Room Air 12/26/18 13:00 84 12/26/18 13:00 36.7 81 20 162/76 (104) 94 Room Air 12/26/18 11:00 73 14 160/90 (113) 95 Nasal Cannula 2.00 12/26/18 10:00 68 18 150/73 (98) 94 Nasal Cannula 2.00 I & O 12/27/18 06:59 Intake Total 1250 ml Balance 1250 ml Height & Weight Height: 5'3.00" Weight: 280lbs. 0.0oz. 127.881603rb; 46.00 BMI Method: General Appearance: No Apparent Distress, WD/WN HEENT: Moist Mucous Membranes; No Scleral Icterus (L), No Scleral Icterus (R) Neck: Supple; No JVD, No Thyromegaly Respiratory: Lungs Clear, No Respiratory Distress Cardiovascular: Regular Rate, Rhythm, No Murmur Capillary Refill: Less Than 3 Seconds Peripheral Pulses: 2+ Dorsalis Pedis (R), 2+ Left Dors-Pedis (L), 2+ Radial Pulses (R), 2+ Radial Pulses (L) Gastrointestinal: normal bowel sounds, non tender, soft Extremity: Swelling (left lower extremity) Neurologic/Psychiatric: Alert, Oriented x3 Skin: Normal Color, Warm/Dry Lymphatic: No Adenopathy Results Lab Laboratory Tests 12/26/18 04:40 12/27/18 05:21 Assessment/Plan Assessment/Plan unprovoked PEs with LLE DVT s/p intravascular TPA with mild hypoxia without hypotension on admission - Chest CT with contrast = showed b/l PEs -Labs pending - Xarelto - - Unprovoked PEs - At least 6 mo of treatment and strong recommendation for life long anticoagulation unless contraindicated. CHANA - follow with outpatient sleep study HTN -monitor hypothyroidism Pt is ok for discharge from pulmonary standpoint with Xarelto. I will f/u with her in 1-2 wks as out pt. KHANG ABBASI DO Dec 27, 2018 08:21
[2018-12-27] MEDS: lisINopril 20 MG (PRINIVIL) TABLET PO SCH (08:36)
[2018-12-27] MEDS: meTOprolol TARTRATE 25 MG (LOPRESSOR) TABLET PO SCH (08:36)
[2018-12-27] MEDS ORDERED: amLODIPine 5 MG (NORVASC) TAB PO SCH (09:00)
--- NOTE | 2018-12-27 09:53 | Discharge Summary ---
Diagnosis/Chief Complaint Date of Admission Dec 24, 2018 at 8:20 pm Date of Discharge Admission Diagnosis Bilateral PE Primary Care RobinaNickolasmarcus SMITH Discharge Diagnosis (1) Bilateral pulmonary embolism Status: Acute (2) Essential (primary) hypertension Status: Chronic (3) Pulmonary hypertension Status: Acute (4) Diabetes mellitus Status: Chronic (5) Right ventricular dysfunction Status: Acute (6) DVT (deep venous thrombosis) Status: Acute (7) Anemia Status: Acute Discharge Summary Procedures/Consulations Dr Green- Pulalicia Maguire- Cardiology Discharge Physical Exam Allergies: Coded Allergies: No Known Drug Allergies (Unverified , 08/06/08) Vitals & I&Os Vital Signs Date Time Temp Pulse Resp B/P (MAP) Pulse Ox O2 Delivery O2 Flow Rate FiO2 12/27/18 10:02 95 Room Air 12/27/18 08:00 36.4 76 20 150/80 (103) 12/26/18 11:00 2.00 12/24/18 22:54 21 General Appearance: No Apparent Distress, WD/WN, Obese Cardiovascular: Regular Rate, Rhythm, No Murmur Gastrointestinal: Normal Bowel Sounds, Soft Neurologic/Psychiatric: Alert, Oriented x3, Normal Mood/Affect Hospital Course Pt was admitted due to bilateral (right> left) pulmonary emboli to the ICU on a heparin gtt. Lower extremity doppler and echocardiogram were done which revealed significant occlusive thrombus in the LLE and right ventricular dysfunction with pulmonary hypertension. Due to this Cardiology was consulted to evaluate for possible catheter directed thrombolytics. After long discussion of the risk and the benefits she consented to CDT. She underwent cath on 12/[address] Maguire. Due to the contrast load from the CTA and the cath metformin was held. She tolerated the procedure well and symptoms improved. Given this was such a large PE that was unprovoked Hematology was consulted. She is to continue on Xarelto for at least 6 months while work up continues for underlying clotting disorder. She was discharged home in stable condition with strict return precautions. Labs (last 24 hrs) Laboratory Tests 12/26/18 16:32: Glucometer 133H 12/26/18 22:05: Glucometer 171H 12/27/18 05:21: White Blood Count 6.3, Red Blood Count 3.35L, Hemoglobin 9.1L, Hematocrit 31L, Mean Corpuscular Volume 92, Mean Corpuscular Hemoglobin 27, Mean Corpuscular Hemoglobin Concent 30L, Red Cell Distribution Width 16.0H, Platelet Count 284, Mean Platelet Volume 9.4, Neutrophils (%) (Auto) 67, Lymphocytes (%) (Auto) 23, Monocytes (%) (Auto) 8, Eosinophils (%) (Auto) 2, Basophils (%) (Auto) 0, Neutrophils # (Auto) 4.2, Lymphocytes # (Auto) 1.4, Monocytes # (Auto) 0.5, Eosinophils # (Auto) 0.1, Basophils # (Auto) 0.0, Sodium Level 141, Potassium Level 3.8, Chloride Level 105, Carbon Dioxide Level 25, Anion Gap 11, Blood Urea Nitrogen 10, Creatinine 0.96, Estimat Glomerular Filtration Rate 58, BUN/Creatinine Ratio 10, Glucose Level 105, Calcium Level 9.2, Phosphorus Level 3.9, Magnesium Level 1.8 12/27/18 05:30: Glucometer 121H 12/27/18 11:17: Glucometer 168H Microbiology 12/24/18 MRSA Screen - Final, Complete MRSA not isolated Patient resulted labs reviewed. Pending Labs Laboratory Tests 12/27/18 05:21: White Blood Count 6.3, Red Blood Count 3.35, Hemoglobin 9.1, Hematocrit 31, Mean Corpuscular Volume 92, Mean Corpuscular Hemoglobin 27, Mean Corpuscular Hemoglobin Concent 30, Red Cell Distribution Width 16.0, Platelet Count 284, Mean Platelet Volume 9.4, Neutrophils (%) (Auto) 67, Lymphocytes (%) (Auto) 23, Monocytes (%) (Auto) 8, Eosinophils (%) (Auto) 2, Basophils (%) (Auto) 0, Neutrophils # (Auto) 4.2, Lymphocytes # (Auto) 1.4, Monocytes # (Auto) 0.5, Eosinophils # (Auto) 0.1, Basophils # (Auto) 0.0, Sodium Level 141, Potassium Level 3.8, Chloride Level 105, Carbon Dioxide Level 25, Anion Gap 11, Blood Urea Nitrogen 10, Creatinine 0.96, Estimat Glomerular Filtration Rate 58, BUN/Creatinine Ratio 10, Glucose Level 105, Calcium Level 9.2, Phosphorus Level 3.9, Magnesium Level 1.8 12/27/18 05:30: Glucometer 121 12/27/18 11:17: Glucometer 168 Imaging: Reviewed Imaging Report Discussion & Recommendations Discharge Planning: >30 minutes discharge planning Discharge Home Medications: Active Scripts Active Xarelto Starter Pack (Rivaroxaban) 1 Each Tab.ds.pk 1 Each PO UD 15mg by mouth twice daily x 21 days then 20mg by mouth daily Reported Levemir Flextouch (Insulin Detemir) 100 Unit/1 Ml Insuln.pen 30 Units SC HS Metformin HCl 500 Mg Tablet 500 Mg PO BID Amlodipine Besylate 5 Mg Tablet 5 Mg PO DAILY Atorvastatin Calcium 40 Mg Tablet 40 Mg PO DAILY Vitamin D3 (Cholecalciferol (Vitamin D3)) 5,000 Unit Tablet 5,000 Unit PO DAILY Benazepril HCl 20 Mg Tablet 20 Mg PO DAILY Levothyroxine Sodium 125 Mcg Tablet 125 Mcg PO DAILY Instructions to patient/family Please see electronic discharge instructions given to patient. Clinical Quality Measures DVT/VTE Risk/Contraindication: Risk Factor Score Per Nursin RFS Level Per Nursing on Admit: 4+=Very High Copy Copies To 1: ARIANA BABB DO Problem Qualifiers (1) Diabetes mellitus: Diabetes mellitus type: type 2 Diabetes mellitus [employer] insulin use: with [employer] use Diabetes mellitus complication status: with ophthalmic complications Diabetes mellitus complication detail: with cataract Qualified Codes: E11.36 - Type 2 diabetes mellitus with diabetic cataract; Z79.4 - jail (current) use of insulin (2) DVT (deep venous thrombosis): DVT location: lower extremity Affected thrombotic vein of extremity: femoral Chronicity: acute Laterality: left Qualified Codes: I82.412 - Acute embolism and thrombosis of left femoral vein (3) Anemia: Anemia type: iron deficiency Iron deficiency anemia type: unspecified iron deficiency Qualified Codes: D50.9 - Iron deficiency anemia, unspecified JANNETH MURPHY MD Dec 27, 2018 9:53 am
--- NOTE | 2018-12-27 09:57 | Discharge Inst-Simple/Standard ---
Discharge Inst-Standard Reconcile Patient Problems Problems Reviewed?: Yes Discharge Medications New, Converted or Re-Newed RX: Transmitted to Pharmacy Patient Instructions/Follow Up Plan of Care/Instructions/FU: Please continue to take your medications as written. Please follow up with your PCP in the next week to follow up this hospital stay. Please see Dr Green in 2 weeks, Dr Maguire in 2 weeks, and Dr Christianson in 1 month. Activity as Tolerated: Yes Discharge Diet: ADA Diet Return to The Hospital For: Chest pain, shortness of breath, bleeding, falls, worsening pain or swelling in your legs, if you feel you are getting worse. JANNETH MURPHY MD Dec 27, 2018 9:57 am
[2018-12-27] MEDS ORDERED: RIVA1TAB PO (09:58)
[2018-12-27 12:00] VITALS: BP 137/79
--- NOTE | 2018-12-27 12:44 | Cardiology Progress Note ---
Cardiology SOAP Progress Note Subjective: significantly improved shortness of breath. Objective: I&O/Vital Signs 12/27/18 12/27/18 12/27/18 12/27/18 01:00 04:00 07:00 08:00 Temp 36.6 36.4 Pulse 75 73 80 76 Resp 18 20 B/P (MAP) 167/80 (109) 150/80 (103) Pulse Ox 97 97 O2 Delivery Room Air Room Air 12/27/18 12/27/18 08:00 10:02 Pulse Ox 95 O2 Delivery Room Air Room Air 12/27/18 00:00 Intake Total 900 ml Balance 900 ml Weight (Pounds): 280 Weight (Ounces): 0.0 Weight (Calculated Kilograms): 127.480021 Constitutional: appears stated age, AAO x 3; No apparent distress; well- developed, well-nourished Respiratory: No accessory muscle use, No respiratory distress, No chest tender, No chest expansion is symmetric; chest is bilaterally symmetric; No lungs clear to percussion; lungs clear to auscultation; No crackles, No rhonchi, No rales, No stridor, No wheezing, No pleural rub, No other Cardiovascular: regular rate-rhythm, S1 and S2 Gastrointestional: soft, audible bowel sounds; No spleenomegaly Extremities: other (Left lower extremity swelling.); No clubbing, No cyanosis, No significant edema Neurologic/Psychiatric: no motor/sensory deficits, alert, normal mood/affect, oriented x 3, power is 5/5 both on sides Skin: No rash, No ulcerations Results/Procedures: Labs Laboratory Tests 12/26/18 16:32: Glucometer 133H 12/26/18 22:05: Glucometer 171H 12/27/18 05:21: White Blood Count 6.3, Red Blood Count 3.35L, Hemoglobin 9.1L, Hematocrit 31L, Mean Corpuscular Volume 92, Mean Corpuscular Hemoglobin 27, Mean Corpuscular Hemoglobin Concent 30L, Red Cell Distribution Width 16.0H, Platelet Count 284, Mean Platelet Volume 9.4, Neutrophils (%) (Auto) 67, Lymphocytes (%) (Auto) 23, Monocytes (%) (Auto) 8, Eosinophils (%) (Auto) 2, Basophils (%) (Auto) 0, Neutrophils # (Auto) 4.2, Lymphocytes # (Auto) 1.4, Monocytes # (Auto) 0.5, Eosinophils # (Auto) 0.1, Basophils # (Auto) 0.0, Sodium Level 141, Potassium Level 3.8, Chloride Level 105, Carbon Dioxide Level 25, Anion Gap 11, Blood Urea Nitrogen 10, Creatinine 0.96, Estimat Glomerular Filtration Rate 58, BUN/Creatinine Ratio 10, Glucose Level 105, Calcium Level 9.2, Phosphorus Level 3.9, Magnesium Level 1.8 12/27/18 05:30: Glucometer 121H 12/27/18 11:17: Glucometer 168H Microbiology 12/24/18 MRSA Screen - Final, Complete MRSA not isolated A/P: Assessment/Dx: bilateral large pulmonary embolism, RV dysfunction, RV dilatation, pulmonary hypertension, tachycardia, Left lower extremity DVT Plan: this is a 68-year-old lady who presents with large pulmonary embolism with large occlusive thrombus in the main right pulmonary artery and moderate thrombus in the left pulmonary artery with evidence of RV strain including dilated RV with moderate to severe RV dysfunction. Acute pulmonary hypertension and evidence of pressure and volume overload with septal flattening and hyperdynamic LV. Sinus tachycardia. Although normal blood pressure; all of the above suggest significant pulmonary embolism. I spoke at length with the patient and recommended catheter directed thrombolytics as well as possible pulmonary intervention. There is also acute left lower extremity DVT and likely intervention is recommended. I discussed at length with the patient and all risks and complication were explained including the risk of fatal complication of 0.5 percent including intracranial bleeding. The patient understood and con sented to the procedure. catheter directed thrombolysis done on 12/25/2018 with right pulmonary artery angioplasty as well. Left deep femoral vein/popliteal vein catheter directed thrombolysis done as well. Patient has improved significantly clinically with significantly improved shortness of breath. echocardiogram today. Continue high dose oral anticoagulation. I also spoke to the family and patient and discussed that since it is unprovoked DVT and PE we will need workup for hypercoagulability and likely require long-term oral anti-coagulation. okay to discharge today with follow-up in the office in 2-3 weeks. Thank you for your consultation. Please call me if you have any questions. Rosemarie Maguire MD, FACP, FACC, FSCAI, FHRS, CCDS Interventional Cardiology Cardiac Electrophysiology Vascular Medicine and Endovascular Interventions Catalina MAGUIRE MD Dec 27, 2018 12:43
[2019-01-15] MEDS ORDERED: RIVAROXABAN 20 MG TABLET (XARELTO) PO SCH (17:00)
== END 2018-12-27 15:05 | disposition home or self-care (01) | DRG 982 ==
LOC: EDUNIT# 14:48 → ER 14:49 → ICU 20:20 → 4TH 12-25 08:45 → ICU 12-25 20:45 → 4TH 12-26 13:55
PROVIDERS: ADMIT Internal Medicine; ATTEND Internal Medicine
PROC: 027 Heart and Great Vessels, Dilation (ICD-10-PCS; principal; 2018-12-25)
PROC: B51B1ZZ Fluoroscopy of Right Lower Extremity Veins using Low Osmolar Contrast (ICD-10-PCS; 2018-12-25)
PROC: B5191ZZ Fluoroscopy of Inferior Vena Cava using Low Osmolar Contrast (ICD-10-PCS; 2018-12-25)
PROC: 4A023N6 Measurement of Cardiac Sampling and Pressure, Right Heart, Percutaneous Approach (ICD-10-PCS; 2018-12-25)
PROC: B2141ZZ Fluoroscopy of Right Heart using Low Osmolar Contrast (ICD-10-PCS; 2018-12-25)
PROC: B31T1ZZ Fluoroscopy of Left Pulmonary Artery using Low Osmolar Contrast (ICD-10-PCS; 2018-12-25)
PROC: B31S1ZZ Fluoroscopy of Right Pulmonary Artery using Low Osmolar Contrast (ICD-10-PCS; 2018-12-25)
PROC: 3E06317 Introduction of Other Thrombolytic into Central Artery, Percutaneous Approach (ICD-10-PCS; 2018-12-25)
PROC: 3E03317 Introduction of Other Thrombolytic into Peripheral Vein, Percutaneous Approach (ICD-10-PCS; 2018-12-25)
PROC: B31U1ZZ Fluoroscopy of Pulmonary Trunk using Low Osmolar Contrast (ICD-10-PCS; 2018-12-25)
DX: I26.99 Other pulmonary embolism without acute cor pulmonale (principal); I82.412 Acute embolism and thrombosis of left femoral vein; I82.432 Acute embolism and thrombosis of left popliteal vein; R06.03 Acute respiratory distress; I11.9 Hypertensive heart disease without heart failure; Z68.42 Body mass index [BMI] 45.0-49.9, adult; E11.36 Type 2 diabetes mellitus with diabetic cataract; E66.9 Obesity, unspecified; E78.00 Pure hypercholesterolemia, unspecified; R01.1 Cardiac murmur, unspecified; E03.9 Hypothyroidism, unspecified; G47.33 Obstructive sleep apnea (adult) (pediatric); M25.562 Pain in left knee; M25.462 Effusion, left knee; R20.0 Anesthesia of skin; E78.5 Hyperlipidemia, unspecified; I27.20 Pulmonary hypertension, unspecified; R09.02 Hypoxemia; I95.9 Hypotension, unspecified; D50.9 Iron deficiency anemia, unspecified; F17.290 Nicotine dependence, other tobacco product, uncomplicated; Z79.4 Long term (current) use of insulin
CPT/HCPCS: 36415; 71045; 71275; 75820; 80048; 80053; 81000; 81240; 81241; 82962; 83735; 84100; 85025; 85027; 85379; 85610; 85730; 87081; 87804; 93005; 93306; 93451; 93566; 93970; 94760; 94761; 96360

== ENCOUNTER 2019-01-19 13:48 | Outpatient (RCR) | payer MEDICARE ==
[~2019-01-19 13:48] MED LIST changes: +AMLO5TAB9 PO; +INSU100I29 SC; +METF-397 PO; +RIVA1TAB PO
== END 2019-04-19 | disposition home or self-care (01) ==
LOC: ONC 13:48
PROVIDERS: ATTEND Internal Medicine Hematology & Oncology
DX: Z08 Encounter for follow-up examination after completed treatment for malignant neoplasm (principal); Z85.3 Personal history of malignant neoplasm of breast; I48.0 Paroxysmal atrial fibrillation; I12.9 Hypertensive chronic kidney disease with stage 1 through stage 4 chronic kidney disease, or unspecified chronic kidney disease; N18.4 Chronic kidney disease, stage 4 (severe); I25.10 Atherosclerotic heart disease of native coronary artery without angina pectoris; E03.9 Hypothyroidism, unspecified; E78.5 Hyperlipidemia, unspecified; I08.1 Rheumatic disorders of both mitral and tricuspid valves; M85.89 Other specified disorders of bone density and structure, multiple sites; D69.6 Thrombocytopenia, unspecified; Z79.01 Long term (current) use of anticoagulants; Z88.2 Allergy status to sulfonamides; Z79.899 Other long term (current) drug therapy
CPT/HCPCS: 99213

== ENCOUNTER → 2019-01-27 | Outpatient (CLI) | payer MEDICARE | LOC: CARD 10:57 | PROVIDERS: ATTEND Internal Medicine Interventional Cardiology | DX: I82.413 Acute embolism and thrombosis of femoral vein, bilateral (principal); I26.99 Other pulmonary embolism without acute cor pulmonale; E11.9 Type 2 diabetes mellitus without complications; I10 Essential (primary) hypertension; E78.5 Hyperlipidemia, unspecified; I27.29 Other secondary pulmonary hypertension; I50.9 Heart failure, unspecified; I36.1 Nonrheumatic tricuspid (valve) insufficiency | CPT/HCPCS: 93306 ==

== ENCOUNTER → 2019-03-03 | Outpatient (CLI) | payer MEDICARE ==
--- NOTE | 2019-03-03 14:22 | Diagnostic Imaging Report ---
INDICATION: Routine screening. Comparison is made with prior mammogram from 06/11/2017 and 02/16/2015. 2-D and 3-D bilateral screening mammography was performed with CAD. Both breasts remain heterogeneously dense, limiting the sensitivity of mammography. Parenchymal and vascular calcifications again noted bilaterally and appear stable. No spiculated mass or malignant appearing microcalcifications are seen. Axillae are unremarkable. IMPRESSION: BI-RADS Category 2 No mammographic features suspicious for malignancy are identified. ACR BI-RADS Category 2: Benign findings. Result letter will be mailed to the patient. Note: At least 10% of breast cancer is not imaged by mammography. Dictated by: Dictated on workstation # [id number]
== END ==
LOC: RAD 13:08
PROVIDERS: ATTEND Internal Medicine
DX: Z12.31 Encounter for screening mammogram for malignant neoplasm of breast (principal)
CPT/HCPCS: 77067

== ENCOUNTER → 2019-08-24 | Outpatient (CLI) | payer MEDICARE ==
[~2019-08-24] MED LIST changes: -FELO5TAB3 PO; +FLD5TCR PO
== END ==
LOC: CARD 13:18
PROVIDERS: ATTEND Internal Medicine Interventional Cardiology
DX: I82.413 Acute embolism and thrombosis of femoral vein, bilateral (principal); I27.29 Other secondary pulmonary hypertension; I26.99 Other pulmonary embolism without acute cor pulmonale; I50.9 Heart failure, unspecified
CPT/HCPCS: 93306

== ENCOUNTER 2019-09-10 13:52 | Outpatient (RCR) | payer MEDICARE | END 2019-09-23 | disposition home or self-care (01) | LOC: ONC 13:52 | PROVIDERS: ATTEND Internal Medicine Hematology & Oncology | DX: D68.69 Other thrombophilia (principal); Z86.718 Personal history of other venous thrombosis and embolism; Z86.711 Personal history of pulmonary embolism; Z79.01 Long term (current) use of anticoagulants | CPT/HCPCS: 99213 ==

== ENCOUNTER → 2020-11-02 | Outpatient (CLI) | payer MEDICARE ==
[~2020-11-02] MED LIST changes: +AMLO-250 PO; -AMLO5TAB9 PO
--- NOTE | 2020-11-02 15:51 | Diagnostic Imaging Report ---
INDICATION: Fall with pain EXAM: Two view tibia-fibula performed. FINDINGS: There are arthritic changes to the knee and ankle with atherosclerotic vascular calcifications but no fracture or dislocation is identified. IMPRESSION: No acute appearing abnormality, chronic degenerative and atherosclerotic changes present. Dictated by: Dictated on workstation # [id number]
--- NOTE | 2020-11-02 15:51 | Diagnostic Imaging Report ---
INDICATION: Fall, pain. FINDINGS: Soft tissue swelling over the dorsum of the foot is best seen on the lateral view. There are atherosclerotic vascular calcifications. Soft tissue calcification lateral to the second metatarsophalangeal joint as a chronic finding present. No fracture or dislocation identified. IMPRESSION: Chronic findings as described. Soft tissue swelling noted, but no acute bony pathology apparent. Dictated by: Dictated on workstation # [id number]
--- NOTE | 2020-11-02 15:52 | Diagnostic Imaging Report ---
INDICATION: Injury with pain FINDINGS: There are atherosclerotic vascular calcifications. There is no widening of the mortise. There is swelling diffusely about the ankle. There are degenerative changes to the hind and visualized midfoot. No fracture however could not be identified. IMPRESSION: No acute appearing abnormality. Dictated by: Dictated on workstation # [id number]
== END ==
LOC: RAD 14:05
PROVIDERS: ATTEND Internal Medicine
DX: S99.912A Unspecified injury of left ankle, initial encounter (principal); M19.072 Primary osteoarthritis, left ankle and foot; X58.XXXA Exposure to other specified factors, initial encounter
CPT/HCPCS: 73590; 73610; 73630

== ENCOUNTER → 2021-02-06 | Outpatient (CLI) | payer MEDICARE ==
--- NOTE | 2021-02-06 16:11 | Diagnostic Imaging Report ---
INDICATION: Routine screening. COMPARISON: 03/03/2019 and 06/11/2017. TECHNIQUE: 2D and 3D bilateral screening mammography was performed with CAD. FINDINGS: Both breasts are heterogeneously dense, limiting the sensitivity of mammography. Both breasts demonstrate a fibronodular parenchymal pattern. There are extensive parenchymal and vascular calcifications within both breasts. The overall parenchymal pattern appears stable. No malignant-appearing microcalcifications are seen. The axillae are unremarkable. IMPRESSION: No mammographic features suspicious for malignancy are identified. ACR BI-RADS Category 2: Benign findings. Result letter will be mailed to the patient. Note: At least 10% of breast cancer is not imaged by mammography. Dictated by: Dictated on workstation # [id number]
== END ==
LOC: RAD 14:45
PROVIDERS: ATTEND Internal Medicine
DX: Z12.31 Encounter for screening mammogram for malignant neoplasm of breast (principal)
CPT/HCPCS: 77063; 77067